=== PATIENT | female | born 1985 | race Hispanic/Latino ===

== ENCOUNTER 2018-07-20 18:16 | Emergency (ER) | payer SELFPAY ==
--- OUTSIDE RECORDS SUMMARY | 2018-07-20 18:17 | XMS REPORT | Clinical Summary ---
:1985 Author Organization [facility] Address [address] [place] [address] Care Team Providers Name Role Phone Asked, No Pcp Primary Care Provider Unavailable Allergies No Known Allergies Current Medications Prescription Sig. Disp. Refills Start Date End Date Status methylPREDNISolone follow package 21 tablet 0 03/29/2018 (MEDROL DOSEPAK) 4 mg directions 8 tablet Active Problems Not on file Encounters Date Type Specialty Care Team Description 03/29/2018 Emergency Emergency Medicine Ghazala Pinto DO Insect bite, initial encounter (Primary Dx) after 07/19/2017 Social History Tobacco Use Types Packs/Day Years Used Date Never Assessed Sex Assigned at Date Recorded Not on file Last Filed Vital Signs Vital Sign Reading Time Taken Blood Pressure 118/74 03/29/2018 1:54 PM CDT Pulse 86 03/29/2018 1:54 PM CDT Temperature 37.1 C (98.7 F) 03/29/2018 1:54 PM CDT Respiratory Rate 16 03/29/2018 1:54 PM CDT Oxygen Saturation 93% 03/29/2018 1:54 PM CDT Inhaled Oxygen Concentration - - Weight - - Height 160 cm (5' 3") 03/29/2018 1:53 PM CDT Body Mass Index - - Plan of Treatment Not on file Results Not on fileafter 07/19/2017
[2018-07-20 19:16] LABS: Absolute Monocytes 0.7 K/uL (0.1-1.3); Absolute Neutrophil 6.9 K/uL (1.8-8.0); Basophils % 0.4 % (0-1.3); Eosinophils % 1.8 % (0-4.4); Hematocrit 38.5 % (36.0-45.0); Lymphocytes % 20.7 % (15.3-44.8); MCH 28.6 pg (27.0-35.0); MPV 10.9 fL (7.6-11.3); Monocytes % 6.8 % (3.3-12.3); RBC Red Blood Cell Count 4.48 M/uL (3.86-4.86)
[2018-07-20] MEDS ORDERED: ONDANSETRON 4 MG/2 ML VIAL ONE (19:24)
[2018-07-20] MEDS ORDERED: MORPHINE 4 MG/ML SYR ONE (19:24)
[2018-07-20] MEDS ORDERED: NA CHLORIDE 0.9% 1,000 ML ONE (19:24)
[2018-07-20 19:27] LABS: Urine Blood TRACE (NEG); Urine Glucose NEGATIVE (NEG); Urine Protein NEGATIVE (NEG); Urine Specific Gravity 1.025 (1.005-1.030)
[2018-07-20 19:34] LABS: ALT/SGPT 21 U/L (12-78); AST/SGOT 15 U/L (15-37); Albumin 3.7 g/dL (3.4-5.0); Alkaline Phosphatase 91 U/L (45-117); BUN Blood Urea Nitrogen 9 mg/dL (7-18); Bicarbonate 26 mmol/L (21-32); Bilirubin Direct 0.1 mg/dL (0-0.2); Bilirubin Total 0.3 mg/dL (0.2-1.0); Glucose Level 96 mg/dL (74-106); Lipase 101 U/L (73-393); Potassium 3.8 mmol/L (3.5-5.1); Sodium Level 140 mmol/L (136-145)
--- NOTE | 2018-07-20 21:38 | RAD REPORT ---
EXAM DESCRIPTION: CT - Abdomen Pelvis W Contrast - 07/20/2018 9:15 pm CLINICAL HISTORY: Abdominal pain. COMPARISON: 2014 TECHNIQUE: Computed axial tomography of the abdomen and pelvis was obtained. 100 cc Isovue-300 is ad ministered intravenously. Oral contrast was given. All CT scans are performed using dose optimization technique as appropriate and may include automated exposure control or mA/KV adjustment according to patient size. FINDINGS: The liver, spleen, pancreas, adrenals and kidneys appear unremarkable. The appendix is normal caliber. There is no evidence of diverticulitis A tiny umbilical hernia is present 2 centimeter irregularly-shaped right ovarian cyst is present with a small amount of free-fluid IMPRESSION: 2 centimeter irregularly-shaped right ovarian cyst is present with a small amount of antonia e-fluid. The cyst has recently ruptured
--- NOTE | 2018-07-20 22:38 | ER ---
Nurse's Notes [facility] Name: Suzy Hammer Age: 32 yrs Sex: Female : 1985 Arrival Date: 07/20/2018 Time: 18:17 Bed 17 Private MD: Diagnosis: Other ovarian cysts-ruptured right ovarian cyst;Diarrhea, unspecified Presentation: 07/20 18:21 Presenting complaint: Patient states: "I've been having a sharp pain on the right side aj1 of my abdomen for the past 2 days. Today every time I take a deep breath I have a sharp pain, and also when I walk." Reports RLQ pain, diarrhea. Denies N/V, fever. Transition of care: patient was not received from another setting of care. Onset of symptoms was July 18, 2018. Risk Assessment: Do you want to hurt yourself or someone else? Patient reports no desire to harm self or others. Initial Sepsis Screen: Does the patient meet any 2 criteria? No. Patient's initial sepsis screen is negative. Does the patient have a suspected source of infection? Yes: Acute abdominal pain. Care prior to arrival: None. 18:21 Method Of Arrival: Ambulatory aj1 18:21 Acuity: YULIANA 3 aj1 Triage Assessment: 18:23 General: Appears in no apparent distress. uncomfortable, Behavior is calm, cooperative, aj1 appropriate for age. Pain: Complains of pain in right lower quadrant Pain currently is 8 out of 10 on a pain scale. Neuro: Level of Consciousness is awake, alert, obeys commands. Cardiovascular: Patient's skin is warm and dry. Respiratory: Airway is patent Respiratory effort is even, unlabored, Respiratory pattern is regular, symmetrical. GI: Reports lower abdominal pain, diarrhea, Patient currently denies nausea, vomiting. 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 - Social history:: Smoking status: Patient uses tobacco products, smokes one-half pack cigarettes per day. - Ebola Screening: : Patient denies travel to an Ebola-affected area in the 21 days before illness onset. Screenin:08 Abuse screen: Denies threats or abuse. Denies injuries from another. Nutritional ch screening: No deficits noted. Tuberculosis screening: No symptoms or risk factors identified. Fall Risk None identified. Assessment: 19:08 General: Appears in no apparent distress. uncomfortable, Behavior is calm, cooperative, ch appropriate for age. Pain: Complains of pain in right lower quadrant and abdomen diffusely Pain currently is 7 out of 10 on a pain scale. Pain began gradually. Respiratory: No deficits noted. GI: Bowel sounds present X 4 quads. Abd is soft X 4 quads Abdomen is tender to palpation in right lower quadrant and left lower quadrant. 20:54 Reassessment: Patient appears in no apparent distress at this time. No changes from ak1 previously documented assessment. Patient and/or family updated on plan of care and expected duration. Pain level reassessed. Patient is alert, oriented x 3, equal unlabored respirations, skin warm/dry/pink. pt waiting for CT scan. 21:25 Reassessment: Patient appears in no apparent distress at this time. pt in CT. ak1 Vital Signs: 18:23 BP 120 / 68; Pulse 88; Resp 18; Temp 97.1; Pulse Ox 100% on R/A; Weight 99.79 kg (R); aj1 Height 5 ft. 3 in. (160.02 cm) (R); Pain 8/10; 19:35 BP 94 / 78; Pulse 81; Resp 16; Pulse Ox 100% on R/A; ak1 20:54 BP 94 / 61; Pulse 67; Resp 16; Pulse Ox 98% on R/A; ak1 18:23 Body Mass Index 38.97 (99.79 kg, 160.02 cm) aj1 ED Course: 18:17 Patient arrived in ED. as 18:23 Triage completed. aj1 18:23 Arm band placed on Patient placed in an exam room. aj1 18:27 Dre Solares NP is PHCP. pm1 18:27 Moses Reyes MD is Attending Physician. pm1 18:51 Wendy Pierre, THERESA is Primary Nurse. ch 19:08 Patient has correct armband on for positive identification. Placed in gown. Bed in low ch position. Call light in reach. Side rails up X 1. Adult w/ patient. Warm blanket given. 19:08 Initial lab(s) drawn, by ri, sent to lab. Urine collected: clean catch specimen. Inserted saline lock: 22 gauge in left forearm, using aseptic technique. Blood collected. 19:08 No provider procedures requiring assistance completed. 19:23 ocular care technician notified pt finished oral contrast. ak1 21:06 Patient moved to ID via wheelchair. sj 21:14 CT Abd/Pelvis - W/Contrast In Process Unspecified. EDMS 21:16 CT completed. Patient tolerated procedure well. Patient moved back from ID. mw3 22:58 IV discontinued, intact, bleeding controlled, No redness/swelling at site. Pressure ak1 dressing applied. Administered Medications: 19:22 Drug: Zofran 4 mg Route: IVP; Site: left forearm; ak1 20:56 Follow up: Response: No adverse reaction ak1 19:22 Drug: NS 0.9% 1000 ml Route: IV; Rate: 1000 ml; Site: left forearm; ak1 20:58 Follow up: IV Status: Completed infusion ak1 19:23 Drug: morphine 4 mg Route: IVP; Site: left forearm; ak1 20:56 Follow up: Response: No adverse reaction ak1 22:56 Drug: TORadol 30 mg Route: IVP; Site: left forearm; ak1 22:56 Follow up: Response: No adverse reaction ak1 Outcome: 22:37 Discharge ordered by MD. pm1 22:58 Discharged to home ambulatory, with family. ak1 22:58 Condition: good 22:58 Discharge instructions given to patient, Instructed on discharge instructions, follow up and referral plans. no drinking with medication, no driving heavy equipment, medication usage, Demonstrated understanding of instructions, follow-up care, medications, Prescriptions given X 2. 22:59 Patient left the ED. ak1 Signatures: Dispatcher [employer] EDMS Wendy Pierre, Elisabeth Poe RN, ch, RN RN Patricia Espinoza Amelia as Krenek, Amber, RN RN ak1 Dre Solares NP FLAT BED OPERATOR pm1 Monica Paula mw3
--- NOTE | 2018-07-20 22:38 | EDPHYS ---
Physician Documentation [facility] Name: Suzy Hammer Age: 32 yrs Sex: Female : 1985 Arrival Date: 07/20/2018 Time: 18:17 Bed 17 Private MD: ED Physician Moses Reyes HPI: 07/20 21:34 This 32 yrs old Female presents to ER via Ambulatory with complaints of pm1 Abdominal Pain. 21:34 The patient presents with abdominal pain right lower quadrant. Onset: The pm1 symptoms/episode began/occurred 2 day(s) ago. The symptoms do not radiate. Associated signs and symptoms: Pertinent positives: diarrhea, Pertinent negatives: nausea and vomiting, blood in stools, chest pain, dysuria, fever, shortness of breath. The symptoms are described as sharp. Modifying factors: The symptoms are alleviated by nothing, the symptoms are aggravated by touching the area, walking. The patient has not experienced similar symptoms in the past. The patient has not recently seen a physician. 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 - Social history:: Smoking status: Patient uses tobacco products, smokes one-half pack cigarettes per day. - Ebola Screening: : Patient denies travel to an Ebola-affected area in the 21 days before illness onset. ROS: 21:34 Constitutional: Negative for fever, chills, and weight loss, Eyes: Negative for injury, pm1 pain, redness, and discharge, ENT: Negative for injury, pain, and discharge, Neck: Negative for injury, pain, and swelling, Cardiovascular: Negative for chest pain, palpitations, and edema, Respiratory: Negative for shortness of breath, cough, wheezing, and pleuritic chest pain. 21:34 Back: Negative for injury and pain, : Negative for injury, bleeding, discharge, and swelling, MS/Extremity: Negative for injury and deformity, Skin: Negative for injury, rash, and discoloration, Neuro: Negative for headache, weakness, numbness, tingling, and seizure. 21:34 Abdomen/GI: Positive for abdominal pain, diarrhea, Negative for nausea and vomiting. Exam: 21:34 Constitutional: This is a well developed, well nourished patient who is awake, alert, pm1 and in no acute distress. Head/Face: Normocephalic, atraumatic. Eyes: Pupils equal round and reactive to light, extra-ocular motions intact. Lids and lashes normal. Conjunctiva and sclera are non-icteric and not injected. Cornea within normal limits. Periorbital areas with no swelling, redness, or edema. ENT: Nares patent. No nasal discharge, no septal abnormalities noted. Tympanic membranes are normal and external auditory canals are clear. Oropharynx with no redness, swelling, or masses, exudates, or evidence of obstruction, uvula midline. Mucous membranes moist. Neck: Trachea midline, no thyromegaly or masses palpated, and no cervical lymphadenopathy. Supple, full range of motion without nuchal rigidity, or vertebral point tenderness. No Meningismus. Chest/axilla: Normal chest wall appearance and motion. Nontender with no deformity. No lesions are appreciated. Cardiovascular: Regular rate and rhythm with a normal S1 and S2. No gallops, murmurs, or rubs. Normal PMI, no JVD. No pulse deficits. Respiratory: Lungs have equal breath sounds bilaterally, clear to auscultation and percussion. No rales, rhonchi or wheezes noted. No increased work of breathing, no retractions or nasal flaring. 21:34 Back: No spinal tenderness. No costovertebral tenderness. Full range of motion. Skin: Warm, dry with normal turgor. Normal color with no rashes, no lesions, and no evidence of cellulitis. MS/ Extremity: Pulses equal, no cyanosis. Neurovascular intact. Full, normal range of motion. 21:34 Abdomen/GI: Inspection: abdomen appears normal, Bowel sounds: normal, Palpation: soft, mild abdominal tenderness, in the right lower quadrant, mass, is not appreciated, rebound tenderness, is not appreciated. 21:34 Neuro: Orientation: is normal, Motor: is normal, Sensation: is normal, no obvious gross deficits. Vital Signs: 18:23 BP 120 / 68; Pulse 88; Resp 18; Temp 97.1; Pulse Ox 100% on R/A; Weight 99.79 kg (R); aj1 Height 5 ft. 3 in. (160.02 cm) (R); Pain 8/10; 19:35 BP 94 / 78; Pulse 81; Resp 16; Pulse Ox 100% on R/A; ak1 20:54 BP 94 / 61; Pulse 67; Resp 16; Pulse Ox 98% on R/A; ak1 18:23 Body Mass Index 38.97 (99.79 kg, 160.02 cm) aj1 MDM: 18:38 Patient medically screened. pm1 21:34 Data reviewed: vital signs. Data interpreted: Pulse oximetry: on room air is 98 %. pm1 Interpretation: normal. 22:36 Counseling: I had a detailed discussion with the patient and/or guardian regarding: the pm1 historical points, exam findings, and any diagnostic results supporting the discharge/admit diagnosis, lab results, radiology results, the need for outpatient follow up, to return to the emergency department if symptoms worsen or persist or if there are any questions or concerns that arise at home. 07/20 18:50 Order name: Basic Metabolic Panel; Complete Time: 19:36 pm1 07/20 18:50 Order name: CBC with Diff; Complete Time: 19:26 pm1 07/20 18:50 Order name: Creatinine for Radiology; Complete Time: 19:36 pm1 07/20 18:50 Order name: Hepatic Function; Complete Time: 19:36 pm1 07/20 18:50 Order name: Lipase; Complete Time: 19:36 pm1 07/20 19:14 Order name: Urine --Ancillary (enter results); Complete Time: 19:36 ms 07/20 18:50 Order name: IV Saline Lock; Complete Time: 19:12 pm1 07/20 18:50 Order name: Labs collected and sent; Complete Time: 19:12 pm1 07/20 18:50 Order name: CT Abd/Pelvis - W/Contrast; Complete Time: 22:50 pm1 07/20 19:14 Order name: Urine Dipstick--Ancillary (enter results); Complete Time: 19:36 ms Administered Medications: 19:22 Drug: Zofran 4 mg Route: IVP; Site: left forearm; ak1 20:56 Follow up: Response: No adverse reaction ak1 19:22 Drug: NS 0.9% 1000 ml Route: IV; Rate: 1000 ml; Site: left forearm; ak1 20:58 Follow up: IV Status: Completed infusion ak1 19:23 Drug: morphine 4 mg Route: IVP; Site: left forearm; ak1 20:56 Follow up: Response: No adverse reaction ak1 22:56 Drug: TORadol 30 mg Route: IVP; Site: left forearm; ak1 22:56 Follow up: Response: No adverse reaction ak1 Disposition: 07/20/18 22:37 Discharged to Home. Impression: Other ovarian cysts - ruptured right ovarian cyst, Diarrhea, unspecified. - Condition is Stable. - Discharge Instructions: Food Choices to Help Relieve Diarrhea, Adult, Diarrhea, Adult, Ovarian Cyst. - Prescriptions for Tylenol- Codeine #3 300-30 mg Oral Tablet - take 2 tablets by ORAL route every 6 hours As needed; 20 tablet. Naprosyn 500 mg Oral Tablet - take 1 tablet by ORAL route 2 times per day take with food; 30 tablet. - Medication Reconciliation Form, Thank You Letter, Prescription Opioid Use form. - Follow up: Emergency Department; When: As needed; Reason: Worsening of condition. Follow up: Private Physician; When: 2 - 3 days; Reason: Recheck today's complaints, Continuance of care, Re-evaluation by your physician. - Problem is new. - Symptoms have improved. Addendum: 07/23/2018 07:44 Co-signature as Attending Physician, Moses Reyes MD. r n Signatures: Dispatcher [employer] EDMS Elisabeth Rosales RN RN aj1 Moses Reyes MD MD rn Krenek, Amber, RN RN ak1 Dre Solares, OCCUPATIONAL THERAPIST AIDE OCCUPATIONAL THERAPIST AIDE pm1 Corrections: (The following items were deleted from the chart) 07/20 22:38 22:37 07/20/2018 22:37 Discharged to Home. Impression: Other ovarian cysts - ruptured pm1 ovarian cyst; Diarrhea, unspecified. Condition is Stable. Forms are Medication Reconciliation Form, Thank You Letter, Antibiotic Education, Prescription Opioid Use. Follow up: Emergency Department; When: As needed; Reason: Worsening of condition. Follow up: Private Physician; When: 2 - 3 days; Reason: Recheck today's complaints, Continuance of care, Re-evaluation by your physician. Problem is new. Symptoms have improved. pm1 22:59 22:38 07/20/2018 22:37 Discharged to Home. Impression: Other ovarian cysts - ruptured ak1 right ovarian cyst; Diarrhea, unspecified. Condition is Stable. Discharge Instructions: Food Choices to Help Relieve Diarrhea, Adult, Diarrhea, Adult, Ovarian Cyst. Prescriptions for Tylenol-Codeine #3 300-30 mg Oral Tablet - take 2 tablets by ORAL route every 6 hours As needed; 20 tablet, Naprosyn 500 mg Oral Tablet - take 1 tablet by ORAL route 2 times per day take with food; 30 tablet. and Forms are Medication Reconciliation Form, Thank You Letter, Prescription Opioid Use. Follow up: Emergency Department; When: As needed; Reason: Worsening of condition. Follow up: Private Physician; When: 2 - 3 days; Reason: Recheck today's complaints, Continuance of care, Re-evaluation by your physician. Problem is new. Symptoms have improved. pm1
[2018-07-20] MEDS ORDERED: KETOROLAC 30 MG/ML INJ ONE (22:53)
[2018-07-20 23:18] VITALS: TEMP 97.1
[2018-07-20 23:20] VITALS: BP 94/61; O2SAT 98
== END 2018-07-20 22:59 | disposition home or self-care (01) ==
LOC: ER 18:16
DX: N83.291 Other ovarian cyst, right side (principal); R19.7 Diarrhea, unspecified; F17.210 Nicotine dependence, cigarettes, uncomplicated
CPT/HCPCS: 36415; 74177; 80048; 80076; 81003; 81025; 83690; 85025; 96361; 96374; 96375; 99284; J2405; J7030; Q9967

== ENCOUNTER 2018-11-01 21:33 | Emergency (ER) | payer SELFPAY ==
--- OUTSIDE RECORDS SUMMARY | 2018-11-01 21:36 | XMS REPORT | Clinical Summary ---
:1985 Author Organization [facility] Address [address] [place] [address] Care Team Providers Name Role Phone Asked, No Pcp Primary Care Provider Unavailable Allergies No Known Allergies Medications Medication Sig Dispensed Refills Start Date End Date Status methylPREDNISolone follow package 21 tablet 0 03/29/2018 (MEDROL DOSEPAK) 4 mg directions 8 tablet Active Problems Not on file Encounters Date Type Specialty Care Team Description 03/29/2018 Emergency Emergency Medicine Ghazala Pinto DO Insect bite, initial encounter (Primary Dx) after 10/31/2017 Social History Tobacco Use Types Packs/Day Years Used Date Never Assessed Sex Assigned at Date Recorded Not on file Job Start Date Occupation Industry Not on file Not on file Not on file Travel History Travel Start Travel End No recent travel history available. Last Filed Vital Signs Vital Sign Reading [...] Not on file Results Not on fileafter 10/31/2017 Advance Directives Patient has advance care planning documents on file. For more information, please contact:[facility] [place] [address]
[2018-11-01 22:22] LABS: Absolute Lymphocytes (CBC) 2.6 K/uL (0.7-4.9); Absolute Monocytes 0.7 K/uL (0.1-1.3); Absolute Neutrophil 7.5 K/uL (1.8-8.0); Basophils % 0.5 % (0-1.3); Eosinophils % 2.1 % (0-4.4); Lymphocytes % 23.2 % (15.3-44.8); MPV 10.5 fL (7.6-11.3); Monocytes % 6.4 % (3.3-12.3); RBC Red Blood Cell Count 4.41 M/uL (3.86-4.86)
[2018-11-01 22:53] LABS: ALT/SGPT 38 U/L (12-78); AST/SGOT 28 U/L (15-37); Albumin 3.5 g/dL (3.4-5.0); Alkaline Phosphatase 110 U/L (45-117); BUN Blood Urea Nitrogen 12 mg/dL (7-18); Bicarbonate 24 mmol/L (21-32); Bilirubin Direct < 0.1 mg/dL (0-0.2); Bilirubin Total 0.2 mg/dL (0.2-1.0); Glucose Level 87 mg/dL (74-106); Potassium 3.4 mmol/L (3.5-5.1); Protein, Total 7.3 g/dL (6.4-8.2); Sodium Level 140 mmol/L (136-145); Troponin (Emerg Dept Use Only) < 0.02 ng/mL (0.0-0.045)
--- NOTE | 2018-11-01 22:58 | ER ---
Nurse's Notes [facility] Name: Suzy Hammer Age: 33 yrs Sex: Female : 1985 Arrival Date: 11/01/2018 Time: 21:34 Bed 28 Private MD: Diagnosis: Chest pain, unspecified Presentation: 11/01 21:44 Presenting complaint: Patient states: "Early today I had a sharp pain on her neck and aj1 then through the day my chest started hurting, and when I try to take a deep breath it hurts, I get a sharp pain" Denies cough, fever, congestion. Denies injury. Denies shortness of breath, palpitations. Transition of care: patient was not received from another setting of care. Onset of symptoms was November 01, 2018. Risk Assessment: Do you want to hurt yourself or someone else? Patient reports no desire to harm self or others. Initial Sepsis Screen: Does the patient meet any 2 criteria? No. Patient's initial sepsis screen is negative. Does the patient have a suspected source of infection? No. Patient's initial sepsis screen is negative. Care prior to arrival: None. 21:44 Method Of Arrival: Ambulatory aj 21:44 Acuity: YULIANA 3 aj1 Triage Assessment: 21:46 General: Appears in no apparent distress. comfortable, Behavior is calm, cooperative, aj1 appropriate for age. Pain: Complains of pain in anterior aspect of left upper chest Pain radiates to neck Pain currently is 8 out of 10 on a pain scale. Neuro: Level of Consciousness is awake, alert, obeys commands. Cardiovascular: Reports chest pain, Patient's skin is warm and dry. 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 - Social history:: Smoking status: Patient uses tobacco products, denies chronic smoking, but will smoke occasionally. - Ebola Screening: : Patient denies travel to an Ebola-affected area in the 21 days before illness onset. Screenin:17 Abuse screen: Denies threats or abuse. Denies injuries from another. Nutritional rv screening: No deficits noted. Tuberculosis screening: No symptoms or risk factors identified. Fall Risk None identified. Assessment: 22:16 General: Appears in no apparent distress. uncomfortable, Behavior is calm, cooperative. rv Pain: Complains of pain in chest Pain radiates to left arm Pain began gradually, today. Neuro: Level of Consciousness is awake, alert, obeys commands, Oriented to person, place, time, situation. Cardiovascular: Capillary refill < 3 seconds. Respiratory: Airway is patent. GI: No signs and/or symptoms were reported involving the gastrointestinal system. : No signs and/or symptoms were reported regarding the genitourinary system. EENT: No signs and/or symptoms were reported regarding the EENT system. Derm: Skin is intact. Vital Signs: 21:46 BP 110 / 70; Pulse 91; Resp 20; Temp 97.7; Pulse Ox 97% on R/A; Weight 101.6 kg (R); aj1 Height 5 ft. 3 in. (160.02 cm) (R); Pain 8/10; 23:15 BP 116 / 58; Pulse 85; Resp 16; Temp 98.8; Pulse Ox 98% ; lt1 21:46 Body Mass Index 39.68 (101.60 kg, 160.02 cm) aj1 ED Course: 21:34 Patient arrived in ED. es 21:45 Triage completed. aj1 21:46 Arm band placed on Patient placed in an exam room. aj1 21:57 Dre Solares NP is PHCP. pm1 21:57 Rick Mathew MD is Attending Physician. pm1 22:00 Inserted saline lock: 20 gauge in left antecubital area, using aseptic technique. Blood rv collected. Patient maintains SpO2 saturation greater than 95% on room air. 22:17 Patient has correct armband on for positive identification. Placed in gown. Bed in low rv position. Call light in reach. Side rails up X 1. Adult w/ patient. equipment monitor phototypesetting on. Pulse ox on. NIBP on. 23:02 Chest Single View In Process Unspecified. EDMS 23:45 No provider procedures requiring assistance completed. IV discontinued, bleeding rv controlled, No redness/swelling at site. Pressure dressing applied. Administered Medications: 23:15 Drug: TORadol 30 mg Route: IVP; Site: left antecubital; rv 23:45 Follow up: Response: Pain is decreased rv Outcome: 22:57 Discharge ordered by MD. pm1 23:46 Discharged to home ambulatory. rv 23:46 Condition: good 23:46 Discharge instructions given to patient, Instructed on discharge instructions, follow up and referral plans. Demonstrated understanding of instructions, follow-up care. 23:46 Patient left the ED. rv Signatures: Dispatcher [employer] Elisabeth Olmedo RN RN aj1 Margarita Cantu Patrick, ROOM MANAGER ROOM MANAGER pm1 Facundo Quezada RN RN rv Digna Cota lt1
--- NOTE | 2018-11-01 22:59 | EDPHYS ---
Physician Documentation [facility] Name: Suzy Hammer Age: 33 yrs Sex: Female : 1985 Arrival Date: 11/01/2018 Time: 21:34 Bed 28 Private MD: ED Physician Rick Mathew HPI: 11/01 22:07 This 33 yrs old Female presents to ER via Ambulatory with complaints of Chest pm1 Pain, Neck Pain, <24hrs Old. 22:07 The patient or guardian reports chest pain that is located primarily in the anterior pm1 aspect of left upper chest. The pain does not radiate. Associated signs and symptoms: Pertinent positives: Left sided neck pain, Pertinent negatives: abdominal pain, cough, diaphoresis, dizziness, nausea, shortness of breath, vomiting. The chest pain is described as sharp. Duration: The patient or guardian reports a single episode, that is still ongoing. Modifying factors: The symptoms are alleviated by Better with palpation to area of pain. the symptoms are aggravated by deep breath. Severity of pain: in the emergency department the pain is unchanged. The patient has not experienced similar symptoms in the past. The patient has not recently seen a physician. 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 - Social history:: Smoking status: Patient uses tobacco products, denies chronic smoking, but will smoke occasionally. - Ebola Screening: : Patient denies travel to an Ebola-affected area in the 21 days before illness onset. ROS: 22:07 Constitutional: Negative for fever, chills, and weight loss, Eyes: Negative for injury, pm1 pain, redness, and discharge, ENT: Negative for injury, pain, and discharge. 22:07 Abdomen/GI: Negative for abdominal pain, nausea, vomiting, diarrhea, and constipation, Back: Negative for injury and pain, : Negative for injury, bleeding, discharge, and swelling, MS/Extremity: Negative for injury and deformity, Skin: Negative for injury, rash, and discoloration, Neuro: Negative for headache, weakness, numbness, tingling, and seizure. 22:07 Neck: Positive for stiffness, of the left trapezius. 22:07 Cardiovascular: Positive for chest pain, Negative for edema, orthopnea, palpitations. Exam: 22:07 Constitutional: This is a well developed, well nourished patient who is awake, alert, pm1 and in no acute distress. Head/Face: Normocephalic, atraumatic. Eyes: Pupils equal round and reactive to light, extra-ocular motions intact. Lids and lashes normal. Conjunctiva and sclera are non-icteric and not injected. Cornea within normal limits. Periorbital areas with no swelling, redness, or edema. ENT: Nares patent. No nasal discharge, no septal abnormalities noted. Tympanic membranes are normal and external auditory canals are clear. Oropharynx with no redness, swelling, or masses, exudates, or evidence of obstruction, uvula midline. Mucous membranes moist. Neck: Trachea midline, no thyromegaly or masses palpated, and no cervical lymphadenopathy. Supple, full range of motion without nuchal rigidity, or vertebral point tenderness. No Meningismus. 22:07 Cardiovascular: Regular rate and rhythm with a normal S1 and S2. No gallops, murmurs, or rubs. Normal PMI, no JVD. No pulse deficits. Respiratory: Lungs have equal breath sounds bilaterally, clear to auscultation and percussion. No rales, rhonchi or wheezes noted. No increased work of breathing, no retractions or nasal flaring. Abdomen/GI: Soft, non-tender, with normal bowel sounds. No distension or tympany. No guarding or rebound. No evidence of tenderness throughout. Back: No spinal tenderness. No costovertebral tenderness. Full range of motion. Skin: Warm, dry with normal turgor. Normal color with no rashes, no lesions, and no evidence of cellulitis. MS/ Extremity: Pulses equal, no cyanosis. Neurovascular intact. Full, normal range of motion. 22:07 Chest/axilla: Inspection: normal, Palpation: tenderness, of the anterior aspect of left upper chest, that totally reproduces the patient's complaints, Deep breathing reproduces her pain. 22:07 Neuro: Orientation: is normal, Motor: is normal, moves all fours. Vital Signs: 21:46 BP 110 / 70; Pulse 91; Resp 20; Temp 97.7; Pulse Ox 97% on R/A; Weight 101.6 kg (R); aj1 Height 5 ft. 3 in. (160.02 cm) (R); Pain 8/10; 23:15 BP 116 / 58; Pulse 85; Resp 16; Temp 98.8; Pulse Ox 98% ; lt1 21:46 Body Mass Index 39.68 (101.60 kg, 160.02 cm) aj1 MDM: 21:57 Patient medically screened. pm1 22:10 Data reviewed: vital signs. Data interpreted: Pulse oximetry: on room air is 97 %. pm1 Interpretation: normal. 22:57 Counseling: I had a detailed discussion with the patient and/or guardian regarding: the pm1 historical points, exam findings, and any diagnostic results supporting the discharge/admit diagnosis, lab results, radiology results, the need for outpatient follow up, to return to the emergency department if symptoms worsen or persist or if there are any questions or concerns that arise at home. 11/01 22:19 Order name: Basic Metabolic Panel; Complete Time: 22:56 EDMS 11/01 22:19 Order name: Liver (Hepatic) Function; Complete Time: 22:56 EDMS 11/01 21:58 Order name: EKG; Complete Time: 22:27 pm1 11/01 21:58 Order name: Cardiac monitoring; Complete Time: 22:18 pm1 11/01 21:58 Order name: EKG - Nurse/Tech; Complete Time: 22:18 pm1 11/01 22:19 Order name: Troponin (Emerg Dept Use Only); Complete Time: 22:56 EDMS 11/01 22:19 Order name: CBC with Automated Diff; Complete Time: 22:39 EDMS 11/01 22:22 Order name: Chest Single View EDMS 11/01 21:58 Order name: IV Saline Lock; Complete Time: 22:19 pm1 11/01 21:58 Order name: Labs collected and sent; Complete Time: 22:19 pm1 11/01 21:58 Order name: O2 Per Protocol; Complete Time: 22:19 pm1 11/01 21:58 Order name: O2 Sat Monitoring; Complete Time: 22:19 pm1 Administered Medications: 23:15 Drug: TORadol 30 mg Route: IVP; Site: left antecubital; rv 23:45 Follow up: Response: Pain is decreased rv Disposition: 11/02 06:20 Co-signature as Attending Physician, Rick Mathew MD I agree with the assessment and tw4 plan of care. Disposition: 11/01/18 22:57 Discharged to Home. Impression: Chest pain, unspecified. - Condition is Stable. - Discharge Instructions: Nonspecific Chest Pain. - Medication Reconciliation Form, Thank You Letter, Antibiotic Education, Prescription Opioid Use form. - Follow up: Emergency Department; When: As needed; Reason: Worsening of condition. Follow up: Private Physician; When: 2 - 3 days; Reason: Recheck today's complaints, Continuance of care, Re-evaluation by your physician. - Problem is new. - Symptoms have improved. Signatures: Dispatcher [employer] EDMS Elisabeth Rosales, RN RN aj1 Dre Solares, FRENCH EDGE OPERATOR FRENCH EDGE OPERATOR pm1 Rick Mathew MD MD tw4 Facundo Quezada RN RN rv Corrections: (The following items were deleted from the chart) 11/01 22:32 22:27 BASIC METABOLIC PANEL+C.LAB.BRZ ordered. [facility] EDID 22:32 22:27 CBC+H.LAB.BRZ ordered. [facility] EDID 22:32 22:27 HEPATIC FUNCTION+C.LAB.BRZ ordered. [facility] EDID 22:32 22:27 TROPONIN (EMERG DEPT USE ONLY)+C.LAB.BRZ ordered. [facility] EDID 22:57 22:27 Chest Single View+RAD.RAD.BRZ ordered. [facility] EDID 23:46 22:57 11/01/2018 22:57 Discharged to Home. Impression: Chest pain, unspecified. rv Condition is Stable. Forms are Medication Reconciliation Form, Thank You Letter, Antibiotic Education, Prescription Opioid Use. Follow up: Emergency Department; When: As needed; Reason: Worsening of condition. Follow up: Private Physician; When: 2 - 3 days; Reason: Recheck today's complaints, Continuance of care, Re-evaluation by your physician. Problem is new. Symptoms have improved. pm1
[2018-11-01] MEDS ORDERED: KETOROLAC 30 MG/ML INJ ONE (23:18)
[2018-11-02 01:18] VITALS: BP 116/58; TEMP 98.8; O2SAT 98
--- NOTE | 2018-11-02 07:45 | EKG ---
Test Date: 2018-11-01 Test Time: 21:55:27 Phd Internship: MEASUREMENT RESULTS: Intervals: Rate: 76 MN: 140 QRSD: 94 QT: 384 QTc: 432 [place]: P: 59 MN: 140 QRS: 40 T: 31 INTERPRETIVE STATEMENTS: Normal sinus rhythm with sinus arrhythmia Normal ECG No previous ECG available for comparison Electronically Signed On 11-02-18 06:51:44 VOICE PROFESSOR by Roscoe Cummings
--- NOTE | 2018-11-02 08:49 | RAD REPORT ---
EXAM DESCRIPTION: RAD - Chest Single View - 11/01/2018 11:01 pm CLINICAL HISTORY: Chest pain COMPARISON: July 2015 TECHNIQUE: AP portable chest image was obtained 2240 hours . FINDINGS: Lungs are clear. Heart and vasculature are normal. No measurable pleural effusion and no p neumothorax. No acute bony abnormality seen. No acute aortic findings suspected. IMPRESSION: No acute cardiopulmonary process. No significant interval change.
== END 2018-11-01 23:46 | disposition home or self-care (01) ==
LOC: ER 21:33
DX: R07.9 Chest pain, unspecified (principal); Z72.0 Tobacco use
CPT/HCPCS: 36415; 71045; 80048; 80076; 84484; 85025; 93005; 96374; 99285

== ENCOUNTER 2019-03-07 20:14 | Emergency (ER) | payer SELFPAY ==
[2019-03-07] MEDS ORDERED: NA CHLORIDE 0.9% 1,000 ML ONE (20:47)
[2019-03-07 21:02] LABS: Basophils % 0.3 % (0-1.3); Eosinophils % 0.8 % (0-4.4); Hematocrit 39.5 % (36.0-45.0); Lymphocytes % 23.1 % (15.3-44.8); MPV 10.7 fL (7.6-11.3); Monocytes % 6.3 % (3.3-12.3); RBC Red Blood Cell Count 4.51 M/uL (3.86-4.86)
[2019-03-07 21:20] LABS: ALT/SGPT 19 U/L (12-78); AST/SGOT 13 U/L (15-37); Albumin 3.7 g/dL (3.4-5.0); Alkaline Phosphatase 71 U/L (45-117); BUN Blood Urea Nitrogen 7 mg/dL (7-18); Bicarbonate 25 mmol/L (21-32); Bilirubin Direct 0.1 mg/dL (0-0.2); Bilirubin Total 0.5 mg/dL (0.2-1.0); Glucose Level 99 mg/dL (74-106); Lipase 68 U/L (73-393); Magnesium 2.3 mg/dL (1.8-2.4); NT PRO-BNP 23 pg/mL (<125); Potassium 3.4 mmol/L (3.5-5.1); Protein, Total 7.2 g/dL (6.4-8.2); Sodium Level 143 mmol/L (136-145); Troponin (Emerg Dept Use Only) < 0.02 ng/mL (0.0-0.045)
--- NOTE | 2019-03-07 21:27 | RAD REPORT ---
EXAM DESCRIPTION: RAD - Chest Single View - 03/07/2019 9:14 pm CLINICAL HISTORY: CHEST PAIN Chest pain. COMPARISON: <Comparisons> FINDINGS: Portable technique limits examination quality. The lungs are grossly clear. The heart is normal in size. No displaced fractures. IMPRESSION: No acute intrathoracic process suspected.
[2019-03-07] MEDS ORDERED: MORPHINE 4 MG/ML SYR ONE (21:30)
[2019-03-07] MEDS ORDERED: ONDANSETRON 4 MG/2 ML VIAL ONE (21:30)
[2019-03-07] MEDS ORDERED: POTASSIUM 25 MEQ EFFERV TAB ONE (21:56)
[2019-03-07 22:18] LABS: Protime INR 1.01
[2019-03-07 22:23] LABS: Urine Blood TRACE (NEG); Urine Glucose NEGATIVE (NEG); Urine Protein TRACE (NEG); Urine Specific Gravity 1.025 (1.005-1.030); Urine pH 6.5 (5.0-7.0)
--- NOTE | 2019-03-07 23:38 | ER ---
Nurse's Notes [facility] Name: Suzy Hammer Age: 33 yrs Sex: Female : 1985 Arrival Date: 03/07/2019 Time: 20:15 Bed 8 Private MD: Diagnosis: Chest pain, unspecified Presentation: 03/07 20:23 Presenting complaint: Patient states: Chest pain for the past 3 days that radiates to aj1 the left arm, that is worse with deep breathing. Denies cough, denies SOB. Transition of care: patient was not received from another setting of care. Onset of symptoms was March 04, 2019. Risk Assessment: Do you want to hurt yourself or someone else? Patient reports no desire to harm self or others. Initial Sepsis Screen: Does the patient meet any 2 criteria? No. Patient's initial sepsis screen is negative. Does the patient have a suspected source of infection? No. Patient's initial sepsis screen is negative. Care prior to arrival: None. 20:23 Method Of Arrival: Ambulatory aj1 20:23 Acuity: YULIANA 3 aj1 Triage Assessment: 20:24 General: Appears in no apparent distress. comfortable, Behavior is calm, cooperative, aj1 appropriate for age. Pain: Complains of pain in chest Pain radiates to left arm Pain currently is 8 out of 10 on a pain scale. Quality of pain is described as stabbing, Pain began 2-3 days ago. Neuro: Level of Consciousness is awake, alert, obeys commands, Oriented to person, place, time, situation. Cardiovascular: Reports chest pain, Patient's skin is warm and dry. Respiratory: Airway is patent Respiratory effort is even, unlabored, Respiratory pattern is regular, symmetrical. 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 - Social history:: Smoking status: Patient/guardian denies using tobacco. - Ebola Screening: : Patient denies travel to an Ebola-affected area in the 21 days before illness onset. - Family history:: not pertinent. Screenin:48 Abuse screen: Denies threats or abuse. Nutritional screening: No deficits noted. jd3 Tuberculosis screening: No symptoms or risk factors identified. Fall Risk IV access (20 points). Ambulatory Aid- None/Bed Rest/Nurse Assist (0 pts). Gait- Normal/Bed Rest/Wheelchair (0 pts) Mental Status- Oriented to own ability (0 pts). Total Panchal Fall Scale indicates No Risk (0-24 pts). Assessment: 20:46 General: Appears in no apparent distress. uncomfortable, Behavior is calm, cooperative, jd3 appropriate for age. Pain: Complains of pain in chest Pain radiates to left arm Pain currently is 8 out of 10 on a pain scale. Quality of pain is described as sharp, Is continuous. Neuro: Level of Consciousness is awake, alert, obeys commands, Oriented to person, place, time, situation. Cardiovascular: Reports chest pain, Heart tones S1 S2 present Capillary refill < 3 seconds Patient's skin is warm and dry. Rhythm is regular. Respiratory: Airway is patent Respiratory effort is even, unlabored, Respiratory pattern is regular, symmetrical, Breath sounds are clear bilaterally. Denies shortness of breath. GI: Abdomen is round non-distended, Abd is soft and non tender X 4 quads. Reports diarrhea, Patient currently denies abdominal pain, nausea, vomiting. : No signs and/or symptoms were reported regarding the genitourinary system. EENT: No signs and/or symptoms were reported regarding the EENT system. Derm: Skin is intact, Skin is dry, Skin is normal, Skin temperature is warm. Musculoskeletal: Circulation, motion, and sensation intact. Range of motion: intact in all extremities. 21:30 Reassessment: Patient appears in no apparent distress at this time. Patient and/or jd3 family updated on plan of care and expected duration. Pain level reassessed. Patient is alert, oriented x 3, equal unlabored respirations, skin warm/dry/pink. 22:15 Reassessment: Patient appears in no apparent distress at this time. Patient and/or jd3 family updated on plan of care and expected duration. Pain level reassessed. Patient is alert, oriented x 3, equal unlabored respirations, skin warm/dry/pink. 23:00 Reassessment: Patient appears in no apparent distress at this time. Patient and/or jd3 family updated on plan of care and expected duration. Pain level reassessed. Patient is alert, oriented x 3, equal unlabored respirations, skin warm/dry/pink. reporting pain, provider notified. no new orders at this time. 23:49 Reassessment: Patient appears in no apparent distress at this time. Patient and/or jd3 family updated on plan of care and expected duration. Pain level reassessed. Patient is alert, oriented x 3, equal unlabored respirations, skin warm/dry/pink. Neuro: Level of Consciousness is awake, alert, obeys commands, Oriented to person, place, time, situation. Cardiovascular: Capillary refill < 3 seconds Patient's skin is warm and dry. Respiratory: Airway is patent Respiratory effort is even, unlabored, Respiratory pattern is regular, symmetrical. GI: No signs and/or symptoms were reported involving the gastrointestinal system. Vital Signs: 20:24 BP 117 / 70; Pulse 77; Resp 18; Temp 97.4; Pulse Ox 99% on R/A; Weight 106.59 kg (R); aj1 Height 5 ft. 3 in. (160.02 cm) (R); Pain 8/10; 21:44 BP 110 / 72; Pulse 67; Resp 17 S; Pulse Ox 100% on R/A; Pain 7/10; jd3 22:24 BP 111 / 70; Pulse 71; Resp 18 S; Pulse Ox 99% on R/A; cc3 23:52 BP 106 / 73; Pulse 71; Resp 16 S; Pulse Ox 98% on R/A; jd3 20:24 Body Mass Index 41.63 (106.59 kg, 160.02 cm) aj1 ED Course: 20:15 Patient arrived in ED. es 20:20 Saman Orourke, THERESA is Primary Nurse. jd3 20:24 Triage completed. aj1 20:24 Arm band placed on Patient placed in an exam room. aj1 20:28 Omega Valadez MD is Attending Physician. [facility] 20:35 Inserted saline lock: 20 gauge in right antecubital area, using aseptic technique. jd3 Blood collected. Patient maintains SpO2 saturation greater than 95% on room air. 20:49 Patient has correct armband on for positive identification. Bed in low position. Call jd3 light in reach. Side rails up X 1. grinder operator on. Pulse ox on. NIBP on. 21:12 XRAY Chest (1 view) In Process Unspecified. EDMS 22:22 Notified ED physician of a critical lab result(s). D-dimer of [id number] Dr Valadez notified. bb 22:45 CT Chest For PE Angio In Process Unspecified. EDMS 23:13 US Extremity Venous W Compression Jose In Process Unspecified. EDMS 23:51 No provider procedures requiring assistance completed. IV discontinued, intact, jd3 bleeding controlled, No redness/swelling at site. Pressure dressing applied. Administered Medications: 20:35 Drug: NS 0.9% 1000 ml Route: IV; Rate: 125 ml/hr; Site: right antecubital; cc3 23:55 Follow up: Response: No adverse reaction; IV Status: Order to discontinue infusion jd3 21:19 Drug: morphine 4 mg Route: IVP; Site: right antecubital; jd3 22:15 Follow up: Response: No adverse reaction jd3 21:19 Drug: Zofran 4 mg Route: IVP; Site: right antecubital; jd3 22:15 Follow up: Response: No adverse reaction jd3 21:44 Drug: Potassium Effervescent Tablet 25 mEq Route: PO; jd3 22:40 Follow up: Response: No adverse reaction jd3 23:36 CANCELLED (Physician Discretion): [place] 10 mg-325 mg 1 tabs PO once jd3 23:36 Drug: [place] (7.5 mg-325 mg) 1 tabs Route: PO; jd3 23:54 Follow up: Response: No adverse reaction jd3 23:48 Drug: Aspirin 81 mg Route: PO; jd3 23:54 Follow up: Response: No adverse reaction jd3 Outcome: 23:35 Discharge ordered by MD. palmer 23:51 Discharged to home ambulatory, with family. jd3 23:51 Condition: stable 23:51 Discharge instructions given to patient, family, Instructed on discharge instructions, follow up and referral plans. medication usage, Demonstrated understanding of instructions, follow-up care, medications, Prescriptions given X 2. 23:56 Patient left the ED. jd3 Signatures: Dispatcher [employer] Elisabeth Olmedo RN RN ajOmega Meeks MD MD cha Salyer, Edna es Ballard, Brenda, RN RN Saman Owens RN RN jd3 Alysia Davalos cc3 Corrections: (The following items were deleted from the chart) 21:52 21:44 Pulse 67bpm; Resp 17bpm; Spontaneous; Pulse Ox 100% RA; Pain 03/27; pinky vance
--- NOTE | 2019-03-07 23:39 | EDPHYS ---
Physician Documentation [facility] Name: Suzy Hammer Age: 33 yrs Sex: Female : 1985 Arrival Date: 03/07/2019 Time: 20:15 Bed 8 Private MD: ED Physician Omega Valadez HPI: 03/07 20:35 This 33 yrs old Female presents to ER via Ambulatory with complaints of Chest estela Pain. 20:35 The patient or guardian reports chest pain that is located primarily in the anterior estela chest wall, left. The pain does not radiate. Associated signs and symptoms: The patient has no apparent associated signs or symptoms. The chest pain is described as sharp, stabbing. Duration: The patient or guardian reports multiple episodes, that wax and wane. Modifying factors: The symptoms are alleviated by remaining still, rest, the symptoms are aggravated by deep breath, movement, palpation of area. 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 - Social history:: Smoking status: Patient/guardian denies using tobacco. - Ebola Screening: : Patient denies travel to an Ebola-affected area in the 21 days before illness onset. - Family history:: not pertinent. ROS: 20:35 Constitutional: Negative for fever, chills, and weight loss, Eyes: Negative for injury, estela pain, redness, and discharge, ENT: Negative for injury, pain, and discharge, Neck: Negative for injury, pain, and swelling, Cardiovascular: Negative for chest pain, palpitations, and edema, Respiratory: Negative for shortness of breath, cough, wheezing, and pleuritic chest pain, Abdomen/GI: Negative for abdominal pain, nausea, vomiting, diarrhea, and constipation, Back: Negative for injury and pain, : Negative for injury, bleeding, discharge, and swelling, MS/Extremity: Negative for injury and deformity, Skin: Negative for injury, rash, and discoloration, Neuro: Negative for headache, weakness, numbness, tingling, and seizure, Psych: Negative for depression, anxiety, suicide ideation, homicidal ideation, and hallucinations, Allergy/Immunology: Negative for hives, rash, and allergies, Endocrine: Negative for neck swelling, polydipsia, polyuria, polyphagia, and marked weight changes, Hematologic/Lymphatic: Negative for swollen nodes, abnormal bleeding, and unusual bruising. Exam: 20:35 Constitutional: This is a well developed, well nourished patient who is awake, alert, estela and in no acute distress. Head/Face: Normocephalic, atraumatic. Eyes: Pupils equal round and reactive to light, extra-ocular motions intact. Lids and lashes normal. Conjunctiva and sclera are non-icteric and not injected. Cornea within normal limits. Periorbital areas with no swelling, redness, or edema. ENT: Nares patent. No nasal discharge, no septal abnormalities noted. Tympanic membranes are normal and external auditory canals are clear. Oropharynx with no redness, swelling, or masses, exudates, or evidence of obstruction, uvula midline. Mucous membranes moist. Neck: Trachea midline, no thyromegaly or masses palpated, and no cervical lymphadenopathy. Supple, full range of motion without nuchal rigidity, or vertebral point tenderness. No Meningismus. Cardiovascular: Regular rate and rhythm with a normal S1 and S2. No gallops, murmurs, or rubs. Normal PMI, no JVD. No pulse deficits. Respiratory: Lungs have equal breath sounds bilaterally, clear to auscultation and percussion. No rales, rhonchi or wheezes noted. No increased work of breathing, no retractions or nasal flaring. Abdomen/GI: Soft, non-tender, with normal bowel sounds. No distension or tympany. No guarding or rebound. No evidence of tenderness throughout. Back: No spinal tenderness. No costovertebral tenderness. Full range of motion. Skin: Warm, dry with normal turgor. Normal color with no rashes, no lesions, and no evidence of cellulitis. MS/ Extremity: Pulses equal, no cyanosis. Neurovascular intact. Full, normal range of motion. Neuro: Awake and alert, GCS 15, oriented to person, place, time, and situation. Cranial nerves II-XII grossly intact. Motor strength 5/5 in all extremities. Sensory grossly intact. Cerebellar exam normal. Normal gait. Psych: Awake, alert, with orientation to person, place and time. Behavior, mood, and affect are within normal limits. 20:35 Chest/axilla: Inspection: normal, Palpation: tenderness, that is mild, of the anterior aspect of left upper chest, Axilla: are normal, Breasts: are normal, Lymph nodes: lymphadenopathy is not appreciated. 20:37 Musculoskeletal/extremity: DVT Exam: no pain, no swelling, no tenderness, negative estela Homans' sign noted on exam, no appreciated bluish discoloration, no erythema, no increased warmth. Vital Signs: 20:24 BP 117 / 70; Pulse 77; Resp 18; Temp 97.4; Pulse Ox 99% on R/A; Weight 106.59 kg (R); aj1 Height 5 ft. 3 in. (160.02 cm) (R); Pain 8/10; 21:44 BP 110 / 72; Pulse 67; Resp 17 S; Pulse Ox 100% on R/A; Pain 7/10; jd3 22:24 BP 111 / 70; Pulse 71; Resp 18 S; Pulse Ox 99% on R/A; cc3 23:52 BP 106 / 73; Pulse 71; Resp 16 S; Pulse Ox 98% on R/A; jd3 20:24 Body Mass Index 41.63 (106.59 kg, 160.02 cm) aj1 MDM: 20:28 Patient medically screened. [facility] 20:37 Data reviewed: vital signs, nurses notes, lab test result(s), EKG, radiologic studies. [facility] 03/07 20:23 Order name: Basic Metabolic Panel; Complete Time: 21:30 [facility] 03/07 20:23 Order name: CBC with Diff; Complete Time: 21:30 [facility] 03/07 20:23 Order name: LFT's; Complete Time: 21:30 [facility] 03/07 20:23 Order name: Magnesium; Complete Time: 21:30 [facility] 03/07 20:23 Order name: NT PRO-BNP; Complete Time: 21:30 [facility] 03/07 20:23 Order name: PT-INR; Complete Time: 22:23 [facility] 03/07 20:23 Order name: Troponin (emerg Dept Use Only); Complete Time: 21:30 [facility] 03/07 20:23 Order name: XRAY Chest (1 view); Complete Time: 22:02 jd3 03/07 20:53 Order name: D-Dimer; Complete Time: 22:23 EDMS 03/07 20:55 Order name: Lipase; Complete Time: 21:30 EDGA 03/07 22:16 Order name: Urine Dipstick--Ancillary (enter results) [facility] 03/07 22:16 Order name: Urine --Ancillary (enter results) [facility] 03/07 20:23 Order name: EKG; Complete Time: 20:39 [facility] 03/07 20:23 Order name: Cardiac monitoring; Complete Time: 20:28 [facility] 03/07 20:23 Order name: EKG - Nurse/Tech; Complete Time: 20:44 [facility] 03/07 20:23 Order name: IV Saline Lock; Complete Time: 20:44 [facility] 03/07 20:23 Order name: Labs collected and sent; Complete Time: 20:44 [facility] 03/07 20:23 Order name: O2 Per Protocol; Complete Time: 20:27 [facility] 03/07 20:23 Order name: O2 Sat Monitoring; Complete Time: 20:28 [facility] 03/07 22:23 Order name: US Extremity Venous W Compression Jose [facility] 03/07 22:23 Order name: CT Chest For PE Angio [facility] 03/07 20:29 Order name: Urine Dipstick-Ancillary (obtain specimen); Complete Time: 22:16 [facility] 03/07 20:29 Order name: Urine Test (obtain specimen); Complete Time: 22:16 [facility] Administered Medications: 20:35 Drug: NS 0.9% 1000 ml Route: IV; Rate: 125 ml/hr; Site: right antecubital; cc3 23:55 Follow up: Response: No adverse reaction; IV Status: Order to discontinue infusion jd3 21:19 Drug: morphine 4 mg Route: IVP; Site: right antecubital; jd3 22:15 Follow up: Response: No adverse reaction jd3 21:19 Drug: Zofran 4 mg Route: IVP; Site: right antecubital; jd3 22:15 Follow up: Response: No adverse reaction jd3 21:44 Drug: Potassium Effervescent Tablet 25 mEq Route: PO; jd3 22:40 Follow up: Response: No adverse reaction jd3 23:36 CANCELLED (Physician Discretion): Mohall 10 mg-325 mg 1 tabs PO once jd3 23:36 Drug: [place]all (7.5 mg-325 mg) 1 tabs Route: PO; jd3 23:54 Follow up: Response: No adverse reaction jd3 23:48 Drug: Aspirin 81 mg Route: PO; jd3 23:54 Follow up: Response: No adverse reaction jd3 Disposition: 03/07/19 23:35 Discharged to Home. Impression: Chest pain, unspecified. - Condition is Stable. - Discharge Instructions: Nonspecific Chest Pain, Chest Wall Pain, Chest Wall Pain, Cxle-in-[id number], Nonspecific Chest Pain, Kqmf-kf-[id number], Aspirin and Your Heart. - Prescriptions for Ibuprofen 600 mg Oral Tablet - take 1 tablet by ORAL route every 8 hours As needed take with food; 21 tablet. Tylenol- Codeine #3 300-30 mg Oral Tablet - take 2 tablets by ORAL route every 6 hours As needed; 20 tablet. - Medication Reconciliation Form, Thank You Letter, Antibiotic Education, Prescription Opioid Use form. - Follow up: Private Physician; When: 2 - 3 days; Reason: Recheck today's complaints, Continuance of care, Re-evaluation by your physician. - Problem is new. - Symptoms have improved. Signatures: Dispatcher [employer] EDMS Elisabeth Rosales RN RN aj1 Omega Valadez MD MD cha Davies, Jonathon, RN RN jd3 Alysia Davalos cc3 Corrections: (The following items were deleted from the chart) 20:52 20:41 LIPASE+C.LAB.BRZ ordered. EDMS EDMS 20:52 20:41 D-DIMER+COAG.LAB.BRZ ordered. EDGA EDMS 23:36 23:36 Mohall 10 mg-325 mg 1 tabs PO once ordered. estela [facility] 23:56 23:35 03/07/2019 23:35 Discharged to Home. Impression: Chest pain, unspecified. jd3 Condition is Stable. Discharge Instructions: Nonspecific Chest Pain, Chest Wall Pain, Chest Wall Pain, Xejv-[id number], Nonspecific Chest Pain, Pjct-ea-Vwiw, Aspirin and Your Heart. Prescriptions for Ibuprofen 600 mg Oral Tablet - take 1 tablet by ORAL route every 8 hours As needed take with food; 21 tablet. and Forms are Medication Reconciliation Form, Thank You Letter, Antibiotic Education, Prescription Opioid Use. Follow up: Private Physician; When: 2 - 3 days; Reason: Recheck today's complaints, Continuance of care, Re-evaluation by your physician. Problem is new. Symptoms have improved. estela
[2019-03-07] MEDS ORDERED: HYDROCODONE/APAP 7.5/325 MG TAB ONE (23:48)
[2019-03-07] MEDS ORDERED: ASPIRIN 81 MG CHEWABLE TABLET ONE (23:53)
[2019-03-08 03:19] VITALS: TEMP 97.4
[2019-03-08 03:24] VITALS: BP 106/73; O2SAT 98
--- NOTE | 2019-03-08 07:55 | RAD REPORT ---
EXAM DESCRIPTION: US - Extrem Venous W Compress Jose - 03/07/2019 11:13 pm CLINICAL HISTORY: PAIN Bilateral leg edema and swelling. COMPARISON: <Comparisons> TECHNIQUE: Real-time sonographic interrogation of the left and right lower extremity deep venous sys tems was performed. FINDINGS: Normal compressibility, flow augmentation, phasic flow and spontaneous flow is identified in both the left and right lower extremity deep venous systems. IMPRESSION: No sonographic evidence of left or right lower extremity deep venous thrombosis.
--- NOTE | 2019-03-08 10:50 | EKG ---
Test Date: 2019-03-07 Test Time: 20:25:07 Public Area Supervisor: SHUBHAM MEASUREMENT RESULTS: Intervals: Rate: 74 IN: 138 QRSD: 90 QT: 368 QTc: 408 [place]: P: 19 IN: 138 QRS: 38 T: 18 INTERPRETIVE STATEMENTS: Normal sinus rhythm Normal ECG Compared to ECG 11/01/2018 21:55:27 Sinus arrhythmia no longer present Electronically Signed On 03-08-19 10:49:32 CDT by Joselito Hilton
--- NOTE | 2019-03-08 11:23 | RAD REPORT ---
EXAM DESCRIPTION: CT CHEST ANGIOGRAPHY WITH IV CONTRAST CLINICAL HISTORY: CHEST PAIN COMPARISON: None Available TECHNIQUE: Multiple helical axial tomographic images were obtained of the chest following administra tion of intravenous contrast per angiographic protocol. MIP reformatted images were obtained. This exam was performed according to our departmental dose-optimization program, which includes autom ated exposure control, adjustment of the mA and/or kV according to patient size and/or use of iterati ve reconstruction technique. FINDINGS: Thyroid gland: unremarkable. Axilla: unremarkable. Pulmonary arteries: Pulmonary arteries appear patent. No evidence of pulmonary embolism. Aorta: No evidence of aortic dissection or aneurysm. Mediastinum: Unremarkable. No adenopathy. Heart: Heart is normal in size. Lungs/airways: No consolidation. Airways are patent. Pleural spaces: No significant pleural effusion. No pneumothorax. Osseous: Unremarkable. Soft tissues: Unremarkable. Visualized abdomen: Cholecystectomy changes are present. IMPRESSION: No acute intrathoracic abnormality. Electronically signed by: Jose Bolanos MD 03/07/2019 11:00 PM CDT Due to temporary technical issues with the PACS/Fluency reporting system, reports are being signed by the in house radiologist as a courtesy to ensure prompt reporting. The interpreting radiologist is f ully responsible for the content of the report.
== END 2019-03-07 23:56 | disposition home or self-care (01) ==
LOC: ER 20:14
DX: R07.9 Chest pain, unspecified (principal)
CPT/HCPCS: 36415; 71045; 71275; 80048; 80076; 81003; 81025; 83690; 83735; 83880; 84484; 85025; 85379; 85610; 93005; 93970; 96361; 96374; 96375; 99285; J2405; J7030; Q9967

== ENCOUNTER 2019-06-28 21:36 | Emergency (ER) | payer OTHER ==
[2019-06-28] MEDS ORDERED: ACETAMINOPHEN 500 MG TAB ONE (22:22)
[2019-06-28 23:13] LABS: Absolute Lymphocytes (CBC) 1.6 K/uL (0.7-4.9); Basophils % 0.3 % (0-1.3); Hematocrit 36.4 % (36.0-45.0); Lymphocytes % 20.9 % (15.3-44.8); MPV 10.8 fL (7.6-11.3); Protime INR 1.01; RBC Red Blood Cell Count 4.26 M/uL (3.86-4.86)
[2019-06-28 23:34] LABS: ALT/SGPT 20 U/L (12-78); AST/SGOT 15 U/L (15-37); Albumin 3.8 g/dL (3.4-5.0); Alkaline Phosphatase 75 U/L (45-117); BUN Blood Urea Nitrogen 7 mg/dL (7-18); Bicarbonate 25 mmol/L (21-32); Bilirubin Direct 0.1 mg/dL (0-0.2); Bilirubin Total 0.4 mg/dL (0.2-1.0); Glucose Level 96 mg/dL (74-106); Magnesium 2.1 mg/dL (1.8-2.4); Potassium 3.8 mmol/L (3.5-5.1); Protein, Total 7.1 g/dL (6.4-8.2); Sodium Level 141 mmol/L (136-145); Troponin (Emerg Dept Use Only) < 0.02 ng/mL (0.0-0.045)
--- NOTE | 2019-06-29 00:02 | RAD REPORT ---
EXAM DESCRIPTION: RAD - Chest Single View - 06/28/2019 10:37 pm CLINICAL HISTORY: CHEST PAIN Chest pain. COMPARISON: Chest Single View dated 03/07/2019; Chest Single View dated 11/01/2018; CHEST PA AND LAT 2 VIEW dated 07/31/2015; CHEST PA AND LAT 2 VIEW dated 08/13/2014 FINDINGS: Portable technique limits examination quality. The lungs are grossly clear. The heart is normal in size. No displaced fractures. IMPRESSION: No acute intrathoracic process suspected.
[2019-06-29 00:18] LABS: Urine Blood NEGATIVE (NEG); Urine Glucose NEGATIVE (NEG); Urine Protein NEGATIVE (NEG); Urine pH 7.5 (5.0-7.0)
[2019-06-29] MEDS ORDERED: dexAMETHasone 10 MG/ML VIAL ONE (00:41)
[2019-06-29] MEDS ORDERED: METOCLOPRAMIDE 10 MG/2mL INJ ONE (00:42)
[2019-06-29] MEDS ORDERED: DIPHENHYDRAMINE 50 MG/ML VIAL ONE (00:42)
[2019-06-29] MEDS ORDERED: NA CHLORIDE 0.9% 1,000 ML ONE (00:42)
[2019-06-29] MEDS ORDERED: KETOROLAC 30 MG/ML INJ ONE (00:42)
--- NOTE | 2019-06-29 01:33 | ER ---
Nurse's Notes [facility] Name: Suzy Hammer Age: 33 yrs Sex: Female : 1985 Arrival Date: 06/28/2019 Time: 21:39 Bed 20 Private MD: Diagnosis: Headache;Other chest pain Presentation: 06/28 21:41 Presenting complaint: Patient states: randa been having severe headache for 2 days, mg2 [id number] today, now my chest feels heavy. Transition of care: patient was not received from another setting of care. Onset of symptoms was June 27, 2019. Risk Assessment: Do you want to hurt yourself or someone else? Patient reports no desire to harm self or others. Initial Sepsis Screen: Does the patient meet any 2 criteria? No. Patient's initial sepsis screen is negative. Does the patient have a suspected source of infection? No. Patient's initial sepsis screen is negative. Care prior to arrival: None. 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 - Social history:: Smoking status: Patient uses tobacco products, denies chronic smoking, but will smoke occasionally, Patient/guardian denies using alcohol, street drugs, IV drugs. - Ebola Screening: : No symptoms or risks identified at this time. Screenin:45 Abuse screen: Denies threats or abuse. Denies injuries from another. Nutritional mg2 screening: No deficits noted. Tuberculosis screening: No symptoms or risk factors identified. 21:47 Fall Risk Ambulatory Aid- None/Bed Rest/Nurse Assist (0 pts). Gait- Normal/Bed cc3 Rest/Wheelchair (0 pts) Mental Status- Oriented to own ability (0 pts). Assessment: 21:47 General: Appears in no apparent distress. uncomfortable, Behavior is calm, cooperative, cc3 appropriate for age. Pain: Complains of pain in head, chest Pain does not radiate. Quality of pain is described as aching, Pain began 1 day ago. Neuro: Level of Consciousness is awake, alert, obeys commands, Oriented to person, place, time, situation, Appropriate for age. Cardiovascular: Reports chest pain, Denies diaphoresis, fatigue, lightheadedness, nausea, palpitations, shortness of breath, syncope, vomiting, Heart tones S1 S2 present Capillary refill < 3 seconds in bilateral fingers Patient's skin is warm and dry. Respiratory: Airway is patent Respiratory effort is even, unlabored, Respiratory pattern is regular, symmetrical. GI: Abdomen is round non-distended, Bowel sounds present X 4 quads. : No signs and/or symptoms were reported regarding the genitourinary system. EENT: No signs and/or symptoms were reported regarding the EENT system. Derm: Skin is intact, is healthy with good turgor, Skin is pink, warm \T\ dry. normal. Musculoskeletal: Circulation, motion, and sensation intact. Range of motion: intact in all extremities. 22:25 Reassessment: Patient appears in no apparent distress at this time. Patient and/or cc3 family updated on plan of care and expected duration. Pain level reassessed. Patient is alert, oriented x 3, equal unlabored respirations, skin warm/dry/pink. 23:38 Reassessment: Patient appears in no apparent distress at this time. Patient and/or cc3 family updated on plan of care and expected duration. Pain level reassessed. Patient is alert, oriented x 3, equal unlabored respirations, skin warm/dry/pink. 06/29 00:00 Reassessment: Patient appears in no apparent distress at this time. Patient and/or cc3 family updated on plan of care and expected duration. Pain level reassessed. Patient is alert, oriented x 3, equal unlabored respirations, skin warm/dry/pink. Patient still having headache, PA Page informed. 01:45 Reassessment: Patient appears in no apparent distress at this time. Patient and/or cc3 family updated on plan of care and expected duration. Pain level reassessed. Patient is alert, oriented x 3, equal unlabored respirations, skin warm/dry/pink. PA Page discharged the patient home with prescriptions given. IV cannula removed and patient left ER vitally stable and ambulatory. No valuables left in the patient's room. Patient states feeling better. Patient states symptoms have improved. Vital Signs: 06/28 21:43 BP 108 / 65; Pulse 68; Resp 18; Temp 97.8; Pulse Ox 100% on R/A; Weight 107.05 kg; mg2 Height 5 ft. 3 in. (160.02 cm); Pain 8/10; 23:39 BP 102 / 64; Pulse 65; Resp 20 S; Pulse Ox 99% on R/A; cc3 06/29 00:30 BP 105 / 56; Pulse 64; Resp 18 S; Pulse Ox 98% on R/A; cc3 01:30 BP 103 / 82; Pulse 71; Resp 16 S; Pulse Ox 100% on R/A; Pain 2/10; cc3 06/28 21:43 Body Mass Index 41.81 (107.05 kg, 160.02 cm) mg2 ED Course: 06/28 21:39 Patient arrived in ED. cf2 21:43 Triage completed. mg2 21:44 Arm band placed on. mg2 21:46 Omega James PA is PHCP. cp 21:46 Moses Reyes MD is Attending Physician. cp 21:47 Alysia Davalos is Primary Nurse. cc3 21:47 Patient has correct armband on for positive identification. Placed in gown. Bed in low cc3 position. Call light in reach. Side rails up X 1. quality assurance monitor chassis on. Pulse ox on. NIBP on. 21:47 Patient maintains SpO2 saturation greater than 95% on room air. cc3 21:54 EKG done, by ED staff, reviewed by Omega BARRAZA. em1 22:20 Missed attempt(s): 20 gauge in right antecubital area. Bleeding controlled, band aid cc3 applied, catheter tip intact. 22:37 XRAY Chest (1 view) In Process Unspecified. EDMS 22:39 CT completed. Patient tolerated procedure well. Patient moved to CT via wheelchair. nj Patient moved back from CT. 22:44 CT Head Brain wo Cont In Process Unspecified. EDMS 22:58 Initial lab(s) drawn, by me, sent to lab. Inserted saline lock: 22 gauge in left em1 forearm, using aseptic technique. Blood collected. 06/29 01:45 No provider procedures requiring assistance completed. IV discontinued, intact, cc3 bleeding controlled, No redness/swelling at site. Pressure dressing applied. Administered Medications: 06/28 22:20 Drug: Tylenol 1000 mg Route: PO; cc3 06/29 00:00 Follow up: Response: No adverse reaction; Pain is unchanged, physician notified cc3 00:40 Drug: NS 0.9% 1000 ml Route: IV; Rate: 1 bolus; Site: left forearm; cc3 01:45 Follow up: Response: No adverse reaction; IV Status: Completed infusion; IV Intake: cc3 1000ml 00:40 Drug: TORadol - Ketorolac 15 mg Route: IVP; Site: left forearm; cc3 01:30 Follow up: Response: No adverse reaction; Pain is decreased cc3 00:45 Drug: Reglan 10 mg Route: IVP; Site: left forearm; cc3 01:30 Follow up: Response: No adverse reaction; Marked relief of symptoms; Pain is decreased; cc3 Nausea is decreased 00:50 Drug: Benadryl 25 mg Route: IVP; Site: left forearm; cc3 01:30 Follow up: Response: No adverse reaction; Marked relief of symptoms cc3 00:55 Drug: Decadron - Dexamethasone 10 mg Route: IVP; Site: left forearm; cc3 01:30 Follow up: Response: No adverse reaction; Marked relief of symptoms; Pain is decreased cc3 Intake: 01:45 IV: 1000ml; Total: 1000ml. cc3 Outcome: 01:33 Discharge ordered by . cp 01:45 Discharged to home ambulatory. cc3 01:45 Condition: stable 01:45 Discharge instructions given to patient, Instructed on discharge instructions, follow up and referral plans. medication usage, Demonstrated understanding of instructions, follow-up care, medications, Prescriptions given X 2. 01:48 Patient left the ED. cc3 Signatures: Dispatcher [employer] Isak Magallon em1 Omega James PA PA cp Jordan, Nathan nj Gardose, Michele, RN RN mg2 Cordel, Charlene cc3 Johnny Kirby2
--- NOTE | 2019-06-29 01:34 | EDPHYS ---
Physician Documentation [facility] Name: Suzy Hammer Age: 33 yrs Sex: Female : 1985 Arrival Date: 06/28/2019 Time: 21:39 Bed 20 Private MD: ED Physician Moses Reyes HPI: 06/28 22:20 This 33 yrs old Female presents to ER via Ambulatory with complaints of Chest cp Pain, Shortness Of Breath, Chest Tightness. 22:20 The patient complains of pain to the top of head and forehead. cp 22:20 The patient describes the headache as aching. Onset: The symptoms/episode cp began/occurred 2 day(s) ago, and became worse today. Associated signs and symptoms: Pertinent positives: nausea, vomiting, chest pain. Severity of symptoms: in the emergency department the pain a " 8" out of "10". 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 - Social history:: Smoking status: Patient uses tobacco products, denies chronic smoking, but will smoke occasionally, Patient/guardian denies using alcohol, street drugs, IV drugs. - Ebola Screening: : No symptoms or risks identified at this time. ROS: 22:30 Constitutional: Negative for body aches, chills, fever, poor PO intake. cp 22:30 Eyes: Negative for injury, pain, redness, and discharge. cp 22:30 ENT: Negative for drainage from ear(s), ear pain, sore throat, difficulty swallowing, difficulty handling secretions. 22:30 Cardiovascular: Positive for chest pain, Negative for edema, palpitations. 22:30 Respiratory: Positive for shortness of breath, Negative for cough, wheezing. 22:30 Abdomen/GI: Negative for abdominal pain, vomiting, diarrhea, constipation, black/tarry stool, rectal bleeding. 22:30 : Negative for urinary symptoms. 22:30 Skin: Negative for cellulitis, rash. 22:30 Neuro: Positive for headache, Negative for altered mental status, dizziness, syncope, weakness. 22:30 All other systems are negative. Exam: 22:05 ECG was reviewed by the Attending Physician. cp 22:35 Constitutional: The patient appears in no acute distress, alert, awake, cp non-diaphoretic, non-toxic, well developed, well nourished. 22:35 Head/Face: Normocephalic, atraumatic. cp 22:35 Eyes: Pupils equal round and reactive to light, extra-ocular motions intact. Lids and lashes normal. Conjunctiva and sclera are non-icteric and not injected. Cornea within normal limits. Periorbital areas with no swelling, redness, or edema. ENT: Nares patent. No nasal discharge, no septal abnormalities noted. Tympanic membranes are normal and external auditory canals are clear. Oropharynx with no redness, swelling, or masses, exudates, or evidence of obstruction, uvula midline. Mucous membranes moist. Chest/axilla: Normal chest wall appearance and motion. Nontender with no deformity. No lesions are appreciated. 22:35 Cardiovascular: Rate: normal, Rhythm: regular, Heart sounds: murmur, not appreciated, Edema: is not appreciated, JVD: is not appreciated. 22:35 Respiratory: the patient does not display signs of respiratory distress, Respirations: normal, no use of accessory muscles, no retractions, no splinting, no tachypnea, labored breathing, is not present, Breath sounds: are clear throughout, no decreased breath sounds, no stridor, no wheezing. 22:35 Abdomen/GI: Inspection: abdomen appears normal, Bowel sounds: active, all quadrants, Palpation: abdomen is soft and non-tender, in all quadrants, rebound tenderness, is not appreciated, voluntary guarding, is not appreciated, involuntary guarding, is not appreciated. 22:35 Back: pain, is absent, ROM is normal. 22:35 Skin: no rash present. 22:35 Neuro: Orientation: to person, place \\T\\ time. Mentation: is normal, Cerebellar function: is grossly normal, Motor: moves all fours, strength is normal, Sensation: is normal. Vital Signs: 21:43 BP 108 / 65; Pulse 68; Resp 18; Temp 97.8; Pulse Ox 100% on R/A; Weight 107.05 kg; mg2 Height 5 ft. 3 in. (160.02 cm); Pain 8/10; 23:39 BP 102 / 64; Pulse 65; Resp 20 S; Pulse Ox 99% on R/A; cc3 06/29 00:30 BP 105 / 56; Pulse 64; Resp 18 S; Pulse Ox 98% on R/A; cc3 01:30 BP 103 / 82; Pulse 71; Resp 16 S; Pulse Ox 100% on R/A; Pain 2/10; cc3 06/28 21:43 Body Mass Index 41.81 (107.05 kg, 160.02 cm) mg2 MDM: 06/28 22:03 Patient medically screened. cp 06/29 01:32 Data reviewed: vital signs, nurses notes, lab test result(s), EKG, radiologic studies, cp CT scan, plain films. 01:32 Test interpretation: by ED physician or midlevel provider: ECG, plain radiologic cp studies. Counseling: I had a detailed discussion with the patient and/or guardian regarding: the historical points, exam findings, and any diagnostic results supporting the discharge/admit diagnosis, lab results, radiology results, to return to the emergency department if symptoms worsen or persist or if there are any questions or concerns that arise at home. Response to treatment: the patient's symptoms have markedly improved after treatment, and as a result, I will discharge patient. ED course: VSS. Pain markedly improved. Will discharge to home for continued monitoring. 06/28 22:16 Order name: Basic Metabolic Panel; Complete Time: 00:27 cp 06/29 00:27 Interpretation: Normal except: GFR 86. cp 06/28 22:16 Order name: CBC with Diff; Complete Time: 00:27 cp 06/28 22:16 Order name: LFT's; Complete Time: 00:27 cp 06/28 22:16 Order name: Magnesium; Complete Time: 00:27 cp 06/28 22:16 Order name: PT-INR; Complete Time: 00:27 cp 06/28 22:16 Order name: Troponin (emerg Dept Use Only); Complete Time: 00:27 cp 06/28 22:16 Order name: XRAY Chest (1 view); Complete Time: 00:27 cp 06/28 22:16 Order name: CT Head Brain wo Cont cp 06/28 23:11 Order name: Urine Dipstick--Ancillary (enter results); Complete Time: 00:27 mw2 06/29 00:28 Interpretation: Normal except: UPH 7.5; UESTR 1+. cp 06/28 23:11 Order name: Urine --Ancillary (enter results); Complete Time: 00:27 mw2 06/28 22:16 Order name: Urine Dipstick-Ancillary (obtain specimen); Complete Time: 23:10 cp 06/28 22:16 Order name: Urine Test (obtain specimen); Complete Time: 23:10 cp 06/28 22:16 Order name: EKG; Complete Time: 22:16 cp 06/28 22:16 Order name: Cardiac monitoring; Complete Time: 22:19 cp 06/28 22:16 Order name: EKG - Nurse/Tech; Complete Time: 22:19 cp 06/28 22:16 Order name: IV Saline Lock; Complete Time: 22:58 cp 06/28 22:16 Order name: Labs collected and sent; Complete Time: 22:58 cp 06/28 22:16 Order name: O2 Per Protocol; Complete Time: 22:20 cp 06/28 22:16 Order name: O2 Sat Monitoring; Complete Time: 22:20 cp EC/11 22:05 Rate is 66 beats/min. Rhythm is regular. VA interval is normal. QRS interval is normal. cp QT interval is normal. Interpreted by me. Reviewed by me. Administered Medications: 22:20 Drug: Tylenol 1000 mg Route: PO; cc3 06/29 00:00 Follow up: Response: No adverse reaction; Pain is unchanged, physician notified cc3 00:40 Drug: NS 0.9% 1000 ml Route: IV; Rate: 1 bolus; Site: left forearm; cc3 01:45 Follow up: Response: No adverse reaction; IV Status: Completed infusion; IV Intake: cc3 1000ml 00:40 Drug: TORadol - Ketorolac 15 mg Route: IVP; Site: left forearm; cc3 01:30 Follow up: Response: No adverse reaction; Pain is decreased cc3 00:45 Drug: Reglan 10 mg Route: IVP; Site: left forearm; cc3 01:30 Follow up: Response: No adverse reaction; Marked relief of symptoms; Pain is decreased; cc3 Nausea is decreased 00:50 Drug: Benadryl 25 mg Route: IVP; Site: left forearm; cc3 01:30 Follow up: Response: No adverse reaction; Marked relief of symptoms cc3 00:55 Drug: Decadron - Dexamethasone 10 mg Route: IVP; Site: left forearm; cc3 01:30 Follow up: Response: No adverse reaction; Marked relief of symptoms; Pain is decreased cc3 Disposition: 03:12 Co-signature as Attending Physician, Moses Reyes MD. rn Disposition: 06/29/19 01:33 Discharged to Home. Impression: Headache, Other chest pain. - Condition is Stable. - Discharge Instructions: Nonspecific Chest Pain, General Headache Without Cause. - Prescriptions for Ibuprofen 800 mg Oral Tablet - take 1 tablet by ORAL route every 8 hours As needed take with food; 30 tablet. Zofran 4 mg Oral Tablet - take 1 tablet by ORAL route every 12 hours As needed; 20 tablet. - Medication Reconciliation Form, Thank You Letter, Antibiotic Education, Prescription Opioid Use form. - Follow up: Private Physician; When: 2 - 3 days; Reason: Recheck today's complaints. - Problem is new. - Symptoms have improved. Signatures: Dispatcher [employer] EDAR Moses Reyes MD MD rn Omega James PA PA cp [place], Michele, RN RN Alysia Saba cc3 Corrections: (The following items were deleted from the chart) 01:48 01:33 06/29/2019 01:33 Discharged to Home. Impression: Headache; Other chest pain. cc3 Condition is Stable. Forms are Medication Reconciliation Form, Thank You Letter, Antibiotic Education, Prescription Opioid Use. Follow up: Private Physician; When: 2 - 3 days; Reason: Recheck today's complaints. Problem is new. Symptoms have improved. cp
[2019-06-29 01:53] VITALS: TEMP 97.8
[2019-06-29 01:55] VITALS: BP 105/56; O2SAT 98
--- NOTE | 2019-06-30 13:06 | EKG ---
Test Date: 2019-06-28 Test Time: 21:51:05 Helper/Driver: JULIO MEASUREMENT RESULTS: Intervals: Rate: 66 MO: 138 QRSD: 84 QT: 416 QTc: 436 [place]: P: 40 MO: 138 QRS: 55 T: 39 INTERPRETIVE STATEMENTS: Normal sinus rhythm Normal ECG Compared to ECG 03/07/2019 20:25:07 No significant changes Electronically Signed On 06-30-19 13:03:50 CDT by Roscoe Cummings
--- NOTE | 2019-07-01 12:10 | RAD REPORT ---
EXAM DESCRIPTION: Head Brain Wo Cont CLINICAL HISTORY: 33 years Female, HEADACHE TECHNIQUE: 5 mm axial images were obtained along with 3 mm reformatted coronal and sagittal images. This exam was performed according to our departmental dose-optimization program, which includes autom ated exposure control, adjustment of the mA and/or kV according to patient size and/or use of iterati ve reconstruction technique. COMPARISON: None. FINDINGS: No acute abnormal extracerebral fluid collections are demonstrated. The cortical sulci, ventricles, and cisterns are within normal limits. There are no areas of altered attenuation identified to suggest acute hemorrhage, infarction, or mass lesion. The visualized portions of the paranasal sinuses and mastoid air cells are clear. IMPRESSION: 1. Normal study. Electronically signed by: Jasiel Mckeon MD 06/28/2019 10:55 PM CDT Due to temporary technical issues with the PACS/Fluency reporting system, reports are being signed by the in house radiologist as a courtesy to ensure prompt reporting. The interpreting radiologist is f ully responsible for the content of the report.
== END 2019-06-29 01:48 | disposition home or self-care (01) ==
LOC: ER 21:36
DX: R07.89 Other chest pain (principal); Z72.0 Tobacco use
CPT/HCPCS: 96361; 93005; 85025; 80048; 36415; 83735; 81025; 85610; 80076; 81003; 84484; 70450; 71045; 96375; 96374; 99285; J2765; J1200; J1100; J7030

== ENCOUNTER 2019-08-13 17:58 | Emergency (ER) | payer OTHER ==
--- OUTSIDE RECORDS SUMMARY | 2019-08-13 18:00 | XMS REPORT ---
:1985 [facility] Address [address] [place] [address] Dr. Grigsby [address] [place] [id number] Care Team Providers Name Role Phone Unavailable Unavailable Unavailable Problems This patient has no known problems. Allergies, Adverse Reactions, Alerts This patient has no known allergies or adverse reactions. Medications This patient has no known medications.
[2019-08-13] MEDS ORDERED: IPRATROPIUM BROM 0.5MG/2.5ML ONE (18:24)
[2019-08-13] MEDS ORDERED: ALBUTEROL 2.5 MG/3 ML NEB SOL ONE (18:24)
--- NOTE | 2019-08-13 19:44 | EDPHYS ---
Physician Documentation [facility] Name: Suzy Hammer Age: 33 yrs Sex: Female : 1985 Arrival Date: 08/13/2019 Time: 18:02 Bed 7 Private MD: ED Physician Omega Valadez HPI: 08/13 18:46 This 33 yrs old Female presents to ER via Ambulatory with complaints of Cough, snw Sore Throat. 18:46 The patient or guardian reports cough, described as moderate, with no sputum. Onset: snw The symptoms/episode began/occurred gradually, 1.5 week(s) ago, and became persistent. Severity of symptoms: At their worst the symptoms were moderate, severe. Modifying factors: The symptoms are alleviated by nothing. It is unknown whether or not the patient has had similar symptoms in the past. It is unknown whether or not the patient has recently seen a physician. 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 - Social history:: Smoking status: Patient uses tobacco products, denies chronic smoking, but will smoke occasionally. - Ebola Screening: : No symptoms or risks identified at this time. ROS: 18:34 Eyes: Negative for injury, pain, redness, and discharge. snw 18:34 Neck: Negative for injury, pain, and swelling, Cardiovascular: Negative for chest pain, palpitations, and edema, Abdomen/GI: Negative for abdominal pain, vomiting, diarrhea, and constipation, +nausea Back: Negative for injury and pain, : Negative for injury, bleeding, discharge, and swelling, MS/Extremity: Negative for injury and deformity, Skin: Negative for injury, rash, and discoloration, Neuro: Negative for headache, weakness, numbness, tingling, and seizure. 18:34 Constitutional: Positive for body aches, fever, malaise. 18:34 ENT: Positive for ear pain, sore throat. 18:34 Respiratory: Positive for cough, wheezing. Exam: 18:25 Head/Face: Normocephalic, atraumatic. Eyes: Pupils equal round and reactive to light, snw extra-ocular motions intact. Lids and lashes normal. Conjunctiva and sclera are non-icteric and not injected. Cornea within normal limits. Periorbital areas with no swelling, redness, or edema. 18:25 Neck: Trachea midline, no thyromegaly or masses palpated, and no cervical lymphadenopathy. Supple, full range of motion without nuchal rigidity, or vertebral point tenderness. No Meningismus. Chest/axilla: Normal chest wall appearance and motion. Nontender with no deformity. No lesions are appreciated. Cardiovascular: Regular rate and rhythm with a normal S1 and S2. No gallops, murmurs, or rubs. Normal PMI, no JVD. No pulse deficits. Abdomen/GI: Soft, non-tender, with normal bowel sounds. No distension or tympany. No guarding or rebound. No evidence of tenderness throughout. Back: No spinal tenderness. No costovertebral tenderness. Full range of motion. Skin: Warm, dry with normal turgor. Normal color with no rashes, no lesions, and no evidence of cellulitis. MS/ Extremity: Pulses equal, no cyanosis. Neurovascular intact. Full, normal range of motion. Neuro: Awake and alert, GCS 15, oriented to person, place, time, and situation. Cranial nerves II-XII grossly intact. Motor strength 5/5 in all extremities. Sensory grossly intact. Cerebellar exam normal. Normal gait. Psych: Awake, alert, with orientation to person, place and time. Behavior, mood, and affect are within normal limits. 18:25 Constitutional: The patient appears alert, awake, uncomfortable. 18:25 ENT: TM's: fluid levels, on the left, Nose: no acute changes, Mouth: no acute changes, Posterior pharynx: erythema, that is mild, Voice: is normal. 18:25 Respiratory: the patient does not display signs of respiratory distress, Respirations: normal, Breath sounds: wheezing: expiratory that is moderate, is heard diffusely. Vital Signs: 18:06 BP 104 / 76; Pulse 96; Resp 16; Temp 98.4; Pulse Ox 100% on R/A; Weight 105.23 kg; la1 Height 5 ft. 3 in. (160.02 cm); 19:39 BP 150 / 76; Pulse 116; Resp 20; Pulse Ox 100% on R/A; ak1 18:06 Body Mass Index 41.10 (105.23 kg, 160.02 cm) la1 MDM: 18:18 Patient medically screened. snw 18:47 Data reviewed: vital signs, nurses notes. Data interpreted: Pulse oximetry: on room air snw is 100 %. Interpretation: normal. Counseling: I had a detailed discussion with the patient and/or guardian regarding: the historical points, exam findings, and any diagnostic results supporting the discharge/admit diagnosis, lab results, the need for outpatient follow up, to return to the emergency department if symptoms worsen or persist or if there are any questions or concerns that arise at home. 08/13 18:17 Order name: Strep; Complete Time: 19:01 snw 08/13 18:17 Order name: Flu; Complete Time: 19:01 snw 08/13 19:01 Order name: Throat Culture EDMS 08/13 19:02 Order name: Chest Pa And Lat (2 Views) XRAY snw Administered Medications: 18:33 Drug: Albuterol - atroVENT (3:1) (2.5 mg - 0.5 mg) 3 ml Route: Nebulizer; jl7 19:05 Follow up: Response: No adverse reaction ak1 Disposition: 08/14 06:38 Co-signature as Attending Physician, Omega Valadez MD I agree with the assessment and estela plan of care. Disposition: 08/13/19 19:43 Discharged to Home. Impression: Acute bronchitis. - Condition is Stable. - Discharge Instructions: Acute Bronchitis, Adult, Fever, Adult, Rehydration, Adult. - Prescriptions for Zyrtec 10 mg Oral Tablet - take 1 tablet by ORAL route once daily As needed; 20 tablet. Prednisone 20 mg Oral Tablet - take 2 tablet by ORAL route once daily for 5 days; 10 tablet. Albuterol Sulfate 90 mcg/actuation - inhale 1-2 puff by INHALATION route every 4-6 hours; 1 Inhaler. Pepcid 20 mg Oral Tablet - take 1 tablet by ORAL route once daily for 10 days; 10 tablet. Tessalon Perles 100 mg Oral Capsule - take 1 capsule by ORAL route every 8 hours As needed; 15 capsule. - Work release form, Medication Reconciliation Form, Thank You Letter, Antibiotic Education, Prescription Opioid Use form. - Follow up: Private Physician; When: 2 - 3 days; Reason: Recheck today's complaints, Continuance of care, Re-evaluation by your physician. Follow up: Emergency Department; When: As needed; Reason: Worsening of condition. Signatures: Dispatcher [employer] EDOmega Fisher MD MD cha Therrien, Shelly, BAKERY SUPERVISOR-C BAKERY SUPERVISOR-Grayw Justice Ely, RN RN la1 Vianney Figueroa RN RN ak1 Roby Ruiz RN RN jl7 Corrections: (The following items were deleted from the chart) 08/13 19:53 19:43 08/13/2019 19:43 Discharged to Home. Impression: Acute bronchitis. Condition is ak1 Stable. Forms are Medication Reconciliation Form, Thank You Letter, Antibiotic Education, Prescription Opioid Use. Follow up: Private Physician; When: 2 - 3 days; Reason: Recheck today's complaints, Continuance of care, Re-evaluation by your physician. Follow up: Emergency Department; When: As needed; Reason: Worsening of condition. snw
--- NOTE | 2019-08-13 19:44 | ER ---
Nurse's Notes [facility] Name: Suzy Hammer Age: 33 yrs Sex: Female : 1985 Arrival Date: 08/13/2019 Time: 18:02 Bed 7 Private MD: Diagnosis: Acute bronchitis Presentation: 08/13 18:06 Presenting complaint: Patient states: cough, congestion, sore throat for one week. la1 Transition of care: patient was not received from another setting of care. Onset of symptoms was August 13, 2019. Risk Assessment: Do you want to hurt yourself or someone else? Patient reports no desire to harm self or others. Initial Sepsis Screen: Does the patient meet any 2 criteria? No. Patient's initial sepsis screen is negative. Does the patient have a suspected source of infection? No. Patient's initial sepsis screen is negative. Care prior to arrival: None. 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 - Social history:: Smoking status: Patient uses tobacco products, denies chronic smoking, but will smoke occasionally. - Ebola Screening: : No symptoms or risks identified at this time. Screenin:17 Abuse screen: Denies threats or abuse. Denies injuries from another. Nutritional jl7 screening: No deficits noted. Tuberculosis screening: No symptoms or risk factors identified. Fall Risk None identified. Assessment: 18:17 General: Appears in no apparent distress. uncomfortable, Behavior is calm, cooperative, jl7 appropriate for age. Pain: Complains of pain in sore throat Pain currently is 8 out of 10 on a pain scale. Neuro: Level of Consciousness is awake, alert, obeys commands, Oriented to person, place, time, situation. Cardiovascular: Patient's skin is warm and dry. Respiratory: Airway is patent Respiratory effort is even, unlabored, Respiratory pattern is regular, symmetrical, Breath sounds are coarse Breath sounds with wheezes bilaterally. EENT: Throat is clear is reddened Reports pain in left ear. Derm: Skin is pink, warm \T\ dry. Vital Signs: 18:06 BP 104 / 76; Pulse 96; Resp 16; Temp 98.4; Pulse Ox 100% on R/A; Weight 105.23 kg; la1 Height 5 ft. 3 in. (160.02 cm); 19:39 BP 150 / 76; Pulse 116; Resp 20; Pulse Ox 100% on R/A; ak1 18:06 Body Mass Index 41.10 (105.23 kg, 160.02 cm) la1 ED Course: 18:02 Patient arrived in ED. mr 18:06 Arm band placed on left wrist. la1 18:07 Triage completed. la1 18:07 Roby Ruiz, RN is Primary Nurse. jl7 18:16 Sakina Rizo FNP-C is [facility]. snw 18:16 Omega Valadez MD is Attending Physician. snw 18:17 Patient has correct armband on for positive identification. Bed in low position. Call jl7 light in reach. Side rails up X 1. Pulse ox on. NIBP on. Warm blanket given. 18:33 Flu and/or RSV swab sent to lab. Strep swab sent to lab. jl7 19:20 Chest Pa And Lat (2 Views) XRAY In Process Unspecified. EDMS 19:44 No provider procedures requiring assistance completed. Patient did not have IV access ak1 during this emergency room visit. Administered Medications: 18:33 Drug: Albuterol - atroVENT (3:1) (2.5 mg - 0.5 mg) 3 ml Route: Nebulizer; jl7 19:05 Follow up: Response: No adverse reaction ak1 Outcome: 19:43 Discharge ordered by . snw 19:44 Condition: stable ak1 19:51 Discharged to home ambulatory, with family. ak1 19:51 Discharge instructions given to patient, Instructed on discharge instructions, follow up and referral plans. no drinking with medication, no driving heavy equipment, medication usage, safe sex practices, Demonstrated understanding of instructions, follow-up care, medications, Prescriptions given X 5 19:53 Patient left the ED. ak1 Signatures: Dispatcher [employer] EDMS Sakina Rizo FNP-C ENGINEERING DOCUMENTATION SPECIALIST-Csnw Argelia Whaley Justice Ely RN RN la1 Vianney Figueroa RN RN ak1 Ruiz, Jahala, RN RN jl7
--- NOTE | 2019-08-13 19:54 | RAD REPORT ---
EXAM DESCRIPTION: RAD - Chest Pa And Lat (2 Views) - 08/13/2019 7:21 pm CLINICAL HISTORY: Cough;Fever COMPARISON: June 28, 2019 TECHNIQUE: PA and lateral views of the chest were obtained. FINDINGS: The lungs are clear. Heart size is normal and central vasculature is within normal limit s. No pleural effusion or pneumothorax seen. No acute bony finding noted. No aortic abnormality. IMPRESSION: No acute cardiopulmonary process. No significant interval change.
[2019-08-13 20:19] VITALS: TEMP 98.4; O2SAT 100
[2019-08-13 20:21] VITALS: BP 150/76
== END 2019-08-13 19:53 | disposition home or self-care (01) ==
LOC: ER 17:58
DX: J20.9 Acute bronchitis, unspecified (principal); Z72.0 Tobacco use
CPT/HCPCS: 71046; 87070; 87081; 87804; 94640; 99284

== ENCOUNTER 2019-10-29 18:05 | Emergency (ER) | payer OTHER ==
--- OUTSIDE RECORDS SUMMARY | 2019-10-29 18:08 | XMS REPORT ---
:1985 [facility] Address [address] [place] [address] Dr. Grigsby [address] [place] [id number] Care Team Providers Name Role Phone Unavailable Unavailable Unavailable Problems This patient has no known problems. Allergies, Adverse Reactions, Alerts This patient has no known allergies or adverse reactions. Medications This patient has no known medications.
--- OUTSIDE RECORDS SUMMARY | 2019-10-29 18:09 | XMS REPORT | Summary of Care ---
:1985 Author Organization [facility] - Health Address [address] [place] [id number] Care Team Providers Name Role Phone Zahira King BETTIE Primary Care Provider Encounter Details Date Type Department Care Team Description 07/31/2019 Orders Only [facility] Doctor Unassigned, No [address] [facility] [place] [address] [place] [id number] Allergies No Known Allergiesdocumented as of this encounter (statuses as of 10/28/2019) Medications Medication Sig Dispensed Refills Start Date End Date Status proMETHazine 25 mg Take 1 tablet by 12 tablet 0 07/27/2017 Active tablet mouth every 6 (six) hours as needed for Nausea and Vomiting (N/V). traMADOL 50 mg Take 1 tablet by 8 tablet 0 03/12/2019 Active tabletIndications: mouth every 6 Chest pain, (six) hours as unspecified type needed for Pain (scale 4-6) or Pain (scale 7-10). documented as of this encounter (statuses as of 10/28/2019) Active Problems Problem Noted Date Gastroesophageal reflux disease without esophagitis 05/21/2019 Well woman exam 05/01/2019 Encounter for initial prescription of contraceptives, unspecified 05/01/2019 contraceptive Screening examination for STD (sexually transmitted disease) 05/01/2019 Abdominal pain, generalized 05/01/2019 Intercostal pain 05/01/2019 Class 3 severe obesity with body mass index (BMI) of 40.0 to 44.9 in 2018 adult, unspecified obesity type, unspecified whether serious comorbidity present Screening examination for venereal disease 05/01/2019 Obesity complicating , childbirth, or puerperium, antepartum 2014 Overview: ICD10 Diagnosis Term Carbonator Utility Needs flu shot 09/24/2014 Nausea and vomiting in prior to 22 weeks gestation 09/24/2014 Encounter for routine gynecological examination 10/28/2013 Overview: ICD10 Diagnosis Term Carbonator Utility Morbid obesity 10/28/2013 documented as of this encounter (statuses as of 10/28/2019) Resolved Problems Problem Noted Date Resolved Date Vaginal bleeding 11/18/2014 05/01/2019 Missed 10/31/2014 02/27/2015 Vaginal bleeding in , first trimester 10/31/2014 02/27/2015 Unsure of LMP (last menstrual period) as reason for 09/24/2014 05/01/2019 ultrasound scan Bacterial vaginosis 10/28/2013 05/01/2019 Trichomonal vulvovaginitis 10/28/2013 05/01/2019 Metrorrhagia 10/28/2013 05/01/2019 Metrorrhagia 06/28/2013 10/28/2013 Contraception, device intrauterine, checking 06/28/2013 10/28/2013 documented as of this encounter (statuses as of 10/28/2019) Immunizations Name Administration Dates Next Due Influenza Virus Vaccine Quad IM 3+ YRS 11/18/2014 Pneumococcal Polysaccharide, PPSV23 (PNEUMOVAX) 11/18/2014 Rubella 06/29/2010 Tdap 05/19/2012 documented as of this encounter Social History Tobacco Use Types Packs/Day Years Used Date Current Some Day Smoker Cigarettes 0.5 2.5 Smokeless Tobacco: Never Used Alcohol Use Drinks/Week oz/Week Comments Yes not during pregancy Alcohol Habits Answer Date Recorded How often do you have a drink containing alcohol? 2-4 times a month 2018 How many drinks containing alcohol do you have on a Not asked typical day when you are drinking? How often do you have six or more drinks on one Not asked occasion? Sex Assigned at Date Recorded Not on file Job Start Date Occupation Industry Not on file Not on file Not on file Travel History Travel Start Travel End No recent travel history available. documented as of this encounter Last Filed Vital Signs Not on filedocumented in this encounter Plan of Treatment Health Maintenance Due Date Last Done Comments VARICELLA VACCINES (1 of 2 - 13+ 2000 2-dose series) INFLUENZA VACCINE (#1) 2019 11/18/2014 PAP SMEAR 05/01/2022 05/01/2019, 09/23/2014, 10/07/2011, Additional history exists DTaP,Tdap,and Td Vaccines (2 - Td) 05/19/2022 05/19/2012 PNEUMOCOCCAL 0-64 YEARS COMBINED Completed 11/18/2014 SERIES documented as of this encounter Procedures Procedure Name Priority Date/Time Associated Diagnosis Comments IMMTRAC2 CONSENT Routine 07/31/2019 12:01 AM [employer]PERVISOR [employer]IV[employer] documented in this encounter Results Not on filedocumented in this encounter Insurance Payer Benefit Plan / Subscriber ID Effective Phone Address Type Group [facility] xxxxxxxxx 2019-Pres [address] Medicaid HEALTH CHOICE - HEALTH CHOICE ent [id number] MANAGED MEDICAID [place], [place] [phone] documented as of this encounter Advance Directives Name Relationship Healthcare Agent Relationship Communication Josey Zurita Sibling First alternate healthcare agent [phone] ( Mobile)
[2019-10-29] MEDS ORDERED: IBUPROFEN 200 MG TAB PO ONE (18:53)
[2019-10-29] MEDS ORDERED: predniSONE 20 MG TAB ONE (18:53)
[2019-10-29] MEDS ORDERED: IBUPROFEN 400 MG TAB ONE (18:54)
--- NOTE | 2019-10-29 19:19 | RAD REPORT ---
EXAM DESCRIPTION: RAD - Wrist Left 3 View - 10/29/2019 7:01 pm CLINICAL HISTORY: Left wrist pain FINDINGS: No fracture or dislocation is seen. No bone or joint abnormality
--- NOTE | 2019-10-29 20:20 | EDPHYS ---
Physician Documentation [facility] Name: Suzy Hammer Age: 34 yrs Sex: Female : 1985 Arrival Date: 10/29/2019 Time: 18:07 Bed 30 Private MD: ED Physician Omega Valadez HPI: 10/29 18:51 This 34 yrs old Female presents to ER via Ambulatory with complaints of Left pm1 Hand Pain. 18:51 The patient or guardian reports pain, swelling. The complaints affect the left wrist pm1 and left hand. Context: resulted from an unknown cause. Onset: The symptoms/episode began/occurred 2 week(s) ago. Modifying factors: The symptoms are alleviated by nothing, the symptoms are aggravated by movement. Associated signs and symptoms: Pertinent negatives: cyanosis distally, decreased sensation distally, fever, numbness distally, tingling distally. Severity of symptoms: in the emergency department the symptoms are actually worse, radiation to left forearm area. The patient has not experienced similar symptoms in the past. The patient has not recently seen a physician, and does not have an established primary care provider. 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 Started having left hand and wrist pain two weeks ago that has gotten worse by radiating to left forearm. 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 - Coronavirus screen:: The patient has NOT traveled to [place] in the past 14 days. Proceed with normal triage process as indicated. - Social history:: Smoking status: Patient denies any tobacco usage or history of. - Ebola Screening: : No symptoms or risks identified at this time. ROS: 18:51 Constitutional: Negative for fever, chills, and weight loss, Cardiovascular: Negative pm1 for chest pain, palpitations, and edema, Respiratory: Negative for shortness of breath, cough, wheezing, and pleuritic chest pain, Abdomen/GI: Negative for abdominal pain, nausea, vomiting, diarrhea, and constipation, Back: Negative for injury and pain. 18:51 Skin: Negative for injury, rash, and discoloration, Neuro: Negative for headache, weakness, numbness, tingling, and seizure. 18:51 MS/extremity: Positive for pain, of the left wrist and left arm and left hand, Negative for injury or acute deformity, decreased range of motion, deformity, paresthesias, tingling. 18:51 All other systems are negative. Exam: 18:51 Constitutional: This is a well developed, well nourished patient who is awake, alert, pm1 and in no acute distress. Head/Face: Normocephalic, atraumatic. Neck: Trachea midline, no thyromegaly or masses palpated, and no cervical lymphadenopathy. Supple, full range of motion without nuchal rigidity, or vertebral point tenderness. No Meningismus. Chest/axilla: Normal chest wall appearance and motion. Nontender with no deformity. No lesions are appreciated. Cardiovascular: Regular rate and rhythm with a normal S1 and S2. No gallops, murmurs, or rubs. Normal PMI, no JVD. No pulse deficits. Respiratory: Lungs have equal breath sounds bilaterally, clear to auscultation and percussion. No rales, rhonchi or wheezes noted. No increased work of breathing, no retractions or nasal flaring. Back: No spinal tenderness. No costovertebral tenderness. Full range of motion. Skin: Warm, dry with normal turgor. Normal color with no rashes, no lesions, and no evidence of cellulitis. 18:51 Musculoskeletal/extremity: Extremities: grossly normal except: noted in the left wrist: positive Tinel and Phalen sign to left wrist.. 18:51 Neuro: Orientation: is normal, Motor: is normal, moves all fours. Vital Signs: 18:16 BP 119 / 84; Pulse 71; Resp 16 S; Temp 98.8(O); Pulse Ox 99% on R/A; Weight 108.41 kg jl7 (R); Height 5 ft. 3 in. (160.02 cm) (R); Pain 10/10; 18:16 Body Mass Index 42.34 (108.41 kg, 160.02 cm) jl7 MDM: 18:29 Patient medically screened. [facility] 18:56 Data reviewed: vital signs. Data interpreted: Pulse oximetry: on room air is 99 %. pm1 Interpretation: normal. 19:58 Counseling: I had a detailed discussion with the patient and/or guardian regarding: the pm1 historical points, exam findings, and any diagnostic results supporting the discharge/admit diagnosis, radiology results, the need for outpatient follow up, for definitive care, a hand specialist, to return to the emergency department if symptoms worsen or persist or if there are any questions or concerns that arise at home. 10/29 18:40 Order name: Wrist Left (3 View) XRAY pm1 10/29 19:24 Order name: RAD; Complete Time: 19:42 EDDC 10/29 18:40 Order name: Wrist Splint; Complete Time: 18:55 pm1 Administered Medications: 18:52 Drug: Ibuprofen 600 mg Route: PO; ls4 19:35 Follow up: Response: No adverse reaction; Marked relief of symptoms ls4 18:52 Drug: predniSONE 60 mg Route: PO; ls4 19:35 Follow up: Response: No adverse reaction; Marked relief of symptoms ls4 Disposition: 10/29/19 20:20 Discharged to Home. Impression: Carpal tunnel syndrome, left upper limb. - Condition is Stable. - Discharge Instructions: Carpal Tunnel Syndrome, Wrist Splint. - Prescriptions for Diclofenac Sodium 75 mg Oral Tablet, Delayed Release (E.C.) - take 1 tablet by ORAL route 2 times per day As needed; 30 tablet. Medrol (Rudy) 4 mg Oral Tablets, Dose Pack - take 1 tablet by ORAL route as directed - follow package instructions; 1 packet. - Medication Reconciliation Form, Thank You Letter, Antibiotic Education, Prescription Opioid Use form. - Follow up: Emergency Department; When: As needed; Reason: Worsening of condition. Follow up: Private Physician; When: 2 - 3 days; Reason: Recheck today's complaints, Continuance of care, Re-evaluation by your physician. - Problem is new. - Symptoms have improved. Addendum: 10/31/2019 08:01 Co-signature as Attending Physician, Omega Valadez MD I agree with the assessment and c monroe plan of care. Signatures: Dispatcher [employer] [facility] Omega Valadez MD MD cha Marinas, Patrick, RESEARCH PROGRAM COORDINATOR RESEARCH PROGRAM COORDINATOR pm1 Roby Ruiz RN RN jl7 Celi Middleton RN RN ls4 Corrections: (The following items were deleted from the chart) 10/29 20:29 20:20 10/29/2019 20:20 Discharged to Home. Impression: Carpal tunnel syndrome, left ls4 upper limb. Condition is Stable. Forms are Medication Reconciliation Form, Thank You Letter, Antibiotic Education, Prescription Opioid Use. Follow up: Emergency Department; When: As needed; Reason: Worsening of condition. Follow up: Private Physician; When: 2 - 3 days; Reason: Recheck today's complaints, Continuance of care, Re-evaluation by your physician. Problem is new. Symptoms have improved. pm1
--- NOTE | 2019-10-29 20:20 | ER ---
Nurse's Notes [facility] Name: Suzy Hammer Age: 34 yrs Sex: Female : 1985 Arrival Date: 10/29/2019 Time: 18:07 Bed 30 Private MD: Diagnosis: Carpal tunnel syndrome, left upper limb Presentation: 10/29 18:14 Presenting complaint: Patient states: left hand/forearm pain and swelling x 2 weeks, jl7 denies trauma. Transition of care: patient was not received from another setting of care. Onset of symptoms was October 15, 2019. Risk Assessment: Do you want to hurt yourself or someone else? Patient reports no desire to harm self or others. Initial Sepsis Screen: Does the patient meet any 2 criteria? No. Patient's initial sepsis screen is negative. Does the patient have a suspected source of infection? No. Patient's initial sepsis screen is negative. Care prior to arrival: None. 18:14 Method Of Arrival: Ambulatory [facility] 18:14 Acuity: YULIANA 4 jl7 Triage Assessment: 18:16 General: Appears in no apparent distress. uncomfortable, Behavior is calm, cooperative, jl7 appropriate for age. Pain: Complains of pain in left hand and left arm Pain currently is 10 out of 10 on a pain scale. 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 - Coronavirus screen:: The patient has NOT traveled to [place] in the past 14 days. Proceed with normal triage process as indicated. - Social history:: Smoking status: Patient denies any tobacco usage or history of. - Ebola Screening: : No symptoms or risks identified at this time. Screenin:26 Abuse screen: Denies threats or abuse. Denies injuries from another. Nutritional ls4 screening: No deficits noted. Tuberculosis screening: No symptoms or risk factors identified. Fall Risk None identified. Assessment: 18:25 General: Appears in no apparent distress. Pain: Complains of pain in left arm and left ls4 hand Pain currently is 10 out of 10 on a pain scale. Neuro: No deficits noted. Cardiovascular: No deficits noted. Respiratory: No deficits noted. GI: No deficits noted. : No deficits noted. Derm: No deficits noted. Musculoskeletal: Circulation, motion, and sensation intact. Capillary refill < 3 seconds, Range of motion: limited in left wrist Tenderness present in left arm and left hand. Vital Signs: 18:16 BP 119 / 84; Pulse 71; Resp 16 S; Temp 98.8(O); Pulse Ox 99% on R/A; Weight 108.41 kg jl7 (R); Height 5 ft. 3 in. (160.02 cm) (R); Pain 10/10; 18:16 Body Mass Index 42.34 (108.41 kg, 160.02 cm) 7 ED Course: 18:07 Patient arrived in ED. as 18:13 Dre Solares NP is PHCP. pm1 18:13 Omega Valadez MD is Attending Physician. pm1 18:15 Triage completed. jl7 18:16 Arm band placed on right wrist. jl7 18:25 Celi Middleton, RN is Primary Nurse. ls4 18:26 Patient has correct armband on for positive identification. Bed in low position. Call ls4 light in reach. Side rails up X 1. 18:27 No provider procedures requiring assistance completed. ls4 18:58 Wrist Left (3 View) XRAY Sent. ls4 Administered Medications: 18:52 Drug: Ibuprofen 600 mg Route: PO; ls4 19:35 Follow up: Response: No adverse reaction; Marked relief of symptoms ls4 18:52 Drug: predniSONE 60 mg Route: PO; ls4 19:35 Follow up: Response: No adverse reaction; Marked relief of symptoms ls4 Outcome: 20:20 Discharge ordered by . pm1 20:22 Discharged to home ambulatory. ls4 20:22 Condition: good 20:22 Discharge instructions given to patient, family, Instructed on discharge instructions, follow up and referral plans. medication usage, Demonstrated understanding of instructions, follow-up care, medications, Prescriptions given X 2. 20:29 Patient left the ED. ls4 Signatures: Maria Hammer as Dre Solares NP SENIOR BUSINESS OBJECTS DEVELOPER pm1 Roby Ruiz RN RN jl7 Celi Middleton RN RN ls4
[2019-10-31 11:02] VITALS: BP 119/84; TEMP 98.8; O2SAT 99
== END 2019-10-29 20:29 | disposition home or self-care (01) ==
LOC: ER 18:05
DX: G56.02 Carpal tunnel syndrome, left upper limb (principal)
CPT/HCPCS: 73110; 99283; J7512

== ENCOUNTER 2022-01-15 16:38 | Emergency (ER) | payer OTHER ==
--- OUTSIDE RECORDS SUMMARY | 2022-01-15 16:43 | XMS REPORT | Continuity of Care Document ---
:1985 Author Organization [facility] t Address [address] [place] [address] Care Team Providers Name Role Phone FERNANDO Primary Care Physician Unavailable PATEL Attending Clinician Unavailable Singer ALFREDO Attending Clinician Jose SMYTH Attending Clinician Clau ARIAS Attending Clinician Unavailable Doctor Unassigned, Name Attending Clinician Unavailable Fernando ALEXANDRE Attending Clinician 1, Lab Attending Clinician Unavailable Woodrow ALEXANDRE R Attending Clinician PATEL Admitting Clinician Unavailable Payers Payer Name Policy Type Policy Number Effective Date Expiration Date [facility] [id number] 2019 CHOICE MEDICAID 00:00:00 Advance Directives Directive Decision Effective Termination Comments Source Date Date Healthcare Agents on N/A [facility] FileNameRelationshipHealthcare of [place] Agent Medical RelationshipCommunicationShelby [facility] [phone] (Mobile) Problems Condition Condition Condition Status Onset Resolution Last Treating Co mments Source Name Details Category Date Date Treatment Clinician Date Gastroesop Gastroesop Disease Active 2018- U nivers hageal hageal 9-03 ity of reflux reflux 00:00: [place] disease disease 00 Medical without without Branch esophagiti esophagiti s s Well woman Well woman Disease Active 2019- U nivers exam exam 8-14 ity of 00:00: [place] 00 Medical Branch Encounter Encounter Disease Active 2019- Uni vers for for 8-14 ity of initial initial 00:00: [place] prescripti prescripti 00 Me dical on of on of Branch contracept contracept markel, markel, unspecifie unspecifie d d contracept contracept randa randa Screening Screening Disease Active Uni vers examinatio examinatio 8-14 it y of n for n for 00:00: [place] venereal venereal 00 Medica l disease disease Branch Abdominal Abdominal Disease Active Uni vers pain, pain, 8-14 ity of generalize generalize 00:[place] d [place] 00 Medical [place] Intercosta Intercosta Disease Active U nivers l pain l pain 8-14 ity of 00:00: [place] 00 Medical Branch Class 3 Class 3 Disease Active Univers severe severe 8-14 ity of obesity obesity 00:00: [place] with body with body 00 Medi herve mass index mass index Br anch (BMI) of (BMI) of 40.0 to 40.0 to 44.9 in 44.9 in adult, adult, unspecifie unspecifie d obesity d obesity type, type, unspecifie unspecifie d whether d whether serious serious comorbidit comorbidit y present y present Encounter Encounter Disease Active Uni vers for for 8-14 [place] of contracept [place]pt [place] randa randa 00 Medical management management Br anch , , unspecifie unspecifie d type d type Vaginal Vaginal Disease Active Univers bleeding bleeding 3-03 ity of 00:00: [place] 00 Medical Branch Obesity Obesity Disease Active Overview: Univ ers complicati complicati 107 Formattin ity of ng ng 00:00: g of this [place] , , 00 note Me dical childbirth childbirth might be Branch , or , or different puerperium puerperium from the , , original. antepartum antepartum ICD10 Diagnosis Term Eyelet Operator Utility Needs flu Needs flu Disease Active Uni vers shot shot - ity of 00:00: [place] 00 Medical Branch Unsure of Unsure of Disease Active Uni vers LMP (last LMP (last 09-24 [place] of menstrual menstrual 00:00[place] period) as period) as 00 Me dical reason for reason for Br anch ultrasound ultrasound scan scan Nausea and Nausea and Disease Active U nivers vomiting vomiting 1-07 ity of in in 00:00: [place] 00 Medi herve prior to prior to Branch 22 weeks 22 weeks gestation gestation Encounter Encounter Disease Active Overview: Univers for for 2-10 Formattin ity of routine routine 00:00: g of this [place] gynecologi gynecologi 00 note Me dical herve herve might be Branch examinatio examinatio different n n from the original. ICD10 Diagnosis Term Eyelet Operator Utility Morbid Morbid Disease Active Univers obesity obesity 2-10 ity of 00:00: [place] Medical [facility] Bacterial Bacterial Disease Active Uni vers vaginosis vaginosis 2-10 ity of 00:00: [place] Medical [facility] Trichomona Trichomona Disease Active U nivers l l 2-10 ity of vulvovagin vulvovagin [place] it[place] it[place] [facility] Branch Metrorrhag Metrorrhag Disease Active U nivers ia ia 2-10 ity of 00:00: [place] [facility] Allergies, Adverse Reactions, Alerts Allergy Allergy Status Severity Reaction(s) Onset Inactive Treating Comm ents Source Name Type Date Date Clinician NO KNOWN Drug Active Univers ALLERGIE Class ity of S [facility] Social History Social Habit Start Date Stop Date Quantity Comments Source Exposure to Not sure [facility] SARS-CoV-2 (event) [facility] History [facility] University o f Alcohol Std Drinks [facility] History [facility] o f Alcohol Binge [facility] al Branch Alcohol intake 2019-07-31 2019-07-31 Current drinker Unive rsity of 00:00:00 00:00:00 of alcohol [facility] (finding) Branch Cigarettes smoked 2019-05-01 2019-05-01 Univers ity of current (pack per 00:00:00 00:00:00 [facility] [place] [facility] ) - Reported Branch Cigarette 2019-05-01 2019-05-01 University of pack-years 00:00:00 00:00:00 [facility] Tobacco use and 2019-05-01 2019-05-01 Never used Universit y of exposure 00:00:00 00:00:00 [facility] History SDOH 2019-05-01 2019-05-01 3 University o f Alcohol Frequency 00:00:00 00:00:00 [facility] Alcohol Comment 2014-09-23 2014-09-23 not during Universit y of 00:00:00 00:00:00 [facility] History of tobacco 2014-08-23 Cigarette Smoker University use 00:00:00 [facility] Sex [birth year] Universit y of 00:00:00 00:00:00 [facility] Smoking Status Start Date Stop Date Source Current some 2019-05-01 00:00:00 [facility] smoker [facility] Former smoker 2015-02-27 00:00:00 2015-02-27 00:00:00 [facility] Medications Ordered Filled Start Stop Current Ordering Indication Dosage Frequency Signature Comments Components Source Medication Medication Date Date Medication? Clinician (SIG) Name Name HYDROcodone 2020-09 No 1{tbl} 1 tablet, Univers -acetaminop 11-15 Oral, ity of hen (NORCO) 21:15: 20:08 [place]CE[place] 1 [place] 10-325 mg [place] :00 dose, On Medica l tablet 1 [facility] tablet 09/14/21 at 1515, Routine cefTRIAXone 2020-09 No 1000mg 1,000 mg, Univers (ROCEPHIN) 11-15 IV ity of 1,000 mg in 21:00: 08:59 [place], [place] NaCl 0.9% 00 :00 ONCE, 1 Medical (NS) 50 mL dose, On Bran h MINI-BAG 09/14/21 at 1500, Administer over 30 Minutes, 50 mL
Reas on for Anti-Infec tive: Empiric Therapy for Suspected Infection< br>Empiric Therapy Site: Urine
D uration of therapy: 72 hours ondansetron 2020-09 No 4mg 4 mg, Slow Univers (ZOFRAN 11-15 IV Push, ity of (PF)) 19:15: 18:17 ONCE, 1 [place] injection 4 00 :00 dose, On Medi herve mg [facility] 09/14/21 at 1315, Routine iopamidol 2020-09- No [id number] 120mL 120 mL, Univers (ISOVUE 11-15 Intravenou ity o f 370-500 mL) 18:56: 19:00 s, ONCE, 1 [place] injection 00 :00 dose, On Medica l 120 mL [facility] 09/14/21 at 1315, Routine NaCl 0.9% 2020-09 No 1000mL at 999 Uni vers (NS) bolus 2-28 12-28 mL/hr, ity of infusion 18:15: 20:22 1,000 mL, Chance as 1,000 mL 00 :00 IV Medical Infusion, [place] ONCE, 1 dose, On [facility] 09/14/21 at 1215, STAT phenazopyri 2020-09 Yes [id number] 200mg Take 1 Univers dine 200 mg - tablet by ity of tablet 00:00: mouth 3 [place] 00 (three) Medical [facility] daily. cephALEXin 2020-09 No [id number] 500mg Take 1 Univers (KEFLEX) 2-15 10-05 capsule by ity of 500 mg 00:00: 05:59 mouth 3 [place] capsule 00 :00 (three) [facility] daily for 7 days. maalox:diph 2020- No 15mL 15 mL, Uni vers enhydrAMINE 6-17 06-17 Oral, ity of :lidocaine 21:15: 20:22 ONCE, 1 [place] 2 % viscous 00 :00 dose, Marie Med ical 1:1:1 03/04/21 at [place] (FIRST-MOUT 1615, HWASH BLM) Routine oral suspension 15 mL pantoprazol Yes [id number] 40mg Take 1 Univers e 40 mg EC 6-17 tablet by ity of tablet 00:00: mouth [place] 00 daily. [facility] Branch ondansetron Yes [id number] 4mg Take 1 Univers 4 mg 6-17 tablet by ity of disintegrat 00:00: mouth [place] ing tablet 00 every 4 Medica l (four) [place] hours as needed for Nausea and Vomiting (N/V). Nitrofurant Yes [id number] 100mg Take 1 Univers oin&Nit. 6-17 capsule by ity o f Macrocryst 00:00: mouth 2 [place] (MACROBID) 00 (two) Medical [address] [facility] capsule daily. sucralfate Yes [id number] 1g Take 1 U nivers 1 gram 6-17 tablet by ity of tablet 00:00: mouth [place] 00 before Medical meals and Branch at bedtime. pantoprazol Yes [id number] 40mg Take 1 Univers e 40 mg EC 6-17 tablet by ity of tablet 00:00: mouth [place] 00 daily. Medical Branch ondansetron Yes [id number] 4mg Take 1 Univers 4 mg 6-17 tablet by ity of disintegrat 00:00: mouth [place] ing tablet 00 every 4 Medica l (four) Branch hours as needed for Nausea and Vomiting (N/V). Nitrofurant Yes [id number] 100mg Take 1 Univers oin&Nit. 6-17 capsule by ity o f Macrocryst 00:00: mouth 2 [place] (MACROBID) 00 (two) Medical 100 mg times Branch capsule daily. sucralfate Yes [id number] 1g Take 1 U nivers 1 gram 6-17 tablet by ity of tablet 00:00: mouth [place] 00 before Medical meals and Branch at bedtime. omeprazole 2018- No [id number] 20mg Take 1 Univers 20 mg -08-20 capsule by ity of capsule 00:00: 05:59 mouth [place] 00 :00 daily for Medical 90 days. Branch omeprazole 2018- No [id number] 20mg Take 1 Univers 20 mg -11 27- capsule by ity of capsule 00:00: 05:59 mouth [place] 00 :00 daily for Medical 90 days. Branch omeprazole 2019- No [id number] 20mg Take 1 Univers 20 mg - 12- capsule by ity of capsule 00:00: 05:59 mouth [place] 00 :00 daily for Medical 90 days. Branch omeprazole 2019- No [id number] 20mg Take 1 Univers 20 mg 9- 12- capsule by ity of capsule 00:00: 05:59 mouth [place] 00 :00 daily for Medical 90 days. Branch omeprazole 2019- No [id number] 20mg Take 1 Univers 20 mg -11 27- capsule by ity of capsule 00:00: 05:59 mouth [place] 00 :00 daily for Medical 90 days. Branch omeprazole 2019- No [id number] 20mg Take 1 Univers 20 mg 05-21 capsule by ity of capsule 00:00: 05:59 mouth [place] 00 :00 daily for Medical 90 days. Branch omeprazole 2019- No [id number] 20mg Take 1 Univers 20 mg 05-21 capsule by ity of capsule 00:00: 05:59 mouth [place] 00 :00 daily for Medical 90 days. Branch azithromyci 2019- No [id number] 1000mg Take 2 Univers n 500 mg 8-19 08-21 tablets by ity of tablet 00:00: 04:59 mouth [place] 00 :00 daily for Medical 1 day. Branch azithromyci 2019- No [id number] 1000mg Take 2 Univers n 500 mg 8-19 08-21 tablets by ity of tablet 00:00: 04:59 mouth [place] 00 :00 daily for Medical 1 day. Branch ASPIRIN/BELEM 2019- No 2{tbl} Take 2 U nivers TAMINOPHEN/ 8-14 08-14 Tabs by ity of CAFFEINE 18:26: 00:00 [place] (EXCEDRIN 28 :00 needed. Medical MIGRAINE Branch ORAL) ASPIRIN/BELEM 2019- No 2{tbl} Take 2 U nivers TAMINOPHEN/ 8-14 08-14 Tabs by ity of CAFFEINE 18:26: 00:00 [place] (EXCEDRIN 28 :00 needed. Medical MIGRAINE Branch ORAL) traMADOL 50 2018- Yes [id number] 50mg Take 1 Univers mg tablet 6-25 tablet by ity o f 00:00: mouth [place] 00 every 6 Medical (six) Branch hours as needed for Pain (scale 4-6) or Pain (scale 7-10). traMADOL 50 2019- Yes [id number] 50mg Take 1 Univers mg tablet 6-25 tablet by ity o f 00:00: mouth [place] 00 every 6 Medical (six) Branch hours as needed for Pain (scale 4-6) or Pain (scale 7-10). traMADOL 50 2019-0 Yes [id number] 50mg Take 1 Univers mg tablet 6-25 tablet by ity o f 00:00: mouth [place] 00 every 6 Medical (six) Branch hours as needed for Pain (scale 4-6) or Pain (scale 7-10). traMADOL 50 2019-0 Yes [id number] 50mg Take 1 Univers mg tablet 6-25 tablet by ity o f 00:00: mouth [place] 00 every 6 Medical (six) Branch hours as needed for Pain (scale 4-6) or Pain (scale 7-10). traMADOL 50 2019-0 Yes [id number] 50mg Take 1 Univers mg tablet 6-25 tablet by ity o f 00:00: mouth [place] 00 every 6 Medical (six) Branch hours as needed for Pain (scale 4-6) or Pain (scale 7-10). traMADOL 50 2019-0 Yes [id number] 50mg Take 1 Univers mg tablet 6-25 tablet by ity o f 00:00: mouth [place] 00 every 6 Medical (six) Branch hours as needed for Pain (scale 4-6) or Pain (scale 7-10). traMADOL 50 2018-0 Yes [id number] 50mg Take 1 Univers mg tablet 6-25 tablet by ity o f 00:00: mouth [place] 00 every 6 Medical (six) Branch hours as needed for Pain (scale 4-6) or Pain (scale 7-10). traMADOL 50 2018-0 Yes [id number] 50mg Take 1 Univers mg tablet 6-25 tablet by ity o f 00:00: mouth [place] 00 every 6 Medical (six) Branch hours as needed for Pain (scale 4-6) or Pain (scale 7-10). traMADOL 50 2018-0 Yes [id number] 50mg Take 1 Univers mg tablet 6-25 tablet by ity o f 00:00: mouth [place] 00 every 6 Medical (six) Branch hours as needed for Pain (scale 4-6) or Pain (scale 7-10). traMADOL 50 2018-0 Yes [id number] 50mg Take 1 Univers mg tablet 6-25 tablet by ity o f 00:00: mouth [place] 00 every 6 Medical (six) Branch hours as needed for Pain (scale 4-6) or Pain (scale 7-10). traMADOL 50 2019-0 Yes [id number] 50mg Take 1 Univers mg tablet 6-25 tablet by ity o f 00:00: mouth [place] 00 every 6 Medical (six) Branch hours as needed for Pain (scale 4-6) or Pain (scale 7-10). traMADOL 50 2019-0 Yes [id number] 50mg Take 1 Univers mg tablet 6-25 tablet by ity o f 00:00: mouth [place] 00 every 6 Medical (six) Branch hours as needed for Pain (scale 4-6) or Pain (scale 7-10). traMADOL 50 2019-0 Yes [id number] 50mg Take 1 Univers mg tablet 6-25 tablet by ity o f 00:00: mouth [place] 00 every 6 Medical (six) Branch hours as needed for Pain (scale 4-6) or Pain (scale 7-10). traMADOL 50 2018-0 Yes [id number] 50mg Take 1 Univers mg tablet 6-25 tablet by ity o f 00:00: mouth [place] 00 every 6 Medical (six) Branch hours as needed for Pain (scale 4-6) or Pain (scale 7-10). traMADOL 50 2018-0 Yes [id number] 50mg Take 1 Univers mg tablet 6-25 tablet by ity o f 00:00: mouth [place] 00 every 6 Medical (six) Branch hours as needed for Pain (scale 4-6) or Pain (scale 7-10). traMADOL 50 0 Yes [id number] 50mg Take 1 Univers mg tablet 6-25 tablet by ity o f 00:00: mouth [place] 00 every 6 Medical (six) Branch hours as needed for Pain (scale 4-6) or Pain (scale 7-10). proMETHazin 2016- Yes 25mg Take 1 Univ ers e 25 mg 1-09 tablet by ity of tablet 00:00: mouth [place] 00 every 6 Medical (six) Branch hours as needed for Nausea and Vomiting (N/V). proMETHazin 2016- Yes 25mg Take 1 Univ ers e 25 mg 1-09 tablet by ity of tablet 00:00: mouth [place] 00 every 6 Medical (six) Branch hours as needed for Nausea and Vomiting (N/V). proMETHazin 2016- Yes 25mg Take 1 Univ ers e 25 mg 1-09 tablet by ity of tablet 00:00: mouth [place] 00 every 6 Medical (six) Branch hours as needed for Nausea and Vomiting (N/V). proMETHazin 2016- Yes 25mg Take 1 Univ ers e 25 mg 1-09 tablet by ity of tablet 00:00: mouth [place] 00 every 6 Medical (six) Branch hours as needed for Nausea and Vomiting (N/V). proMETHazin 2016- Yes 25mg Take 1 Univ ers e 25 mg 1-09 tablet by ity of tablet 00:00: mouth [place] 00 every 6 Medical (six) Branch hours as needed for Nausea and Vomiting (N/V). proMETHazin 2016- Yes 25mg Take 1 Univ ers e 25 mg 1-09 tablet by ity of tablet 00:00: mouth [place] 00 every 6 Medical (six) Branch hours as needed for Nausea and Vomiting (N/V). proMETHazin 2016-09 Yes 25mg Take 1 Univ ers e 25 mg 1-09 tablet by ity of tablet 00:00: mouth [place] 00 every 6 Medical (six) Branch hours as needed for Nausea and Vomiting (N/V). proMETHazin 2016-09 Yes 25mg Take 1 Univ ers e 25 mg 1-09 tablet by ity of tablet 00:00: mouth [place] 00 every 6 Medical (six) Branch hours as needed for Nausea and Vomiting (N/V). proMETHazin 2016-09 Yes 25mg Take 1 Univ ers e 25 mg 1-09 tablet by ity of tablet 00:00: mouth [place] 00 every 6 Medical (six) Branch hours as needed for Nausea and Vomiting (N/V). proMETHazin 2016-09 Yes 25mg Take 1 Univ ers e 25 mg 1-09 tablet by ity of tablet 00:00: mouth [place] 00 every 6 Medical (six) Branch hours as needed for Nausea and Vomiting (N/V). proMETHazin 2016-09 Yes 25mg Take 1 Univ ers e 25 mg 1-09 tablet by ity of tablet 00:00: mouth [place] 00 every 6 Medical (six) Branch hours as needed for Nausea and Vomiting (N/V). proMETHazin 2016-09 Yes 25mg Take 1 Univ ers e 25 mg 1-09 tablet by ity of tablet 00:00: mouth [place] 00 every 6 Medical (six) Branch hours as needed for Nausea and Vomiting (N/V). proMETHazin 2016-09 Yes 25mg Take 1 Univ ers e 25 mg 1-09 tablet by ity of tablet 00:00: mouth [place] 00 every 6 Medical (six) Branch hours as needed for Nausea and Vomiting (N/V). proMETHazin 2016- Yes 25mg Take 1 Univ ers e 25 mg 1-09 tablet by ity of tablet 00:00: mouth [place] 00 every 6 Medical (six) Branch hours as needed for Nausea and Vomiting (N/V). phenazopyri 2016-09 Yes 200mg Take 1 Uni vers dine 200 mg -09 tablet by ity of tablet 00:00: mouth 3 [place] 00 (three) Medical times Branch daily. proMETHazin 2016-09 Yes 25mg Take 1 Univ ers e 25 mg -09 tablet by ity of tablet 00:00: mouth [place] 00 every 6 Medical (six) Branch hours as needed for Nausea and Vomiting (N/V). proMETHazin 2016-09 Yes 25mg Take 1 Univ ers e 25 mg -09 tablet by ity of tablet 00:00: mouth [place] 00 every 6 Medical (six) Branch hours as needed for Nausea and Vomiting (N/V). phenazopyri 2016-09- No 200mg Take 1 Un hoang dine 200 mg 09-26 tablet by it y of tablet 00:00: 00:00 mouth 3 [place] 00 :00 (three) Medical times Branch daily. phenazopyri 2016-09- No 200mg Take 1 Un hoang dine 200 mg 09-26 tablet by it y of tablet 00:00: 00:00 mouth 3 [place] 00 :00 (three) Medical times Branch daily. ASPIRIN/BELEM 2014- Yes 2{tbl} Take 2 [facility] TAMINOPHEN/ 3-03 Tabs by ity o f CAFFEINE 19:20: mouth as [place] (EXCEDRIN 27 needed. Medical MIGRAINE Branch ORAL) ascorbic 2014- Yes 500mg Take 1 Tab [facility] acid 3-03 by mouth 2 ity of (VITAMIN C) 00:00: (two) [place] 500 mg 00 times Medical tablet daily. Branch docusate Yes 100mg Take 1 Cap [facility] (COLACE) 3-03 by mouth 2 ity o f 100 mg 00:00: (two) [place] capsule 00 times Medical daily as Branch needed for Constipati on. ferrous 2014- Yes 325mg Take 1 Tab Uni vers sulfate 325 3-03 by mouth 3 it y of mg (65 mg 00:00: (three) [place] iron) 00 times Medical tablet daily with Branch meals. foLIC acid 2014- Yes 1mg Take 1 Tab U nivers (FOLATE) 1 3-03 by mouth ity o f mg tablet 00:00: daily. [place] 00 Medical Branch ascorbic 2014- 2019- No 500mg Take 1 Tab U nivers acid 3-03 08-14 by mouth 2 ity of (VITAMIN C) 00:00: 00:00 (two) [place] 500 mg 00 :00 times Medical tablet daily. Branch docusate 2019- No 100mg Take 1 Cap U nivers (COLACE) 11-1814 by mouth 2 ity of 100 mg 00:00: 00:00 (two) [place] capsule 00 :00 times Medical daily as Branch needed for Constipati on. ferrous 2019- No 325mg Take 1 Tab Un [place] sulfate 325 11-1814 by mouth 3 i ty of mg (65 mg 00:00: 00:00 (three) [place] iron) 00 :00 times Medical tablet daily with Branch meals. foLIC acid 2019- No 1mg Take 1 Tab Univers (FOLATE) 1 11-1814 by mouth ity of mg tablet 00:00: 00:00 daily. [place] 00 :00 Medical Branch ascorbic 2019- No 500mg Take 1 Tab U nivers acid 11-1814 by mouth 2 ity of (VITAMIN C) 00:00: 00:00 (two) [place] 500 mg 00 :00 times Medical tablet daily. Branch docusate 2019- No 100mg Take 1 Cap U nivers (COLACE) 11-1814 by mouth 2 ity of 100 mg 00:00: 00:00 (two) [place] capsule 00 :00 times Medical daily as Branch needed for Constipati on. ferrous 2019- No 325mg Take 1 Tab [place] sulfate 325 11-1814 by mouth 3 i ty of mg (65 mg 00:00: 00:00 (three) [place] iron) 00 :00 times Medical tablet daily with Branch meals. foLIC acid 2019- No 1mg Take 1 Tab Univers (FOLATE) 1 11-18-14 by mouth ity of mg tablet 00:00: 00:00 daily. [place] 00 :00 Medical Branch acetaminoph Yes 1{tbl} Take 1-2 Univers en-codeine 2-10 Tabs by ity of (TYLENOL 00:00: mouth [place] #3) 300-30 00 every 6 Medica l mg tablet (six) Branch hours as needed for Pain unrelieved by non-narcot ic analgesics . ibuprofen Yes 600mg Take 1 Tab U nivers (MOTRIN) 2-10 by mouth ity of 600 mg 00:00: every 6 [place] tablet 00 (six) Medical hours as Branch needed for Pain (scale 1-3) or Pain (scale 4-6). acetaminoph 2019- No 1{tbl} Take 1-2 Univers en-codeine 2-10 08-14 Tabs by ity o f (TYLENOL 00:00: 00:00 mouth [place] #3) 300-30 00 :00 every 6 Medica l mg tablet (six) Branch hours as needed for Pain unrelieved by non-narcot ic analgesics . ibuprofen 2018- No 600mg Take 1 Tab Univers (MOTRIN) 2- 08-14 by mouth ity of 600 mg 00:00: 00:00 every 6 [place] tablet 00 :00 (six) Medical hours as Branch needed for Pain (scale 1-3) or Pain (scale 4-6). acetaminoph 2019- No 1{tbl} Take 1-2 Univers en-codeine 2-10 08-14 Tabs by ity o f (TYLENOL 00:00: 00:00 mouth [place] #3) 300-30 00 :00 every 6 Medica l mg tablet (six) Branch hours as needed for Pain unrelieved by non-narcot ic analgesics . ibuprofen 2018- No 600mg Take 1 Tab Univers (MOTRIN) 2- 08-14 by mouth ity of 600 mg 00:00: 00:00 every 6 [place] tablet 00 :00 (six) Medical hours as Branch needed for Pain (scale 1-3) or Pain (scale 4-6). Immunizations Ordered Filled Immunization Date Status Comments [facility] Immunization Name Name Pneumococcal 2014-11-18 Completed University o f Polysaccharide, 00:00:00 [place] Med ical PPSV23 (PNEUMOVAX) Branch Influenza Virus 2014-11-18 Completed Universit y of Vaccine Quad IM 3+ 00:00:00 [place] [facility] Branch Pneumococcal 2014-11-18 Completed University o f Polysaccharide, 00:00:00 [place] Med ical PPSV23 (PNEUMOVAX) Branch Influenza Virus 2014-11-18 Completed Universit y of Vaccine Quad IM 3+ 00:00:00 [facility] Pneumococcal 2014-11-18 Completed University o f Polysaccharide, 00:00:00 [place] Med ical PPSV23 (PNEUMOVAX) Branch Influenza Virus 2014-11-18 Completed Universit y of Vaccine Quad IM 3+ 00:00:00 [facility] Pneumococcal 2014-11-18 Completed University o f Polysaccharide, 00:00:00 [place] Med ical PPSV23 (PNEUMOVAX) Branch Influenza Virus 2014-11-18 Completed Universit y of Vaccine Quad IM 3+ 00:00:00 [facility] Pneumococcal 2014-11-18 Completed University o f Polysaccharide, 00:00:00 [place] Med ical PPSV23 (PNEUMOVAX) Branch Influenza Virus 2014-11-18 Completed Universit y of Vaccine Quad IM 3+ 00:00:00 [facility] Pneumococcal 2014-11-18 Completed University o f Polysaccharide, 00:00:00 [place] Med ical PPSV23 (PNEUMOVAX) Branch Influenza Virus 2014-11-18 Completed Universit y of Vaccine Quad IM 3+ 00:00:00 [facility] Pneumococcal 2014-11-18 Completed University o f Polysaccharide, 00:00:00 [place] Med ical PPSV23 (PNEUMOVAX) Branch Influenza Virus 2014-11-18 Completed Universit y of Vaccine Quad IM 3+ 00:00:00 [facility] Pneumococcal 2014-11-18 Completed University o f Polysaccharide, 00:00:00 [place] Med ical PPSV23 (PNEUMOVAX) Branch Influenza Virus 2014-11-18 Completed Universit y of Vaccine Quad IM 3+ 00:00:00 [facility] Pneumococcal 2014-11-18 Completed University o f Polysaccharide, 00:00:00 [place] Med ical PPSV23 (PNEUMOVAX) Branch Influenza Virus 2014-11-18 Completed Universit y of Vaccine Quad IM 3+ 00:00:00 [facility] Pneumococcal 2014-11-18 Completed University o f Polysaccharide, 00:00:00 [place] Med ical PPSV23 (PNEUMOVAX) Branch Influenza Virus 2014-11-18 Completed Universit y of Vaccine Quad IM 3+ 00:00:00 [facility] Pneumococcal 2014-11-18 Completed University o f Polysaccharide, 00:00:00 [place] Med ical PPSV23 (PNEUMOVAX) Branch Influenza Virus 2014-11-18 Completed Universit y of Vaccine Quad IM 3+ 00:00:00 [facility] Pneumococcal 2014-11-18 Completed University o f Polysaccharide, 00:00:00 [place] [facility] PPSV23 (PNEUMOVAX) Branch Influenza Virus 2014-11-18 Completed Universit y of Vaccine Quad IM 3+ 00:00:00 [facility] Pneumococcal 2014-11-18 Completed University o f Polysaccharide, 00:00:00 [place] [facility] PPSV23 (PNEUMOVAX) Branch Influenza Virus 2014-11-18 Completed Universit y of Vaccine Quad IM 3+ 00:00:00 [facility] Pneumococcal 2014-11-18 Completed University o f Polysaccharide, 00:00:00 [place] [facility] PPSV23 (PNEUMOVAX) Branch Influenza Virus 2014-11-18 Completed Universit y of Vaccine Quad IM 3+ 00:00:00 [facility] Pneumococcal 2014-11-18 Completed University o f Polysaccharide, 00:00:00 [place] [facility] PPSV23 (PNEUMOVAX) Branch Influenza Virus 2014-11-18 Completed Universit y of Vaccine Quad IM 3+ 00:00:00 [facility] Pneumococcal 2014-11-18 Completed University o f Polysaccharide, 00:00:00 [place] [facility] PPSV23 (PNEUMOVAX) Branch Influenza Virus 2014-11-18 Completed Universit y of Vaccine Quad IM 3+ 00:00:00 [facility] Tdap 2012-05-19 Completed University of 00:00:00 [facility] Tdap 2012-05-19 Completed University of 00:00:00 [facility] Tdap 2012-05-19 Completed University of 00:00:00 [facility] Tdap 2012-05-19 Completed University of 00:00:00 [facility] Tdap 2012-05-19 Completed University of 00:00:00 [facility] Tdap 2012-05-19 Completed University of 00:00:00 [facility] Tdap 2012-05-19 Completed University of 00:00:00 [facility] Tdap 2012-05-19 Completed University of 00:00:00 [facility] Tdap 2012-05-19 Completed University of 00:00:00 [facility] Tdap 2012-05-19 Completed University of 00:00:00 [facility] Tdap 2012-05-19 Completed University of 00:00:00 [facility] TDAP 2012-05-19 Completed University of 00:00:00 [facility] TDAP 2012-05-19 Completed University of 00:00:00 [facility] TDAP 2012-05-19 Completed University of 00:00:00 [facility] Tdap 2012-05-19 Completed University of 00:00:00 [facility] Tdap 2012-05-19 Completed University of 00:00:00 [facility] Rubella 2010-06-29 Completed University of 00:00:00 [facility] Rubella 2010-06-29 Completed University of 00:00:00 [facility] Rubella 2010-06-29 Completed University of 00:00:00 [facility] Rubella 2010-06-29 Completed University of 00:00:00 [facility] Rubella 2010-06-29 Completed University of 00:00:00 [facility] Rubella 2010-06-29 Completed University of 00:00:00 [facility] Rubella 2010-06-29 Completed University of 00:00:00 [facility] Rubella 2010-06-29 Completed University of 00:00:00 [facility] Rubella 2010-06-29 Completed University of 00:00:00 [facility] Rubella 2010-06-29 Completed University of 00:00:00 [facility] Rubella 2010-06-29 Completed University of 00:00:00 [facility] Rubella 2010-06-29 Completed University of 00:00:00 [facility] Rubella 2010-06-29 Completed University of 00:00:00 [facility] Rubella 2010-06-29 Completed University of 00:00:00 [facility] Rubella 2010-06-29 Completed University of 00:00:00 [facility] Rubella 2010-06-29 Completed University of 00:00:00 [facility] Vital Signs Vital Name Observation Time Observation Value Comments Source Systolic blood 2021-09-14 20:00:00 102 mm[Hg] Univer sity of pressure [facility] Diastolic blood 2021-09-14 20:00:00 48 mm[Hg] Unive rsity of pressure [facility] Heart rate 2021-09-14 20:00:00 68 /min Universi ty of [facility] Respiratory rate 2021-09-14 20:00:00 24 /min Univ ersity of [facility] Oxygen saturation in 2021-09-14 20:00:00 100 /min [facility] Arterial blood by [facility] Pulse oximetry Branch Body temperature 2021-09-14 17:57:00 36.61 Shelbie Univ ersity of [facility] Body height 2021-09-14 17:57:00 160 cm [facility] Body weight 2021-09-14 17:57:00 105.688 kg [facility] BMI 2021-09-14 17:57:00 41.27 kg/m2 [facility] Systolic blood 2021-03-04 21:00:00 128 mm[Hg] Univer sity of pressure [facility] Diastolic blood 2021-03-04 21:00:00 77 mm[Hg] Unive rsity of pressure [facility] Heart rate 2021-03-04 21:00:00 76 /min [facility]i [facility] Respiratory rate 2021-03-04 21:00:00 25 /min Univ ersity of [facility] Oxygen saturation in 2021-03-04 21:00:00 97 /min University of Arterial blood by [employer] Pulse oximetry Branch Body temperature 2021-03-04 18:19:00 36.94 Shelbie Univ ers[facility] Body height 2021-03-04 18:19:00 160 cm [facility] Body weight 2021-03-04 18:19:00 111.131 kg [facility] BMI 2021-03-04 18:19:00 43.40 kg/m2 [facility] Systolic blood 2019-05-21 18:47:00 103 mm[Hg] Univer sity of pressure [facility] Diastolic blood 2019-05-21 18:47:00 68 mm[Hg] Unive rsity of pressure [facility] Heart rate 2019-05-21 18:47:00 72 /min [facility] Body temperature 2019-05-21 18:47:00 37.06 Shelbie Univ ers[facility] Body height 2019-05-21 18:47:00 160 cm [facility] Body weight 2019-05-21 18:47:00 106.142 kg [facility] BMI 2019-05-21 18:47:00 41.45 kg/m2 [facility] Oxygen saturation in 2019-05-21 18:47:00 98 /min University of Arterial blood by [facility] Pulse oximetry Branch Systolic blood 2019-05-01 15:37:00 110 mm[Hg] [facility] of pressure [facility] Diastolic blood 2019-05-01 15:37:00 62 mm[Hg] [facility] Heart rate 2019-05-01 15:37:00 66 /min [facility] Body temperature 2019-05-01 15:37:00 36.44 Shelbie [facility] Respiratory rate 2019-05-01 15:37:00 20 /min [facility] Body height 2019-05-01 15:37:00 160 cm [facility] Body weight 2019-05-01 15:37:00 107.276 kg [facility] BMI 2019-05-01 15:37:00 41.89 kg/m2 [facility] Procedures Procedure Date / Time Performing Clinician Source Performed CT ABDOMEN PELVIS W 2021-09-14 19:06:17 [facility] CONTRAST [facility] POCT TEST 2021-09-14 18:47:00 Singer [facility] URINALYSIS 2021-09-14 18:32:[facility] 2021-09-14 18:16:00 [facility] COMP. METABOLIC PANEL 2021-09-14 18:16:00 Singer [facility] ([id number]) [facility] LIPID PANEL 2021-09-14 18:16:00 [facility] ([id number])(TOTAL Medical [place] CHOLESTEROL, TRIGLYCERIDES, HDL) CBC WITH DIFF 2021-09-14 18:16:00 [facility] COVID-19 (ID NOW RAPID 2021-09-14 18:16:00 Singer [facility] TESTING) Medical Branch LIPASE 2021-03-04 20:18:00 Jose [facility] HEPATIC FUNCTION PANEL 2021-03-04 20:18:00 Uche Garcia [facility] ([id number]) (ALB,T.PRO,BILI Medical Branch T,BU/BC,ALT,AST,ALK PHOS) BASIC METABOLIC PANEL 2021-03-04 20:18:00 Uche Garcia [facility] (NA, K, CL, CO2, Medical Branch GLUCOSE, BUN, CREATININE, CA) CBC WITH DIFF 2021-03-04 20:18:00 Jose [facility] URINALYSIS 2021-03-04 20:18:00 Uche Garcia [facility] POCT TEST 2021-03-04 20:18:00 Uche Garcia [facility] NOTICE OF PRIVACY 2021-03-04 18:03:31 Doctor Unassigned, No [facility] PRACTICES Name [facility] CONSENT/REFUSAL FOR 2021-03-04 18:00:43 Doctor Unassigned, No [facility] DIAGNOSIS AND TREATMENT [facility] REFERRAL- 2020-09-03 06:01:00 Doctor Unassigned, No [facility] REQUEST/RESPONSE [facility] [id number] CONSENT 2019-07-31 06:01:00 Doctor [facility]assigned, No [facility] COMP. METABOLIC PANEL 2019-05-22 15:52:00 [facility] [place] ([id number]) [facility] LIPID PANEL 2019-05-22 15:52:00 [facility] ([id number])(TOTAL Medical Branch CHOLESTEROL, TRIGLYCERIDES, HDL) CBC WITH DIFFERENTIAL 2019-05-22 15:52:00 [facility] PATIENT FINANCIAL 2019-05-22 15:35:36 Doctor Unassigned, No [facility] POLICY [facility] POCT TEST 2019-05-01 15:55:00 Balaji Troy [facility] ASSIGNMENT OF BENEFITS 2019-05-01 15:13:27 Doctor Unassigned, No [facility] Encounters Start End Encounter Admission Attending Care Care Encounter Source Date/Time Date/Time Type Type Clinicians Facility Department ID 2021-07-19 Emergency [facility] [id number] Univers 01:54:26 ity [facility] 2021-09-14 2021-09-14 Emergency X SINGER [facility] ERT [id number] Univers 11:56:00 14:24:00 DIGNA roper [facility] 2021-09-14 2021-09-14 [facility] [id number] Univers 11:56:00 14:24:00 Digna JORGE 350.1.13.10 i ty [facility] 4.2.7.2.686 [facility] [phone] [place] [id number] [place] 2021-03-04 2021-03-04 [facility] [id number] Univers 13:20:00 16:50:00 Uche Jorge 350.1.13.10 i ty of [place] 4.2.7.2.686 [facility] [id number] [address] 2020-09-28 2020-09-28 Outpatient R HUGO [facility] [id number] Univers 14:15:00 14:15:00 TONNY [id number] [facility] 2020-09-28 2020-09-28 Outpatient Chucyk ARIAS [facility] [id number] Univers 14:15:00 14:15:00 TONNY [facility] 2020-09-14 2020-09-14 Outpatient Chucky ARIAS [facility] [id number] Univers 14:15:00 14:15:00 [facility] [id number] [facility] 2020-09-14 2020-09-14 [facility] [id number] Univers 14:15:00 [facility]:15[facility] 2020-09-03 2020-09-03 Orders Doctor JOE [id number] Univers 00:00:00 00:00:00 Only Unassigned, TASHI 350.1.13.10 ity of [place] [facility] 4.2.7.2.686 Chance as [phone] [address] 2019-07-31 2019-07-31 Orders Doctor JOE [id number] Univers 00:00:00 00:00:00 Only Unassigned, TASHI 350.1.13.10 ity of [place] [facility] 4.2.7.2.686 Hcance as [id number] [facility] [address] [place] 2019-05-21 2019-05-23 Office Nataliiavicky [facility] [id number] Univers 13:35:02 12:08:47 Visit Zahira [facility] 350.1.13.10 it y of [place] 4.2.7.2.686 Chance as Professio [phone] Dc dical [facility] [address] [place] Office [address] One 2019-05-22 2019-05-22 Cotton Dispatcher 1, Adc Lab [facility] [id number] Univers 10:35:34 10:50:34 Visit Zahira King 350.1.13.10 ity of [place] 4.2.7.2.686 [place] [facility] [phone] [facility] [address] [place] 2019-05-22 2019-05-22 Orders Doctor TATYANA [id number] Univers 00:00:00 00:00:00 Only Unassigned, TASHI 350.1.13.10 ity of [place] [facility] 4.2.7.2.686 Chance as [phone] [address] 2019-05-21 2019-05-21 Telephone [facility] [id number] Univers 00:00:00 00:00:00 Rosangelinanda R [employer] 350.1.13.10 ity of [facility] 4.2.7.2.686 Chance as MATERNAL [phone] Med ical & CHILD [address] [place] [address] 2019-05-06 2019-05-06 Telephone Woodrow [facility] [id number] Univers 00:00:00 00:00:00 Roshunda R [employer] 350.1.13.10 ity of [facility] 4.2.7.2.686 Chance as MATERNAL [phone] [facility] ical & CHILD [address] [place] [address] 2019-05-01 2019-05-01 Office Woodrow [facility] [id number] Univers 10:30:08 11:09:37 Visit Ilyanda R [employer] 350.1.13.10 ity of [facility] 4.2.7.2.686 Chance as MATERNAL [phone] Med ical & CHILD [address] [place] [address] 2019-05-01 2019-05-01 Orders Doctor TATYANA 1.2.840.114 [id number] Univers 00:00:00 00:00:00 Only Unassigned, TASHI 350.1.13.10 ity of [place] [facility] 4.2.7.2.686 Chance as [phone] [address] Results Test Description Test Time Test Comments Results Result Comments Source LIPID PANEL ([id number])(TOTAL CHOLESTEROL, TRIGLYCERIDES, HDL) 19:07:48 Test Item Value Reference Range Interpretation Comme nts CHOL (test code = 7789117546) 136 mg/dL 120-200 HDL (test code = 6848311006) 40 mg/dL >50 L HDLC RATIO (test code = See_Comment [Au tomated message] The 9652809304) system which [employer] nerated this result transmit obdulio reference range: <=4.5. T he reference range was not u sed to interpret this result as normal/abnormal . TRIG (test code = 0924693189) 104 mg/dL 30-170 LDL CHOL (test code = 39001-6) 75 mg/dL See_Comment [Automated message] The system which [employer] nerated this result transmit obdulio reference range: <=160. T he reference range was not u sed to interpret this result as normal/abnormal . VLDL (test code = 0986511143) 21 mg/dL 5-60 Lab Interpretation (test code = Abnormal 37382-9) [facility]. METABOLIC PANEL (15909)2021-09-14 19:07:28 Test Item Value Reference Range Interpretation Comments NA (test code = 136 mmol/L 135-145 2374797163) K (test code = 4.0 mmol/L 3.5-5.0 6793323149) CL (test code = 107 mmol/L 98-108 2081392807) CO2 TOTAL (test code = 25 mmol/L 23-31 5307305501) AGAP (test code = 2-16 6418890275) BUN (test code = 6 mg/dL 7-23 L 3478066805) GLUCOSE (test code = 104 mg/dL 70-110 2361867209) CREATININE (test code = 0.59 mg/dL 0.50-1.04 4544245446) TOTAL BILI (test code = 0.5 mg/dL 0.1-1.9 9822591109) CALCIUM (test code = 8.4 mg/dL 8.6-10.6 L 8491931449) T PROTEIN (test code = 6.7 g/dL 6.3-8.2 4865525260) ALBUMIN (test code = 3.9 g/dL 3.5-5.0 9418091623) ALK PHOS (test code = 80 U/L 34-122 3064682364) ALTv (test code = 17 U/L 5-35 1742-6) AST(SGOT) (test code = 21 U/L 13-40 0244929661) eGFR (test code = mL/min/1.73m2 3476190046) DEBRA (test code = DEBRA) Association of Glomerular Filtration Rate (GFR) and Staging of Kidney Disease* + --+ --+ ------+| GFR (mL/min/1.73 m2) ?| With Kidney Damage ?| ?Without Kidney Damage+ --------+ --------+ +| ?>90 ?| ?Stage one ?| ? Normal ?+ ---+ ---+ -------+| ?60-89 ?| ?Stage two ?| ? Decreased GFR ? + --+ --+ ------+| ?30-59 ?| ?Stage three ?| ? Stage three ? + --+ --+ ------+| ?15-29 ?| ?Stage four ? | ? Stage four ?+ ---+ ---+ -------+| ?<15 (or dialysis) ? ?| ?Stage five ? | ? Stage five ?+ ---+ ---+ -------+ *Each stage assumes the associated GFR level has been in effect for at least three months. ?Stages 1 to 5, with or without kidney disease, indicate chronic kidney disease. Notes: Determination of stages one and two (with eGFR >59mL/min/1.73 m2) requires estimation of kidney damage for at least three months as defined by structural or functional abnormalities of the kidney, manifested by either:Pathological abnormalities or Markers of kidney damage (including abnormalities in the composition of the blood or urine or abnormalities in imaging tests). Lab Interpretation Abnormal (test code = 53697-9) [facility]:06[facility]57 Test Item Value Reference Range Interpretation Comments LIPASE (test code = 5900329222) 50 U/L 0-220 Lab Interpretation (test code = Normal 80670-3) [facility] [id number] 18:47:00 Test Item Value Reference Range Interpretation Comments POCT PREG (test code = 1605) negative On board controls acceptable with present C Line (test code = 3574) POCT PREG LOT # (test code = 3575) [id number] POCT PREG TEST DATE (test 11/15/2022 code = 3576) Lab Interpretation (test code = Normal 35346-6) [facility] [id number] 18:36:05 Test Item Value Reference Range Interpretation Comments WBC (test code = See_Comment [Automated 9990-2) message] The sy stem which generated this result transmitted reference range : 4.30 - 11.10 10*3/?L. The reference range was not used to interpret this result as normal/abnormal . RBC (test code = See_Comment [Automated 242-8) message] The sy stem which generated this result transmitted reference range : 3.93 - 5.25 10*6/?L. The reference range was not used to interpret this result as normal/abnormal . HGB (test code = 11.3 g/dL 11.6-15.0 L 718-7) HCT (test code = 35.4 % 35.7-45.2 L 4544-3) MCV (test code = 81.9 fL 80.6-95.5 787-2) MCH (test code = 26.2 pg 25.9-32.8 785-6) MCHC (test code = 31.9 g/dL 31.6-35.1 786-4) RDW-SD (test code = 42.6 fL 39.0-49.9 48540-8) RDW-CV (test code = 14.5 % 12.0-15.5 788-0) PLT (test code = See_Comment [Automated 717-3) message] The sy stem which generated this result transmitted reference range : 166 - 358 10*3/ ?L. The reference r melchor was not used to interpret this result as normal/abnormal . MPV (test code = 12.3 fL 9.5-12.9 06594-7) NRBC/100 WBC (test See_Comment [Automat ed code = 2575478942) message] The system which generated this result transmitted reference range : 0.0 - 10.0 /100 WBCs. The refer ence range was not u sed to interpret th is result as normal/abnormal . NRBC x10^3 (test code <0.01 See_Comment [Auto mated = 8158860123) message] The s ystem which generated this result transmitted reference range : 10*3/?L. The reference range was not used to interpret this result as normal/abnormal . GRAN MAT (NEUT) % 71.8 % (test code = 770-8) IMM GRAN % (test code 0.40 % = 0139847941) LYMPH % (test code = 21.2 % 736-9) MONO % (test code = 5.8 % 5905-5) EOS % (test code = 0.5 % 713-8) BASO % (test code = 0.3 % 706-2) GRAN MAT x10^3(ANC) 5.42 10*3/uL 1.88-7.09 (test code = 7905034048) IMM GRAN x10^3 (test 0.03 10*3/uL 0.00-0.06 code = 3172924115) LYMPH x10^3 (test code 1.60 10*3/uL 1.32-3.29 = 731-0) MONO x10^3 (test code 0.44 10*3/uL 0.33-0.92 = 742-7) EOS x10^3 (test code = 0.04 10*3/uL 0.03-0.39 711-2) BASO x10^3 (test code <0.03 0.01-0.07 = 704-7) Lab Interpretation Abnormal (test code = 70703-0) [facility] with [id number] 21:34:51 Test Item Value Reference Range Interpretation Comments WBC (test code = See_Comment [Automated 6690-2) message] The sy stem which generated this result transmitted reference range : 4.30 - 11.10 10*3/?L. The reference range was not used to interpret this result as normal/abnormal . RBC (test code = See_Comment [Automated 789-8) message] The sy stem which generated this result transmitted reference range : 3.93 - 5.25 10*6/?L. The reference range was not used to interpret this result as normal/abnormal . HGB (test code = 11.5 g/dL 11.6-15.0 L 718-7) HCT (test code = 35.7 % 35.7-45.2 4544-3) MCV (test code = 81.7 fL 80.6-95.5 787-2) MCH (test code = 26.3 pg 25.9-32.8 785-6) MCHC (test code = 32.2 g/dL 31.6-35.1 786-4) RDW-SD (test code = 41.2 fL 39.0-49.9 43220-4) RDW-CV (test code = 14.0 % 12.0-15.5 788-0) PLT (test code = See_Comment L [Automated 777-3) message] The sy stem which generated this result transmitted reference range : 166 - 358 10*3/ ?L. The reference r melchor was not used to interpret this result as normal/abnormal . MPV (test code = 12.4 fL 9.5-12.9 67415-7) IPF % (test code = 22.6 % 1.3-7.7 H Platelet count 2486200961) measured by fluorescence method. NRBC/100 WBC (test See_Comment [Automat ed code = 3140968421) message] The system which generated this result transmitted reference range : 0.0 - 10.0 /100 WBCs. The refer ence range was not u sed to interpret th is result as normal/abnormal . NRBC x10^3 (test code <0.01 See_Comment [Auto mated = 2718848017) message] The s ystem which generated this result transmitted reference range : 10*3/?L. The reference range was not used to interpret this result as normal/abnormal . GRAN MAT (NEUT) % 74.6 % (test code = 770-8) IMM GRAN % (test code 0.30 % = 5765804394) LYMPH % (test code = 19.0 % 736-9) MONO % (test code = 5.1 % 5905-5) EOS % (test code = 0.7 % 713-8) BASO % (test code = 0.3 % 706-2) GRAN MAT x10^3(ANC) 7.26 10*3/uL 1.88-7.09 H (test code = 2346400778) IMM GRAN x10^3 (test 0.03 10*3/uL 0.00-0.06 code = 0370578669) LYMPH x10^3 (test code 1.85 10*3/uL 1.32-3.29 = 731-0) MONO x10^3 (test code 0.50 10*3/uL 0.33-0.92 = 742-7) EOS x10^3 (test code = 0.07 10*3/uL 0.03-0.39 711-2) BASO x10^3 (test code 0.03 10*3/uL 0.01-0.07 = 704-7) PLT ESTIMATE (test Decreased Normal A code = 9317-9) Lab Interpretation Abnormal (test code = 93971-2) [facility] (ALB, T.PRO, BILI T, BU/BC, ALT, AST, ALK PHOS)2021-03-04 20:49:39 Test Item Value Reference Range Interpretation Comments TOTAL BILI (test code = 2531239177) 0.5 mg/dL 0.1-1.1 BILI UNCON (test code = 0522207731) 0.5 mg/dL 0.1-1.1 BILI CONJ (test code = 8329701970) 0.0 mg/dL 0.0-0.3 T PROTEIN (test code = 0001690625) 7.5 g/dL 6.3-8.2 ALBUMIN (test code = 6256266837) 4.3 g/dL 3.5-5.0 ALK PHOS (test code = 0295834758) 92 U/L 34-122 ALTv (test code = 1742-6) 18 U/L 5-35 AST(SGOT) (test code = 5577609379) 21 U/L 13-40 Lab Interpretation (test code = Normal 66928-2) [facility] Metabolic Panel (NA, K, CL, CO2, GLUCOSE, BUN, CREATININE, CA)2021-03-04 20:49:38 Test Item Value Reference Range Interpretation Comments NA (test code = 138 mmol/L 135-145 6679452768) K (test code = 3.5 mmol/L 3.5-5.0 6426093242) CL (test code = 104 mmol/L 98-108 4684583989) CO2 TOTAL (test code 24 mmol/L 23-31 = 4764245068) AGAP (test code = 2-16 8642236778) BUN (test code = 9 mg/dL 7-23 6374469447) GLUCOSE (test code = 96 mg/dL 70-110 7641963654) CREATININE (test code 0.69 mg/dL 0.50-1.04 = 6536608109) CALCIUM (test code = 9.1 mg/dL 8.6-10.6 9784073800) eGFR (test code = mL/min/1.73m2 4182075023) DEBRA (test code = DEBRA) Association of Glomerular Filtration Rate (GFR) and Staging of Kidney Disease* + + +- +| GFR (mL/min/1.73 m2) ?| With Kidney Damage ?| ?Without Kidney Damage+ ------+ ----+ ------+| ?>90 ?| ?Stage one ?| ? Normal ?+ -+ + -+| ?60-89 ?| ?Stage two ?| ? Decreased GFR ? + + +- +| ?30-59 ?| ?Stage three ?| ? Stage three ? + + +- +| ?15-29 ?| ?Stage four ? | ? Stage four ?+ -+ + -+| ?<15 (or dialysis) ? ?| ?Stage five ? | ? Stage five ?+ -+ + -+ *Each stage assumes the associated GFR level has been in effect for at least three months. ?Stages 1 to 5, with or without kidney disease, indicate chronic kidney disease. Notes: Determination of stages one and two (with eGFR >59mL/min/1.73 m2) requires estimation of kidney damage for at least three months as defined by structural or functional abnormalities of the kidney, manifested by either:Pathological abnormalities or Markers of kidney damage (including abnormalities in the composition of the blood or urine or abnormalities in imaging tests). [facility] [id number] 20:49:38 Test Item Value Reference Range Interpretation Comments LIPASE (test code = 8970618119) 31 U/L 0-220 Lab Interpretation (test code = Normal 62953-4) [facility]ysis2021[facility]17 20:49:07 Test Item Value Reference Range Interpretation Comments APPEARANCE (test code = Cloudy Clear A 2986079931) COLOR (test code = Yellow Yellow 0116208644) PH (test code = 4.8-8.0 3240823275) SP GRAVITY (test code = 1.003-1.030 9573574017) GLU U QUAL (test code = Normal Normal 5260481057) BLOOD (test code = 3+ Negative A 0674863860) KETONES (test code = Negative Negative 0413907074) PROTEIN (test code = 30 mg/dL Negative A 2887-8) UROBILIN (test code = Normal Normal 0312863586) BILIRUBIN (test code = Negative Negative 5589034065) NITRITE (test code = Negative Negative 1833714023) LEUK LETA (test code = 75/uL Negative A 5636745628) RBC/HPF (test code = See_Comment H [Autom ated message] 3832175806) The system [employer] generated this result transmitted ref erence range: 0 - 3 HP F. The reference range was not used to int erpret this result as normal/abnormal . WBC/HPF (test code = See_Comment H [Autom ated message] 3591672057) The system [employer] generated this result transmitted ref erence range: 0 - 5 HP F. The reference range was not used to int erpret this result as normal/abnormal . BACTERIA (test code = Few Negative A 6152038849) MUCOUS (test code = Slight Negative LPF A 5847211229) SQ EPITH (test code = HPF 9479083607) Lab Interpretation (test Abnormal code = 23217-6) [facility]PO[facility] [id number] 20:18:00 Test Item Value Reference Range Interpretation Comments POCT PREG (test code = 1605) negative On board controls acceptable with present C Line (test code = 3574) POCT PREG LOT # (test code = [id number]) POCT PREG TEST DATE (test code = 3576) Lab Interpretation (test code = Normal 95914-2) [facility] HospitalLIPID PANEL (54390)(TOTAL CHOLESTEROL, TRIGLYCERIDES, HDL)2019-05-22 17:00:00 Test Item Value Reference Range Interpretation Comments CHOL (test code = 143 mg/dL 120-200 8760960219) HDL (test code = 48 mg/dL >50 L 1383638670) HDLC RATIO (test code = See_Comment [Au tomated message] 6414610789) The system [employer] generated this result transmit obdulio reference range : <=4.5. The refe rence range was not u sed to interpret th is result as normal/abnormal . TRIG (test code = 112 mg/dL 30-170 6376986889) LDL CHOL (test code = 73 mg/dL See_Comment [Auto mated message] 73791-1) The system [employer] generated this result transmit obdulio reference range : <=160. The refe rence range was not u sed to interpret th is result as normal/abnormal . VLDL (test code = 22 mg/dL 5-60 7073443166) Lab Interpretation (test Abnormal code = 07096-3) [facility] Hospital[facility]. METABOLIC PANEL (39220)2019-05-22 16:59:00 Test Item Value Reference Range Interpretation Comments NA (test code = 147 mmol/L 135-145 H 8696841022) K (test code = 4.7 mmol/L 3.5-5 9154613328) CL (test code = 109 mmol/L 98-108 H 2770323789) CO2 TOTAL (test code = 29 mmol/L 23-31 4391319473) AGAP (test code = 2-16 2399961554) BUN (test code = 9 mg/dL 7-23 0226267535) GLUCOSE (test code = 94 mg/dL 70-110 7806540389) CREATININE (test code = 0.71 mg/dL 0.5-1.04 8422896248) TOTAL BILI (test code = 0.2 mg/dL 0.1-1.3 4822466243) CALCIUM (test code = 9.4 mg/dL 8.6-10.6 8766971203) T PROTEIN (test code = 6.9 g/dL 6.3-8.2 6453450100) ALBUMIN (test code = 4.2 g/dL 3.5-5 1487870308) ALK PHOS (test code = 67 U/L 34-122 9227993021) ALT(SGPT) (test code = 21 U/L 9-51 2576280108) AST(SGOT) (test code = 18 U/L 13-40 2538268740) eGFR Calculation mL/min/1.73m2 (Non-) (test code = 4046102865) eGFR Calculation mL/min/1.73m2 () (test code = 2058538437) DEBRA (test code = DEBRA) Association of Glomerular Filtration Rate (GFR) and Staging of Kidney Disease*+ + + +| GFR (mL/min/1.73 m2)?| With Kidney Damage?|?Without Kidney Damage+ --------+ --------+ +|?>90?|?S tage one?|? Normal?+ ---------+ ---------+ +|?60-89? |?Stage two?|? Decreased GFR? + --+ --+ ------+|?30-59?|?Stage three?|? Stage three? + --+ --+ ------+|?15-29?|?Stage four? |? Stage four?+ -------+ -------+ +|?<15 (or dialysis)?|?Stage five? |? Stage five?+ -------+ -------+ +*Each stage assumes the associated GFR level has been in effect for at least three months.?Stages 1 to 5, with or without kidney disease, indicate chronic kidney disease.Notes: Determination of stages one and two (with eGFR >59mL/min/1.73 m2) requires estimation of kidney damage for at least three months as defined by structural or functional abnormalities of the kidney, manifested by either:Pathological abnormalities or Markers of kidney damage (including abnormalities in the composition of the blood or urine or abnormalities in imaging tests). Lab Interpretation Abnormal (test code = 57118-1) [facility] WITH [id number] 16:20:00 Test Item Value Reference Range Interpretation Comments WBC (test code = See_Comment [Automated 0790-2) message] The sy stem which generated this result transmitted reference range : 4.30 - 11.10 10*3/?L. The reference range was not used to interpret this result as normal/abnormal . RBC (test code = See_Comment [Automated 789-8) message] The sy stem which generated this result transmitted reference range : 3.93 - 5.25 10*6/?L. The reference range was not used to interpret this result as normal/abnormal . HGB (test code = 12.1 g/dL 11.6-15 718-7) HCT (test code = 36.6 % 35.7-45.2 4544-3) MCV (test code = 88.2 fL 80.6-95.5 787-2) MCH (test code = 29.2 pg 25.9-32.8 785-6) MCHC (test code = 33.1 g/dL 31.6-35.1 786-4) RDW-SD (test code = 42.5 fL 39-49.9 70092-8) RDW-CV (test code = 13.2 % 12-15.5 788-0) PLT (test code = See_Comment [Automated 777-3) message] The sy stem which generated this result transmitted reference range : 166 - 358 10*3/ ?L. The reference r melchor was not used to interpret this result as normal/abnormal . MPV (test code = 12.5 fL 9.5-12.9 45659-2) NRBC/100 WBC (test See_Comment [Automat ed code = 4644002628) message] The system which generated this result transmitted reference range : 0.0 - 10.0 /100 WBCs. The refer ence range was not u sed to interpret th is result as normal/abnormal . NRBC x10^3 (test code <0.01 See_Comment [Auto mated = 6263567656) message] The s ystem which generated this result transmitted reference range : 10*3/?L. The reference range was not used to interpret this result as normal/abnormal . GRAN MAT (NEUT) % 60.6 % (test code = 770-8) IMM GRAN % (test code 0.20 % = 1877489281) LYMPH % (test code = 31.6 % 736-9) MONO % (test code = 5.9 % 5905-5) EOS % (test code = 1.5 % 713-8) BASO % (test code = 0.2 % 706-2) GRAN MAT x10^3(ANC) 3.32 10*3/uL 1.88-7.09 (test code = 0041260495) IMM GRAN x10^3 (test <0.03 0-0.06 code = 4669661067) LYMPH x10^3 (test code 1.73 10*3/uL 1.32-3.29 = 731-0) MONO x10^3 (test code 0.32 10*3/uL 0.33-0.92 L = 742-7) EOS x10^3 (test code = 0.08 10*3/uL 0.03-0.39 711-2) BASO x10^3 (test code <0.03 0.01-0.07 = 704-7) Lab Interpretation Abnormal (test code = 24421-6) [facility] [id number] 15:55:00 Test Item Value Reference Range Interpretation Comments POCT PREG (test code = 1605) Negative On board controls acceptable with C Yes Line (test code = 3574) POCT PREG LOT # (test code = 3575) POCT PREG TEST DATE (test code = 3576) [facility] [id number] 15:55:00 Test Item Value Reference Range Interpretation Comments POCT PREG (test code = 1605) Negative On board controls acceptable with C Yes Line (test code = 3574) POCT PREG LOT # (test code = 3575) POCT PREG TEST DATE (test code = 3576) [facility]"
[2022-01-15 17:34] LABS: Urine Blood 3+ (Negative); Urine Glucose Negative (Negative); Urine Protein Negative (Negative); Urine Specific Gravity <=1.005 (1.005-1.030)
[2022-01-15 17:36] LABS: Absolute Lymphocytes (CBC) 1.9 K/uL (0.7-4.9); Hematocrit 36.6 % (36.0-45.0); Lymphocytes % 28.9 % (15.3-44.8); MPV 9.9 fL (7.6-11.3); RBC Red Blood Cell Count 4.49 M/uL (3.86-4.86)
[2022-01-15] MEDS ORDERED: MORPHINE 4 MG/ML SYR ONE (17:37)
[2022-01-15] MEDS ORDERED: ONDANSETRON 4 MG/2 ML VIAL ONE (17:37)
[2022-01-15 17:55] LABS: BUN Blood Urea Nitrogen 7 mg/dL (7-18); Bicarbonate 25 mmol/L (21-32); Glucose Level 95 mg/dL (74-106); Potassium 3.3 mmol/L (3.5-5.1); Sodium Level 139 mmol/L (136-145)
[2022-01-15 17:56] LABS: HCG, Quantitative < 1 mIU/mL (1-3)
[2022-01-15 18:03] LABS: Urine Bacteria <20 /HPF (<20)
--- NOTE | 2022-01-15 18:35 | RAD REPORT ---
EXAM DESCRIPTION: CT - Abdomen Pelvis W Contrast - 01/15/2022 6:24 pm CLINICAL HISTORY: Abdominal pain, acute, nonlocalized COMPARISON: Abdomen Pelvis W Contrast dated 07/20/2018 TECHNIQUE: Biphasic, helical CT imaging of the abdomen and pelvis was performed following 100 ml non -ionic IV contrast. No oral contrast administered. All CT scans are performed using dose optimization technique as appropriate and may include automated exposure control or mA/KV adjustment according to patient size. FINDINGS: No suspicious findings in the lung bases. The liver, spleen, and pancreas show no suspicious findings. Gallbladder is absent. No abnormal bilia ry tree dilatation. Symmetric renal function is seen with no hydronephrosis or suspicious renal mass. No pyelonephritis o r acute parenchymal process. No bladder abnormalities. No adrenal abnormalities. Uterus and ovaries s how no acute findings. A 2 centimeter nonhemorrhagic, unruptured right ovarian cyst is present. No dilated bowel loops or bowel wall thickening. No appendicitis. No acute GI process. No free air, f ree fluid or inflammatory stranding. No hernia, mass or bulky lymphadenopathy. A few small inguinal lymph nodes are present. No suspicious bony findings. IMPRESSION: Contrast enhanced CT abdomen and pelvis showing no significant or suspicious finding.
--- NOTE | 2022-01-15 20:29 | ER ---
Nurse's Notes [facility] Name: Suzy Hammer Age: 36 yrs Sex: Female : 1985 Arrival Date: 01/15/2022 Time: 16:41 Bed 6 Private MD: Diagnosis: Abnormal uterine and vaginal bleeding, unspecified;Other ovarian cysts;UTI/ Urinary tract infection, site not specified Presentation: 01/15 16:51 Chief complaint: Patient states: "My period ended in th middle of December and then I ab2 started again a week later. 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 Coronavirus screen: Vaccine status: Patient reports receiving the 2nd dose of the covid vaccine. Client denies travel out of the [place] in the last 14 days. At this time, the client does not indicate any symptoms associated with coronavirus-19. Ebola Screen: Patient negative for fever greater than or equal to 101.5 degrees Fahrenheit, and additional compatible Ebola Virus Disease symptoms Patient denies exposure to infectious person. Patient denies travel to an Ebola-affected area in the 21 days before illness onset. No symptoms or risks identified at this time. Initial Sepsis Screen: Does the patient meet any 2 criteria? No. Patient's initial sepsis screen is negative. Does the patient have a suspected source of infection? No. Patient's initial sepsis screen is negative. Risk Assessment: Do you want to hurt yourself or someone else? Patient reports no desire to harm self or others. Onset of symptoms is unknown. 16:51 Method Of Arrival: Ambulatory ab2 16:51 Acuity: YULIANA 3 ab2 Triage Assessment: 16:53 General: Appears in no apparent distress. uncomfortable, Behavior is calm, cooperative, ab2 appropriate for age. Pain: Complains of pain in left upper quadrant and left lower quadrant. Neuro: Level of Consciousness is awake, alert, obeys commands, Oriented to person, place, time, situation, Appropriate for age. Cardiovascular: No deficits noted. Denies chest pain, shortness of breath, Patient's skin is warm and dry. Respiratory: Airway is patent Respiratory effort is even, unlabored, Respiratory pattern is regular, symmetrical. : Reports vaginal bleeding that is with clots, light flow. Derm: Skin is intact, is healthy with good turgor, Skin is pink, warm \\T\\ dry. 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 - Social history:: Smoking status: Patient reports the use of cigarette tobacco products, denies chronic smoking, but will smoke occasionally. Screenin:44 Abuse screen: Denies threats or abuse. Denies injuries from another. Nutritional jl7 screening: No deficits noted. Tuberculosis screening: No symptoms or risk factors identified. Fall Risk IV access (20 points). Assessment: 17:25 General: Appears in no apparent distress. uncomfortable, Behavior is calm, cooperative, jl7 appropriate for age. Pain: Complains of pain in right lower quadrant and left lower quadrant Pain currently is 8 out of 10 on a pain scale. Quality of pain is described as crampy, Pain began 1.5 weeks Is continuous. Neuro: Level of Consciousness is awake, alert, obeys commands, Oriented to person, place, time, situation. Cardiovascular: Patient's skin is warm and dry. Respiratory: Airway is patent Respiratory effort is even, unlabored, Respiratory pattern is regular, symmetrical. GI: Patient currently denies diarrhea, nausea, vomiting. : Reports vaginal bleeding that is. Derm: Skin is pink, warm \\T\\ dry. 20:00 Reassessment: Patient and/or family updated on plan of care and expected duration. Pain ag7 level reassessed. Patient is alert, oriented x 3, equal unlabored respirations, skin warm/dry/pink. Patient states symptoms have improved. Pain: Complains of pain in left lower quadrant Pain does not radiate. Pain currently is 8 out of 10 on a pain scale. Quality of pain is described as sharp, Pain began suddenly, Is continuous, Alleviated by nothing. Vital Signs: 16:51 BP 132 / 95; Pulse 69; Resp 17; Temp 98.7; Pulse Ox 99% on R/A; Weight 105.69 kg; ab2 Height 5 ft. 3 in. (160.02 cm); Pain 8/10; 17:44 BP 118 / 87; Pulse 62; Resp 15; Pulse Ox 99% ; jl7 18:00 BP 126 / 65; Pulse 83; Resp 15; Pulse Ox 96% ; jl7 20:00 BP 106 / 71; Pulse 60; Resp 16; Pulse Ox 99% on R/A; lp1 16:51 Body Mass Index 41.27 (105.69 kg, 160.02 cm) ab2 ED Course: 16:41 Patient arrived in ED. as 16:53 Mohinder Duque MD is Attending Physician. kdr 16:53 Triage completed. ab2 16:54 Arm band placed on right wrist. ab2 17:12 Roby Ruiz, RN is Primary Nurse. jl7 17:35 Initial lab(s) drawn, by md, sent to lab. Urine collected: clean catch specimen, jl7 cloudy. Inserted saline lock: 22 gauge in left antecubital area, using aseptic technique. Blood collected. 17:44 Patient has correct armband on for positive identification. Bed in low position. Call jl7 light in reach. Side rails up X 1. Pulse ox on. NIBP on. 18:26 CT Abd/Pelvis - IV Contrast Only In Process Unspecified. EDMS 20:07 Primary Nurse role handed off by Roby Ruiz, THERESA 9 20:09 Attending Physician role handed off by Mohinder Duque MD 7 20:09 Ezar Owen MD is Attending Physician. 7 20:28 Lulu Ambrocio MD is Referral Physician. mh7 20:39 Zuleima Drake, THERESA is Primary Nurse. lp1 20:39 No provider procedures requiring assistance completed. lp1 20:48 IV discontinued, intact, bleeding controlled, No redness/swelling at site. Pressure ag7 dressing applied. Administered Medications: 17:35 Drug: morphine 4 mg Route: IVP; Site: right antecubital; jl7 17:35 Drug: Zofran (Ondansetron) 4 mg Route: IVP; Site: right antecubital; jl7 Outcome: 20:28 Discharge ordered by . mh7 20:47 Discharged to home ambulatory. ag7 20:47 Condition: stable 20:47 Discharge instructions given to patient, Instructed on discharge instructions, follow up and referral plans. medication usage, Demonstrated understanding of instructions, follow-up care, medications, Prescriptions given X 1. 20:48 Patient left the ED. ag7 Signatures: Dispatcher [employer] EDMS Mohinder Duque MD MD kdr Martinez, Amelia as Pena, Laura, RN RN lp1 Dejan Souza RN RN jb4 Roby Ruiz RN RN jl7 Ezra Owen MD MD 7 Carlo, Samantha 9 Saroj Valentino 2 Elisabeth Rivero RN RN ag7 Corrections: (The following items were deleted from the chart) 20:28 19:00 Reassessment: Patient and/or family updated on plan of care and expected ag7 duration. Pain level reassessed. Patient is alert, oriented x 3, equal unlabored respirations, skin warm/dry/pink. Patient states symptoms have improved. jb4 20:28 19:00 Pain: Complains of pain in left lower quadrant Pain does not radiate. Pain ag7 currently is 8 out of 10 on a pain scale. Quality of pain is described as sharp, Pain began suddenly, Is continuous, Alleviated by nothing. jb4
--- NOTE | 2022-01-15 20:29 | EDPHYS ---
Physician Documentation [facility] Name: Suzy Hammer Age: 36 yrs Sex: Female : 1985 Arrival Date: 01/15/2022 Time: 16:41 Bed 6 Private MD: ED Physician Ezra Owen HPI: 01/15 18:27 This 36 yrs old Female presents to ER via Ambulatory with complaints of kdr Vaginal Bleeding. 18:28 Patient states that her period ended in the middle of December however her bleeding began kdr again about a week later. 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 The pain is in her epigastric to left upper quadrant area and down then into her left lower quadrant. She has not had anything like this previously. She does not appear toxic or acutely ill in bed. She did have recurrence of the pain after the physical exam. Pain described as sharp stabbing but transient. 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 - Social history:: Smoking status: Patient reports the use of cigarette tobacco products, denies chronic smoking, but will smoke occasionally. ROS: 18:45 Constitutional: Negative for fever, chills, and weight loss, Eyes: Negative for injury, kdr pain, redness, and discharge, ENT: Negative for injury, pain, and discharge, Neck: Negative for injury, pain, and swelling, Cardiovascular: Negative for chest pain, palpitations, and edema, Respiratory: Negative for shortness of breath, cough, wheezing, and pleuritic chest pain, Abdomen/GI: Negative for abdominal pain, nausea, vomiting, diarrhea, and constipation, Back: Negative for injury and pain, MS/Extremity: Negative for injury and deformity, Skin: Negative for injury, rash, and discoloration, Neuro: Negative for headache, weakness, numbness, tingling, and seizure activity. Psych: Negative for depression, anxiety, suicide ideation, homicidal ideation, and hallucinations, Allergy/Immunology: Negative for hives, rash, and allergies, Endocrine: Negative for neck swelling, polydipsia, polyuria, polyphagia, and marked weight changes, Hematologic/Lymphatic: Negative for swollen nodes, abnormal bleeding, and unusual bruising. 18:45 : Positive for vaginal bleeding, Negative for injury or acute deformity, urinary symptoms, hematuria, flank pain, burning with urination, vaginal discharge, vaginal itching. Exam: 18:45 Constitutional: This is a well developed, well nourished patient who is awake, alert, kdr and in no acute distress. Head/Face: Normocephalic, atraumatic. Eyes: Pupils equal round and reactive to light, extra-ocular motions intact. Lids and lashes normal. Conjunctiva and sclera are non-icteric and not injected. Cornea within normal limits. Periorbital areas with no swelling, redness, or edema. Neck: Trachea midline, no thyromegaly or masses palpated, and no cervical lymphadenopathy. Supple, full range of motion without nuchal rigidity, or vertebral point tenderness. No Meningismus. Chest/axilla: Normal chest wall appearance and motion. Nontender with no deformity. No lesions are appreciated. Cardiovascular: Regular rate and rhythm with a normal S1 and S2. No gallops, murmurs, or rubs. Normal PMI, no JVD. No pulse deficits. Respiratory: Lungs have equal breath sounds bilaterally, clear to auscultation and percussion. No rales, rhonchi or wheezes noted. No increased work of breathing, no retractions or nasal flaring. Back: No spinal tenderness. No costovertebral tenderness. Full range of motion. Skin: Warm, dry with normal turgor. Normal color with no rashes, no lesions, and no evidence of cellulitis. MS/ Extremity: Pulses equal, no cyanosis. Neurovascular intact. Full, normal range of motion. Neuro: Awake and alert, GCS 15, oriented to person, place, time, and situation. Cranial nerves II-XII grossly intact. Motor strength 5/5 in all extremities. Sensory grossly intact. Cerebellar exam normal. Normal gait. Psych: Awake, alert, with orientation to person, place and time. Behavior, mood, and affect are within normal limits. 18:45 Abdomen/GI: Inspection: obese Bowel sounds: active, all quadrants, Palpation: soft, mild abdominal tenderness, in the epigastric area, left upper quadrant and left lower quadrant. Vital Signs: 16:51 BP 132 / 95; Pulse 69; Resp 17; Temp 98.7; Pulse Ox 99% on R/A; Weight 105.69 kg; ab2 Height 5 ft. 3 in. (160.02 cm); Pain 8/10; 17:44 BP 118 / 87; Pulse 62; Resp 15; Pulse Ox 99% ; jl7 18:00 BP 126 / 65; Pulse 83; Resp 15; Pulse Ox 96% ; jl7 20:00 BP 106 / 71; Pulse 60; Resp 16; Pulse Ox 99% on R/A; lp1 16:51 Body Mass Index 41.27 (105.69 kg, 160.02 cm) ab2 MDM: 18:45 Data reviewed: vital signs, nurses notes, lab test result(s), radiologic studies. kdr Counseling: I had a detailed discussion with the patient and/or guardian regarding: the historical points, exam findings, and any diagnostic results supporting the discharge/admit diagnosis, lab results, radiology results, the need for outpatient follow up. 20:27 Differential diagnosis: appendicitis, bowel obstruction, diverticulitis, Ectopic mh7 , Endometriosis, gastritis, gastroesophageal reflux disease, non-specific abd pain, Pyelonephritis, urinary tract infection. Data interpreted: Pulse oximetry: on room air is 96 %. Interpretation: normal. Response to treatment: the patient's symptoms have resolved after treatment, the patient's blood pressure is in an acceptable range, mental status has returned to baseline, the patient no longer shows bradycardia, the patient is not short of breath, the patient is not tachycardic, the patient's pain is gone, the patient's temperature has normalized. 20:28 Patient medically screened. [facility] 01/15 16:54 Order name: Abo/rh Typing; Complete Time: 20:09 kdr 01/15 16:54 Order name: Basic Metabolic Panel; Complete Time: 17:59 kdr 01/15 16:54 Order name: CBC with Diff; Complete Time: 17:59 kdr 01/15 16:54 Order name: Quantitative Hcg; Complete Time: 17:59 kdr 01/15 17:34 Order name: Urine Dipstick-Ancillary; Complete Time: 17:59 EDMS 01/15 17:45 Order name: Urine Microscopic Only; Complete Time: 20:09 jl7 01/15 16:54 Order name: IV Saline Lock; Complete Time: 17:47 [facility] 01/15 16:54 Order name: Labs collected and sent; Complete Time: 17:47 kdr 01/15 16:54 Order name: NPO; Complete Time: 17:47 kdr 01/15 16:54 Order name: Urine Dipstick-Ancillary (obtain specimen); Complete Time: 17:47 kdr 01/15 18:01 Order name: CT Abd/Pelvis - IV Contrast Only; Complete Time: 20:09 kdr 01/15 18:06 Order name: Urine Culture EDMS Administered Medications: 17:35 Drug: morphine 4 mg Route: IVP; Site: right antecubital; jl7 17:35 Drug: Zofran (Ondansetron) 4 mg Route: IVP; Site: right antecubital; jl7 Disposition Summary: 01/15/22 20:28 Discharge Ordered Location: Home [facility] Problem: new [facility] Symptoms: have improved [facility] Condition: Stable [facility] Diagnosis - Abnormal uterine and vaginal bleeding, unspecified 7 - Other ovarian cysts 7 - UTI/ Urinary tract infection, site not specified [facility] Followup: [facility] - With: Private Physician - When: 1 - 2 days - Reason: Worsening of condition, Recheck today's complaints, Continuance of care, Re-evaluation by your physician Followup: [facility] - With: Lulu Ambrocio MD - When: 1 - 2 days - Reason: Worsening of condition, Recheck today's complaints Discharge Instructions: - Discharge Summary Sheet [facility] - Abnormal Uterine Bleeding mh7 - Urinary Tract Infection, Adult, [id number] [facility] - Ovarian Cyst, [id number] [facility] Forms: - Medication Reconciliation Form [facility] - Thank You Letter [facility] - Antibiotic Education [facility] - Prescription Opioid Use [facility] Prescriptions: - Cipro 500 mg Oral Tablet - take 1 tablet by ORAL route every 12 hours for 7 days; 14 tablet; Refills: 0, 7 Product Selection Permitted Signatures: Dispatcher [employer] EDMS Mohinder Duque MD MD kdr Leal, Jahala RN RN jl7 Ezra Owen MD MD 7 Saroj Valentino2
[2022-01-15 20:56] VITALS: TEMP 98.7
[2022-01-15 21:04] VITALS: BP 106/71; O2SAT 99
== END 2022-01-15 20:48 | disposition home or self-care (01) ==
LOC: ER 16:38
DX: N83.299 Other ovarian cyst, unspecified side (principal); N39.0 Urinary tract infection, site not specified; F17.210 Nicotine dependence, cigarettes, uncomplicated
CPT/HCPCS: 87088; 85025; 87086; 80048; 36415; 86900; 86901; 84702; 74177; 96375; 96374; 99284; Q9967; J2405; 81003; 81015

== ENCOUNTER 2022-05-06 07:53 | Emergency (ER) | payer OTHER ==
--- OUTSIDE RECORDS SUMMARY | 2022-05-06 08:07 | XMS REPORT | Continuity of Care Document ---
:1985 Author Organization [facility] t Address [address] [place] [address] Care Team Providers Name Role Phone ALEYDA VICTORIA Primary Care Physician Unavailable INGA PELAEZ Attending Clinician Unavailable Inga Pelaez MD Attending Clinician Doctor Unassigned, [place] Attending Clinician Unavailable Aleyda Lozada Attending Clinician INGA PELAEZ Admitting Clinician Unavailable Payers Payer Name Policy Type Policy Number Effective Date Expiration Date [facility] [id number] 2019 [facility] MEDICAID 00:00:00 Problems Condition Condition Condition Status Onset Resolution Last Treating Co mments Source Name Details Category Date Date Treatment Clinician Date Gastroesop Gastroesop Disease Active 2019-0 U nivers hageal hageal 9-03 ity of reflux reflux 00:00: [place] disease disease 00 Medical without without Branch esophagiti esophagiti s s Abdominal Abdominal Disease Active 2019-0 Uni vers pain, pain, 8-14 ity of generalize generalize 00:[place] 00 Medical Branch Intercosta Intercosta Disease Active 2019-0 U nivers l pain l pain 8-14 ity of 00:00: [place] 00 Medical Branch Class 3 Class 3 Disease Active 2019-0 Univers severe severe 8-14 ity of obesity obesity 00:00: [place] with body with body 00 [facility] herve mass index mass index Br anch (BMI) of (BMI) of 40.0 to 40.0 to 44.9 in 44.9 in adult, adult, unspecifie unspecifie d obesity d obesity type, type, unspecifie unspecifie d whether d whether serious serious comorbidit comorbidit y present y present Needs flu Needs flu Disease Active Uni vers shot shot 1-07 ity of 00:00: [place] 00 Medical Branch Morbid Morbid Disease Active Univers obesity obesity 2-10 ity of 00:00: [place] [address] Medical [place] Allergies, Adverse Reactions, Alerts Allergy Allergy Status Severity Reaction(s) Onset Inactive Treating Comm ents Source Name Type Date Date Clinician NO KNOWN Drug Active Univers ALLERGIE Class ity of S [facility] Social History Social Habit Start Date Stop Date Quantity Comments Source History [facility] o f Alcohol Std [place] Medical Drinks Branch History [facility] o f Alcohol Binge [place] Medic al Branch Exposure to 2022-01-18 2022-01-28 Not sure University of SARS-CoV-2 00:00:00 11:09:00 [facility] (event) Branch Cigarettes smoked 2022-01-27 2022-01-27 Univers ity of current (pack per 00:00:00 00:00:00 [facility]) - Reported Branch Cigarette 2022-01-27 2022-01-27 University of pack-years 00:00:00 00:00:00 [facility] Alcohol intake 2022-01-27 2022-01-27 Current drinker of Un iversity of 00:00:00 00:00:00 alcohol (finding) [facility] Tobacco use and 2022-01-27 2022-01-27 Never used Universit y of exposure 00:00:00 00:00:00 [facility] Alcohol Comment 2022-01-27 2022-01-27 occasionally Univers ity of 00:00:00 00:00:00 [facility] History of 2020-09-18 Cigarette Smoker Universi ty of tobacco use 00:00:00 [facility] History SDOH 2019-05-01 2019-05-01 3 University o f Alcohol Frequency 00:00:00 00:00:00 [facility] Sex Ass[birth year] At [birth year] Universit y of 00:00:00 00:00:00 [facility] Smoking Status Start Date Stop Date Source Former smoker 2022-01-27 00:00:00 2022-01-27 00:00:00 [facility] Medications Ordered Filled Start Stop Current Ordering Indication Dosage Frequency Signature Comments Components Source Medication Medication Date Date Medication? Clinician (SIG) Name Name metroNIDAZO Yes [id number] 500mg Take 1 Univers LE 500 mg 5-13 tablet by ity o f tablet 00:00: mouth [place] 00 every 12 Medical (twelve) Branch hours. metroNIDAZO 2021-0 Yes [id number] 500mg Take 1 Univers LE 500 mg 5-13 tablet by ity o f tablet 00:00: mouth [place] 00 every 12 Medical (twelve) Branch hours. metroNIDAZO 2021-0 Yes [id number] 500mg Take 1 Univers LE 500 mg 5-13 tablet by ity o f tablet 00:00: mouth [place] 00 every 12 Medical (twelve) Branch hours. nystatin Yes [id number] Apply to Univers 100,000 5-12 area(s) 2 ity of unit/gram 00:00: (two) [place] powder 00 times Medical daily. Use Branch for 2 weeks nystatin 2021-0 Yes [id number] Apply to Univers 100,000 5-12 area(s) 2 ity of unit/gram 00:00: (two) [place] powder 00 times Medical daily. Use Branch for 2 weeks nystatin 2021-0 Yes [id number] Apply to Univers 100,000 5-12 area(s) 2 ity of unit/gram 00:00: (two) [place] powder 00 times Medical daily. Use Branch for 2 weeks nystatin 2021-0 Yes [id number] Apply to Univers 100,000 5-12 area(s) 2 ity of unit/gram 00:00: (two) [place] powder 00 times Medical daily. Use Branch for 2 weeks nystatin 2021-0 Yes [id number] Apply to Univers 100,000 5-12 area(s) 2 ity of unit/gram 00:00: (two) [place] powder 00 times Medical daily. Use Branch for 2 weeks nystatin 2021-0 Yes [id number] Apply to Univers 100,000 5-12 area(s) 2 ity of unit/gram 00:00: (two) [place] powder 00 times Medical daily. Use Branch for 2 weeks phenazopyri 2020-09- No [id number] 200mg Take 1 Univers dine 200 mg 2-28 05-12 tablet by it y of tablet 00:00: 00:00 mouth 3 [place] 00 :00 (three) Medical times Branch daily. phenazopyri 2020-09- No [id number] 200mg Take 1 Univers dine 200 mg 2-28 05-12 tablet by it y of tablet 00:00: 00:00 mouth 3 [place] 00 :00 (three) Medical times Branch daily. pantoprazol 2021- No [id number] 40mg Take 1 Univers e 40 mg EC 6-17 05-12 tablet by ity of tablet 00:00: 00:00 mouth [place] 00 :00 daily. Medical Branch ondansetron 2021- No [id number] 4mg Take 1 Univers 4 mg 6-17 05-12 tablet by ity of disintegrat 00:00: 00:00 [place] tablet 00 :00 every 4 Medica l (four) Branch hours as needed for Nausea and Vomiting (N/V). Nitrofurant 2021- No [id number] 100mg Take 1 Univers oin&Nit. 6-17 05-12 capsule by ity of Macrocryst 00:00: 00:00 mouth 2 [place] as (MACROBID) 00 :00 (two) Medical 100 mg times Branch capsule daily. sucralfate 2021- No [id number] 1g Take 1 Univers 1 gram 6-17 05-12 tablet by ity of tablet 00:00: 00:00 mouth [place] 00 :00 before Medical meals and Branch at bedtime. pantoprazol 2021- No [id number] 40mg Take 1 Univers e 40 mg EC 6-17 05-12 tablet by ity of tablet 00:00: 00:00 mouth [place] 00 :00 daily. Medical Branch ondansetron 2021- No [id number] 4mg Take 1 Univers 4 mg 6-17 05-12 tablet by ity of disintegrat 00:00: 00:00 [place] tablet 00 :00 every 4 Medica l (four) Branch hours as needed for Nausea and Vomiting (N/V). Nitrofurant 2021- No [id number] 100mg Take 1 Univers oin&Nit. 03-04 05-12 capsule by ity of Macrocryst 00:00: 00:00 mouth 2 [place] (MACROBID) 00 :00 (two) Medical 100 mg times Branch capsule daily. sucralfate 2021- No [id number] 1g Take 1 Univers 1 gram 03-04 05-12 tablet by ity of tablet 00:00: 00:00 mouth [place] 00 :00 before Medical meals and Branch at bedtime. traMADOL 50 2021- No [id number] 50mg Take 1 Univers mg tablet 03-12 05-12 tablet by ity of 00:00: 00:00 mouth [place] 00 :00 every 6 Medical (six) Branch hours as needed for Pain (scale 4-6) or Pain (scale 7-10). traMADOL 50 2021- No [id number] 50mg Take 1 Univers mg tablet 03-12 05-12 tablet by ity of 00:00: 00:00 mouth [place] 00 :00 every 6 Medical (six) Branch hours as needed for Pain (scale 4-6) or Pain (scale 7-10). proMETHazin 2016-09 No 25mg Take 1 Uni vers e 25 mg 09-2612 tablet by ity of tablet 00:00: 00:00 mouth [place] 00 :00 every 6 Medical (six) Branch hours as needed for Nausea and Vomiting (N/V). proMETHazin 2016-09 No 25mg Take 1 Uni vers e 25 mg 09-26-12 tablet by ity of tablet 00:00: 00:00 mouth [place] 00 :00 every 6 Medical (six) Branch hours as needed for Nausea and Vomiting (N/V). Immunizations Ordered Filled Immunization Date Status Comments [facility] e Immunization Name Name Pneumococcal 2014-11-18 Completed University o f Polysaccharide, 00:00:00 [place] Med ical PPSV23 (PNEUMOVAX) Branch Influenza Virus 2014-11-18 Completed Universit y of Vaccine Quad IM 3+ 00:00:00 [facility] Branch Pneumococcal 2014-11-18 Completed University o f Polysaccharide, 00:00:00 [place] Med ical PPSV23 (PNEUMOVAX) Branch Influenza Virus 2014-11-18 Completed Universit y of Vaccine Quad IM 3+ 00:00:00 [facility] Pneumococcal 2014-11-18 Completed University o f Polysaccharide, 00:00:00 [place] Med ical PPSV23 (PNEUMOVAX) Branch Influenza Virus 2014-11-18 Completed Universit y of Vaccine Quad IM 3+ 00:00:00 [facility] Pneumococcal 2014-11-18 Completed University o f Polysaccharide, 00:00:00 [place] Med ical PPSV23 (PNEUMOVAX) Branch Influenza Virus 2014-11-18 Completed Universit y of Vaccine Quad IM 3+ 00:00:00 [facility] Pneumococcal 2014-11-18 Completed University o f Polysaccharide, 00:00:00 [place] Med ical PPSV23 (PNEUMOVAX) Branch Influenza Virus 2014-11-18 Completed Universit y of Vaccine Quad IM 3+ 00:00:00 [facility] Pneumococcal 2014-11-18 Completed University o f Polysaccharide, 00:00:00 [place] Med ical PPSV23 (PNEUMOVAX) [place] Influenza Virus 2014-11-18 Completed Universit y of Vaccine Quad IM 3+ 00:00:00 [facility] TDAP 2012-05-19 Completed University of 00:00:00 [facility] TDAP 2012-05-19 Completed University of 00:00:00 [facility] TDAP 2012-05-19 Completed University of 00:00:00 [facility] TDAP 2012-05-19 Completed University of 00:00:00 [facility] TDAP 2012-05-19 Completed University of 00:00:00 [facility] TDAP 2012-05-19 Completed University of 00:00:00 [facility] Rubella 2010-06-29 Completed University of 00:00:00 [facility] Rubella 2010-06-29 Completed University of 00:00:00 [facility] Rubella 2010-06-29 Completed University of 00:00:00 [facility] Rubella 2010-06-29 Completed University of 00:00:00 [facility] Rubella 2010-06-29 Completed University of 00:00:00 [facility] Rubella 2010-06-29 Completed University of 00:00:00 [facility] Vital Signs Vital Name Observation Time Observation Value Comments Source Systolic blood 2022-01-27 14:23:00 108 mm[Hg] Univer sity of pressure [facility] Diastolic blood 2022-01-27 14:23:00 71 mm[Hg] Unive rsity of pressure [facility] Heart rate 2022-01-27 14:23:00 86 /min [facility] Body temperature 2022-01-27 14:23:00 36.83 [place] Univ ersity [facility] Body height 2022-01-27 14:23:00 160 cm [facility] Body weight 2022-01-27 14:23:00 104.418 kg [facility] BMI 2022-01-27 14:23:00 40.78 kg/m2 [facility] Procedures Procedure Date / Time Performed Performing Clinician Sourc e ASSIGNMENT OF BENEFITS 2022-02-04 19:04:00 Doctor Unassflores, No [facility] Encounters Start End Encounter Admission Attending Care Care Encounter Source Date/Time Date/Time Type Type Clinicians Facility Department ID 2022-03-11 2022-03-11 Outpatient R [facility] [id number] Univers 15:45:00 15:45:00 [id number] ity [facility] 2022-02-04 2022-02-04 Outpatient R [facility] [id number] Univers 14:04:28 23:59:00 INGA ity [facility] 2022-02-04 2022-02-04 [facility] [id number] Univers 14:00:00 23:59:00 Encounter Inga FRANCO [id number] ity [facility] [id number] [facility] [id number] [facility] [address] [place] 2022-02-04 2022-02-04 Outpatient R [facility] [id number] Univers 00:00:00 00:00:00 INGA [id number] ity [facility] 2022-02-04 2022-02-04 Orders Doctor JOE [id number] Univers 00:00:00 00:00:00 Only Unassigned, TASHI [id number] ity of [place] [facility] [id number] [facility] [id number] [facility] 009 Branch 2022-01-28 2022-01-28 Telephone [facility] [id number] [facility] 00:00:00 00:00:00 Aleyda FRANCO [id number] i ty of [facility] [id number] [place] [id number] Ca dical NAL 134 Branch [facility] 2022-01-28 2022-01-28 Case [facility] [id number] Univers 00:00:00 00:00:00 Management Inga FRANCO [id number] ity of [facility] [id number] [place] [id number] Ca dical NAL 134 Branch [facility] 2022-01-27 2022-01-27 Office [facility] [id number] Univers 09:00:00 10:20:38 Visit Inga FRANCO [id number] ity of [facility] [id number] [place] [id number] Ca dical NAL 134 [facility] Results This patient has no known results.
[2022-05-06] MEDS ORDERED: KETOROLAC 30 MG/ML INJ ONE (08:47)
--- NOTE | 2022-05-06 09:21 | ER ---
Nurse's Notes [facility] Name: Suzy Hammer Age: 36 yrs Sex: Female : 1985 Arrival Date: 05/06/2022 Time: 07:56 Bed 12 Private MD: Diagnosis: Headache;SARS-associated coronavirus as the cause of diseases classified elsewhere Presentation: 05/06 08:14 Chief complaint: Patient states: Tested positive for COVID on Monday. Pt is here ss today because she has had a headache every day that is worse at night since she was diagnosed. Coronavirus screen: Client denies travel out of the [place] in the last 14 days. Ebola Screen: Patient denies exposure to infectious person. Patient denies travel to an Ebola-affected area in the 21 days before illness onset. Initial Sepsis Screen: Does the patient meet any 2 criteria? No. Patient's initial sepsis screen is negative. Does the patient have a suspected source of infection? No. Patient's initial sepsis screen is negative. Risk Assessment: Do you want to hurt yourself or someone else? Patient reports no desire to harm self or others. Onset of symptoms was May 04, 2022. 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 - Social history:: Smoking status: Patient denies any tobacco usage or history of. Patient uses street drugs, marijuana. Screenin:21 Abuse screen: Denies threats or abuse. Denies injuries from another. Nutritional ss screening: No deficits noted. Tuberculosis screening: Never had TB. Fall Risk None identified. Assessment: 08:21 General: Appears in no apparent distress. comfortable, Behavior is calm, cooperative, ss Reports chills for 1-2 days, feeling ill for 1-2 days, fatigue for 1-2 days. Neuro: Level of Consciousness is awake, alert, obeys commands, Oriented to person, place, time, situation, Speech is normal. Neuro: Reports headache in entire since positive home covid test two days ago. Cardiovascular: Capillary refill < 3 seconds is brisk in bilateral. Respiratory: Airway is patent Respiratory effort is even, unlabored, Respiratory pattern is regular, symmetrical. GI: Patient currently denies diarrhea, nausea, vomiting. : No signs and/or symptoms were reported regarding the genitourinary system. EENT: Nares are clear. Derm: Skin is intact, is healthy with good turgor, Skin is dry, Skin is pink, warm \T\ dry. normal. Musculoskeletal: Circulation, motion, and sensation intact. Range of motion: intact in all extremities, Swelling. 09:06 Reassessment: Patient appears in no apparent distress at this time. Patient is alert, ss oriented x 3, equal unlabored respirations, skin warm/dry/pink. Vital Signs: 08:14 BP 100 / 76; Pulse 96; Resp 15; Temp 99.1(O); Pulse Ox 100% on R/A; Weight 104.33 kg; ss Height 5 ft. 3 in. (160.02 cm); Pain 8/10; 08:14 Body Mass Index 40.74 (104.33 kg, 160.02 cm) ED Course: 07:56 Patient arrived in ED. am2 08:15 Omega James PA is PHCP. cp 08:16 Omega Valadez MD is Attending Physician. cp 08:16 Triage completed. ss 08:16 Arm band placed on right wrist. ss 08:20 Ania Lester, THERESA is Primary Nurse. ss 08:21 Patient has correct armband on for positive identification. Bed in low position. Call ss light in reach. 09:29 No provider procedures requiring assistance completed. Patient did not have IV access ss during this emergency room visit. Administered Medications: 08:41 Drug: Ketorolac 60 mg Route: IM; Site: right gluteus; ap3 09:30 Follow up: Response: No adverse reaction ss Medication: 08:21 VIS not applicable for this client. ss Outcome: 09:20 Discharge ordered by . cp 09:29 Discharged to home ambulatory. ss 09:29 Condition: good 09:29 Discharge instructions given to patient, Instructed on discharge instructions, follow up and referral plans. medication usage, Demonstrated understanding of instructions, follow-up care, medications, Prescriptions given X 2. 09:30 Patient left the ED. ss Signatures: Ania Lester RN RN ss Omega James PA PA cp Moreno, Amanda am2 Rae Fuentes RN RN ap3
--- NOTE | 2022-05-06 09:21 | EDPHYS ---
Physician Documentation [facility] Name: Suzy Hammer Age: 36 yrs Sex: Female : 1985 Arrival Date: 05/06/2022 Time: 07:56 Bed 12 Private MD: ED Physician Omega Valadez HPI: 05/06 08:30 This 36 yrs old Female presents to ER via Ambulatory with complaints of cp covid+, Headache. 08:30 The patient complains of pain to the top of head and forehead. cp 08:30 The patient describes the headache as aching. Onset: The symptoms/episode cp began/occurred gradually. Associated signs and symptoms: Pertinent negatives: altered mental status, dizziness, fever, neck stiffness, sinus congestion, sinus tenderness, vision changes, weakness. Severity of symptoms: in the emergency department the pain is unchanged, despite home interventions. 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 - Social history:: Smoking status: Patient denies any tobacco usage or history of. Patient uses street drugs, marijuana. ROS: 08:35 Constitutional: Positive for body aches, Negative for fever, poor PO intake. cp 08:35 Neck: Negative for pain with movement, pain at rest, stiffness. cp 08:35 Abdomen/GI: Negative for abdominal pain, nausea, vomiting, and diarrhea. Exam: 08:40 Constitutional: The patient appears in no acute distress, alert, awake, cp non-diaphoretic, non-toxic, well developed, well nourished, overweight 08:40 Head/Face: Normocephalic, atraumatic. cp 08:40 Eyes: Periorbital structures: appear normal, Pupils: equal, round, and reactive to light and accomodation, Extraocular movements: intact throughout, Conjunctiva: normal, no exudate, no injection, Sclera: no appreciated abnormality, Lids and lashes: appear normal, bilaterally, Visual rivera: are intact. 08:40 ENT: External ear(s): are unremarkable, Nose: is normal, Mouth: Lips: moist, Oral mucosa: pink and intact, moist, Posterior pharynx: Airway: no evidence of obstruction, patent. 08:40 Neck: ROM/movement: is normal, is supple, without pain, no range of motions limitations, no meningismus, no nuchal rigidity. 08:40 Chest/axilla: Inspection: normal. 08:40 Cardiovascular: Rate: normal, Rhythm: regular. 08:40 Respiratory: the patient does not display signs of respiratory distress, Respirations: normal, no use of accessory muscles, no retractions, labored breathing, is not present, Breath sounds: are clear throughout, no decreased breath sounds, no stridor, no wheezing. 08:40 Abdomen/GI: Inspection: abdomen appears normal, Palpation: abdomen is soft and non-tender, in all quadrants. 08:40 Back: pain, is absent, ROM is normal. 08:40 Neuro: Orientation: to person, place \T\ time. Mentation: is normal, Cerebellar function: is grossly normal, Motor: moves all fours, strength is normal, Sensation: is normal. Vital Signs: 08:14 BP 100 / 76; Pulse 96; Resp 15; Temp 99.1(O); Pulse Ox 100% on R/A; Weight 104.33 kg; ss Height 5 ft. 3 in. (160.02 cm); Pain 8/10; 08:14 Body Mass Index 40.74 (104.33 kg, 160.02 cm) ss MDM: 08:19 Patient medically screened. [facility] 09:17 Data reviewed: vital signs, nurses notes, and as a result, I will discharge patient. cp Administered Medications: 08:41 Drug: Ketorolac 60 mg Route: IM; Site: right gluteus; ap3 09:30 Follow up: Response: No adverse reaction ss Disposition Summary: 05/06/22 09:20 Discharge Ordered Location: Home cp Problem: new cp Symptoms: have improved cp Condition: Stable cp Diagnosis - Headache cp - SARS-associated coronavirus as the cause of diseases classified elsewhere cp Followup: cp - With: Private Physician - When: 1 - 2 days - Reason: Worsening of condition Discharge Instructions: - Discharge Summary Sheet cp - Aspirin and Your Heart cp - COVID-19 cp - Things to Know about the COVID-19 Pandemic - [facility] cp - 10 Things You Can Do to Manage Your COVID-19 Symptoms at Home - [facility] cp - COVID-19: Quarantine vs. Isolation - [facility] cp - Prevent the Spread of COVID-19 if You Are Sick - [facility] cp Forms: - Medication Reconciliation Form cp - Thank You Letter cp - Antibiotic Education cp - Prescription Opioid Use cp Prescriptions: - Fioricet 50-300-40 mg Oral capsule - take 1 capsule by ORAL route every 4 hours as needed; 20 capsule; Refills: 0, cp Product Selection Permitted - Ibuprofen 800 mg Oral Tablet - take 1 tablet by ORAL route every 8 hours As needed take with food; 30 tablet; cp Refills: 0, Product Selection Permitted Signatures: Omega Valadez MD MD cha Smirch, Shelby RN RN ss Omega James PA PA Rae Ahn RN RN ap3
[2022-05-06 09:37] VITALS: BP 100/76; TEMP 99.1; O2SAT 100
== END 2022-05-06 09:30 | disposition home or self-care (01) ==
LOC: ER 07:53
DX: R51.9 Headache, unspecified (principal); U07.1 COVID-19
CPT/HCPCS: 96372; 99283

== ENCOUNTER 2022-10-10 20:17 | Emergency (ER) | payer OTHER ==
--- OUTSIDE RECORDS SUMMARY | 2022-10-10 20:22 | XMS REPORT | Continuity of Care Document ---
:1985 Author Organization [facility] t Address [address] [place] [address] Care Team Providers Name Role Phone Pcp, Patient Does Not Have A Primary Care Physician +[id number] ELI VILLAREAL Attending Clinician Unavailable Eli Villareal MD Attending Clinician Pob, [facility] Main Attending Clinician Unavailable Doctor Unassigned, [place] Attending Clinician Unavailable Zahira Lozada Attending Clinician 2, [facility] Attending Clinician Unavailable Paola Santos MD Attending Clinician MCKENZIE DELACRUZ Attending Clinician Unavailable Mckenzie Delacruz DO Attending Clinician DIGNA PATEL Attending Clinician Unavailable Digna Patel DO Attending Clinician Uche Garcia MD Attending Clinician TONNY ARIAS Attending Clinician Unavailable 1, [facility] Attending Clinician Unavailable Balaji Lowery Attending Clinician ELI VILLAREAL Admitting Clinician Unavailable DIGNA PATEL Admitting Clinician Unavailable Payers Payer Name Policy Type Policy Number Effective Date Expiration Date [facility] [id number] 2019 CHOICE MEDICAID 00:00:00 Problems Condition Condition Condition Status Onset Resolution Last Treating Co mments Source Name Details Category Date Date Treatment Clinician Date Gastroesop Gastroesop Disease Active U nivers hageal hageal 9-03 ity of reflux reflux 00:00: [place] disease disease 00 Medical without without Branch esophagiti esophagiti s s Abdominal Abdominal Disease Active Uni vers pain, pain, 8-14 ity of generalize [place] Medical Branch Intercosta Intercosta Disease Active U nivers l pain l pain 8-14 ity of 00:00: [place] 00 Medical Branch Class 3 Class 3 Disease Active Univers severe severe 8-14 ity of obesity obesity 00:00: [place] with body with body 00 Medi herve mass index mass index Br anch (BMI) of (BMI) of 40.0 to 40.0 to 44.9 in 44.9 in adult, adult, unspecifie unspecifie d obesity d obesity type, type, unspecifie unspecifie d whether d whether serious serious comorbidit comorbidit y present y present Needs flu Needs flu Disease Active Uni vers shot shot 1-07 ity of 00:00: [place] 00 Medical Branch Morbid Morbid Disease Active Univers obesity obesity 2-10 ity of 00:00: [address] Allergies, Adverse Reactions, Alerts Allergy Allergy Status Severity Reaction(s) Onset Inactive Treating Comm ents Source Name Type Date Date Clinician NO KNOWN Drug Active Univers ALLERGIE Class ity of S [facility] Social History Social Habit Start Date Stop Date Quantity Comments Source History [facility] University o f Alcohol Std [place] Medical Drinks Branch History [facility] o f Alcohol Binge [facility] al Branch Cigarettes smoked 2022-08-03 2022-08-03 Univers ity of current (pack per 00:00:00 00:00:00 [facility]) - Reported Branch Cigarette 2022-08-03 2022-08-03 University of pack-years 00:00:00 00:00:00 [facility] Alcohol intake 2022-08-03 2022-08-03 Current drinker of Un iversity of 00:00:00 00:00:00 alcohol (finding) [facility] Tobacco use and 2022-08-03 2022-08-03 Smokeless tobacco Un iversity of exposure 00:00:00 00:00:00 non-user [facility] Exposure to 2022-01-18 2022-01-28 Not sure [facility] SARS-CoV-2 00:00:00 11:09:00 [facility] (event) Branch Alcohol Comment 2022-01-27 2022-01-27 occasionally Univers ity of 00:00:00 00:00:00 [facility] History of 2020-09-18 Cigarette Smoker Universi ty of tobacco use 00:00:00 [facility] History SDOH 2019-05-01 2019-05-01 3 University o f Alcohol Frequency 00:00:00 00:00:00 [facility] Sex Ass[birth year] At [birth year] [facility] 00:00:00 00:[facility]:00 Hospital Smoking Status Start Date Stop Date Source Tobacco smoking [facility] consumption unknown Smokes tobacco daily 2022-08-03 00:00:00 Univers ity of [facility] Former smoker 2022-01-27 00:00:00 2022-01-27 [place] o f [place] 00:00:00 [facility] Branch Medications Ordered Filled Start Stop Current Ordering Indication Dosage Frequency Signature Comments Components Source Medication Medication Date Date Medication? Clinician (SIG) Name Name metroNIDAZO 2021-09 Yes [id number] 500mg Take 1 Univers LE 500 mg 1-18 tablet by ity o f tablet 00:00: mouth [place] 00 every 12 Medical (twelve) Branch hours. metroNIDAZO 2021-09 Yes [id number] 500mg Take 1 Univers LE 500 mg 1-18 tablet by ity o f tablet 00:00: mouth [place] 00 every 12 Medical (twelve) Branch hours. metroNIDAZO 2021-09 Yes [id number] 500mg Take 1 Univers LE 500 mg 1-18 tablet by ity o f tablet 00:00: mouth [place] 00 every 12 Medical (twelve) Branch hours. nystatin 2021-09 Yes [id number] Apply to Univers 100,000 1-16 area(s) 2 ity of unit/gram 00:00: (two) [place] powder 00 times Medical daily. Use Branch for 2 weeks nystatin 2021-09 Yes [id number] Apply to Univers 100,000 1-16 area(s) 2 ity of unit/gram 00:00: (two) [place] powder 00 times Medical daily. Use Branch for 2 weeks nystatin 2021-09 Yes [id number] Apply to Univers 100,000 1-16 area(s) 2 ity of unit/gram 00:00: (two) [place] powder 00 times Medical daily. Use Branch for 2 weeks nystatin 2021-09 Yes [id number] Apply to Univers 100,000 1-16 area(s) 2 ity of unit/gram 00:00: (two) [place] powder 00 times Medical daily. Use Branch for 2 weeks nystatin 2021-09 Yes [id number] Apply to Univers 100,000 1-16 area(s) 2 ity of unit/gram 00:00: (two) [place] powder 00 times Medical daily. Use Branch for 2 weeks nystatin 2021-09 Yes [id number] Apply to Univers 100,000 1-16 area(s) 2 ity of unit/gram 00:00: (two) [place] powder 00 times Medical daily. Use Branch for 2 weeks metroNIDAZO 2021-0 Yes [id number] 500mg Take 1 Univers LE 500 mg 5-13 tablet by ity o f tablet 00:00: mouth [place] 00 every 12 Medical (twelve) Branch hours. metroNIDAZO 2021-0 Yes [id number] 500mg Take 1 Univers LE 500 mg 5-13 tablet by ity o f tablet 00:00: mouth [place] 00 every 12 Medical (twelve) Branch hours. metroNIDAZO 2021-0 Yes [id number] 500mg Take 1 Univers LE 500 mg 5-13 tablet by ity o f tablet 00:00: mouth [place] 00 every 12 Medical (twelve) Branch hours. metroNIDAZO 2022-0 2022- No [id number] 500mg Take 1 Univers LE 500 mg 5-13 11-16 tablet by ity of tablet 00:00: 00:00 mouth [place] 00 :00 every 12 Medical (twelve) Branch hours. metroNIDAZO 2022-0 2022- No [id number] 500mg Take 1 Univers LE 500 mg 5-13 11-16 tablet by ity of tablet 00:00: 00:00 mouth [place] 00 :00 every 12 Medical (twelve) Branch hours. nystatin 2021-0 Yes [id number] Apply to Univers 100,000 5-12 area(s) 2 ity of unit/gram 00:00: (two) [place] powder 00 times Medical daily. Use Branch for 2 weeks nystatin 2021-0 Yes [id number] Apply to Univers 100,000 5-12 area(s) 2 ity of unit/gram 00:00: (two) [place] powder 00 times Medical daily. Use Branch for 2 weeks nystatin 2021-0 Yes [id number] Apply to Univers 100,000 5-12 area(s) 2 ity of unit/gram 00:00: (two) [place] powder 00 times Medical daily. Use Branch for 2 weeks nystatin 2021-0 Yes [id number] Apply to Univers 100,000 5-12 area(s) 2 ity of unit/gram 00:00: (two) [place] powder 00 times Medical daily. Use Branch for 2 weeks nystatin 2021-0 Yes [id number] Apply to Univers 100,000 5-12 area(s) 2 ity of unit/gram 00:00: (two) [place] powder 00 times Medical daily. Use Branch for 2 weeks nystatin 2021-0 Yes [id number] Apply to Univers 100,000 5-12 area(s) 2 ity of unit/gram 00:00: (two) [place] powder 00 times Medical daily. Use Branch for 2 weeks nystatin 0 2- No [id number] Apply to Univers 100,000 5-12 11-16 area(s) 2 ity of unit/gram 00:00: 00:00 (two) [place] powder 00 :00 times Medical daily. Use Branch for 2 weeks nystatin 2- No [id number] Apply to Univers 100,000 5-12 11-16 area(s) 2 ity of unit/gram 00:00: 00:00 (two) [place] powder 00 :00 times Medical daily. Use Branch for 2 weeks phenazopyri 2020-09- No [id number] 200mg Take 1 Univers dine 200 mg 2-28 05-12 tablet by it y of tablet 00:00: 00:00 mouth 3 [place] 00 :00 (three) Medical times Branch daily. phenazopyri 2020-09- No [id number] 200mg Take 1 Univers dine 200 mg 2-28 05-12 tablet by it y of tablet 00:00: 00:00 mouth 3 [place] 00 :00 (three) Medical times Branch daily. pantoprazol 2021- No [id number] 40mg Take 1 Univers e 40 mg EC 6-17 05-12 tablet by ity of tablet 00:00: 00:00 mouth [place] 00 :00 daily. Medical Branch ondansetron 2021- No [id number] 4mg Take 1 Univers 4 mg 6-17 05-12 tablet by ity of disintegrat 00:00: 00:00 [place] tablet 00 :00 every 4 Medica l (four) Branch hours as needed for Nausea and Vomiting (N/V). Nitrofurant 2021- No [id number] 100mg Take 1 Univers oin&Nit. 6-17 05-12 capsule by ity of Macrocryst 00:00: 00:00 mouth 2 [place] as (MACROBID) 00 :00 (two) Medical 100 mg times Branch capsule daily. sucralfate 2021- No [id number] 1g Take 1 Univers 1 gram 6-17 05-12 tablet by ity of tablet 00:00: 00:00 mouth [place] 00 :00 before Medical meals and Branch at bedtime. pantoprazol 2021- No [id number] 40mg Take 1 Univers e 40 mg EC 6-17 05-12 tablet by ity of tablet 00:00: 00:00 mouth [place] 00 :00 daily. Medical Branch ondansetron 2021- No [id number] 4mg Take 1 Univers 4 mg 6-17 05-12 tablet by ity of disintegrat 00:00: 00:00 [place] tablet 00 :00 every 4 Medica l (four) Branch hours as needed for Nausea and Vomiting (N/V). Nitrofurant 2021- No [id number] 100mg Take 1 Univers oin&Nit. 6-17 05-12 capsule by ity of Macrocryst 00:00: 00:00 mouth 2 [place] as (MACROBID) 00 :00 (two) Medical 100 mg times Branch capsule daily. sucralfate 2021- No [id number] 1g Take 1 Univers 1 gram 6-17 05-12 tablet by ity of tablet 00:00: 00:00 mouth [place] 00 :00 before Medical meals and Branch at bedtime. traMADOL 50 2021- No [id number] 50mg Take 1 Univers mg tablet 03-1212 tablet by ity of 00:00: 00:00 mouth [place] 00 :00 every 6 Medical (six) Branch hours as needed for Pain (scale 4-6) or Pain (scale 7-10). traMADOL 50 2021- No [id number] 50mg Take 1 Univers mg tablet 03-1212 tablet by ity of 00:00: 00:00 mouth [place] 00 :00 every 6 Medical (six) Branch hours as needed for Pain (scale 4-6) or Pain (scale 7-10). No known No No known Metho di medications -[address] 13:55: [facility] l proMETHazin 2016-09- No 25mg Take 1 Uni vers e 25 mg 09-26 tablet by ity of tablet 00:00: 00:00 mouth [place] 00 :00 every 6 Medical (six) Branch hours as needed for Nausea and Vomiting (N/V). proMETHazin 2016-09- No 25mg Take 1 Uni vers e 25 mg 09-26 tablet by ity of tablet 00:00: 00:00 mouth [place] 00 :00 every 6 Medical (six) Branch hours as needed for Nausea and Vomiting (N/V). Immunizations Ordered Filled Immunization Date Status Comments [facility] Immunization Name Name Pneumococcal 2014-11-18 Completed University o f Polysaccharide, 00:00:00 [place] Med ical PPSV23 (PNEUMOVAX) Central Influenza Virus 2014-11-18 Completed Universit y of Vaccine Quad IM 3+ 00:00:00 [facility] Pneumococcal 2014-11-18 Completed University o f Polysaccharide, 00:00:00 [place] Med ical PPSV23 (PNEUMOVAX) Branch Influenza Virus 2014-11-18 Completed Universit y of Vaccine Quad IM 3+ 00:00:00 [facility] Pneumococcal 2014-11-18 Completed University o f Polysaccharide, 00:00:00 [place] Med ical PPSV23 (PNEUMOVAX) Branch Influenza Virus 2014-11-18 Completed Universit y of Vaccine Quad IM 3+ 00:00:00 [facility] Pneumococcal 2014-11-18 Completed University o f Polysaccharide, 00:00:00 [place] Med ical PPSV23 (PNEUMOVAX) Central Influenza Virus 2014-11-18 Completed Universit y of Vaccine Quad IM 3+ 00:00:00 [facility] Pneumococcal 2014-11-18 Completed University o f Polysaccharide, 00:00:00 [place] Med ical PPSV23 (PNEUMOVAX) Branch Influenza Virus 2014-11-18 Completed Universit y of Vaccine Quad IM 3+ 00:00:00 [facility] Pneumococcal 2014-11-18 Completed University o f Polysaccharide, 00:00:00 [place] Med ical PPSV23 (PNEUMOVAX) Branch Influenza Virus 2014-11-18 Completed Universit y of Vaccine Quad IM 3+ 00:00:00 [facility] Pneumococcal 2014-11-18 Completed University o f Polysaccharide, 00:00:00 [place] Med ical PPSV23 (PNEUMOVAX) Branch Influenza Virus 2014-11-18 Completed Universit y of Vaccine Quad IM 3+ 00:00:00 [facility] Pneumococcal 2014-11-18 Completed University o f Polysaccharide, 00:00:00 [place] Med ical PPSV23 (PNEUMOVAX) Branch Influenza Virus 2014-11-18 Completed Universit y of Vaccine Quad IM 3+ 00:00:00 [facility] Pneumococcal 2014-11-18 Completed University o f Polysaccharide, 00:00:00 [place] Med ical PPSV23 (PNEUMOVAX) Branch Influenza Virus 2014-11-18 Completed Universit y of Vaccine Quad IM 3+ 00:00:00 [facility] Pneumococcal 2014-11-18 Completed University o f Polysaccharide, 00:00:00 [place] Med ical PPSV23 (PNEUMOVAX) Branch Influenza Virus 2014-11-18 Completed Universit y of Vaccine Quad IM 3+ 00:00:00 [facility] Pneumococcal 2014-11-18 Completed University o f Polysaccharide, 00:00:00 [place] Med ical PPSV23 (PNEUMOVAX) Branch Influenza Virus 2014-11-18 Completed Universit y of Vaccine Quad IM 3+ 00:00:00 [facility] Pneumococcal 2014-11-18 Completed University o f Polysaccharide, 00:00:00 [place] Med ical PPSV23 (PNEUMOVAX) Branch Influenza Virus 2014-11-18 Completed Universit y of Vaccine Quad IM 3+ 00:00:00 [facility] TDAP 2012-05-19 Completed University of 00:00:00 [facility] TDAP 2012-05-19 Completed University of 00:00:00 [place] [facility] TDAP 2012-05-19 Completed University of 00:00:00 [place] [facility] TDAP 2012-05-19 Completed University of 00:00:00 [place] [facility] TDAP 2012-05-19 Completed University of 00:00:00 [place] [facility] TDAP 2012-05-19 Completed University of 00:00:00 [place] [facility] TDAP 2012-05-19 Completed University of 00:00:00 [place] [facility] TDAP 2012-05-19 Completed University of 00:00:00 [place] [facility] TDAP 2012-05-19 Completed University of 00:00:00 [place] [facility] TDAP 2012-05-19 Completed University of 00:00:00 [place] [facility] TDAP 2012-05-19 Completed University of 00:00:00 [place] [facility] TDAP 2012-05-19 Completed University of 00:00:00 [place] [facility] Rubella 2010-06-29 Completed University of 00:00:00 [place] [facility] Rubella 2010-06-29 Completed University of 00:00:00 [place] [facility] Rubella 2010-06-29 Completed University of 00:00:00 [place] [facility] Rubella 2010-06-29 Completed University of 00:00:00 [place] [facility] Rubella 2010-06-29 Completed University of 00:00:00 [place] [facility] Rubella 2010-06-29 Completed University of 00:00:00 [place] [facility] Rubella 2010-06-29 Completed University of 00:00:00 [place] [facility] Rubella 2010-06-29 Completed University of 00:00:00 [place] [facility] Rubella 2010-06-29 Completed University of 00:00:00 [place] [facility] Rubella 2010-06-29 Completed University of 00:00:00 [place] [facility] Rubella 2010-06-29 Completed University of 00:00:00 [place] [facility] Rubella 2010-06-29 Completed University of 00:00:00 [facility] Branch Vital Signs Vital Name Observation Time Observation Value Comments Source Systolic blood 2022-08-03 15:58:00 104 mm[Hg] Univer sity of pressure [facility] Diastolic blood 2022-08-03 15:58:00 67 mm[Hg] Unive rsity of pressure [facility] Heart rate 2022-08-03 15:58:00 102 /min Universi ty of [facility] Body temperature 2022-08-03 15:58:00 37 [facility] Respiratory rate 2022-08-03 15:58:00 18 /min [facility] Body height 2022-08-03 15:58:00 160 cm Universi [facility] Body weight 2022-08-03 15:58:00 99.655 kg [facility] BMI 2022-08-03 15:58:00 38.92 kg/m2 Univers ty [facility] Systolic blood 2022-01-27 14:23:00 108 mm[Hg] Univer sity of [facility] Diastolic blood 2022-01-27 14:23:00 71 mm[Hg] Unive rsity of [facility] Heart rate 2022-01-27 14:23:00 86 /min [facility] Body temperature 2022-01-27 14:23:00 36.83 [facility] Body height 2022-01-27 14:23:00 160 cm Universi [facility] Body weight 2022-01-27 14:23:00 104.418 kg [facility] BMI 2022-01-27 14:23:00 40.78 kg/m2 [facility] Procedures Procedure Date / Time Performed Performing Clinician [facility] e ASSIGNMENT OF BENEFITS 2022-02-04 19:04:00 Doctor Unassigned, No [facility] Encounters Start End Encounter Admission Attending Care Care Encounter Source Date/Time Date/Time Type Type Clinicians Facility Department ID 2021-07-19 Emergency [facility] [id number] Univers 01:54:26 ity of [facility] 2022-08-08 2022-08-08 Telephone Adum, [facility] [id number] Univers 00:00:00 00:00:00 Eli FRANCO 350.1.13.10 ity [facility] 4.2.7.2.686 Aleisha SANCHEZ [phone] [address] 2022-08-05 2022-08-05 Block Cleaner Killian, Lobo Lab Main [facility] [id number] [facility] 12:45:00 13:00:00 Visit Adum, Eli PUTNAMGUY 350.1.13.10 ity of [place].2.[place] [facility] [id number] Ct dical NAL 353 [facility] 2022-08-05 2022-08-05 Outpatient R [facility] [id number] Univers 12:45:00 12:45:[address] [facility] 2022-08-05 2022-08-05 Case [facility] [id number] Univers 00:00:00 00:00:00 Management Eli FRANCO 350.1.13.10 ity of [place] 4[place]2.7.2.686 [place] [facility] [id number] [facility] 134 [facility] 2022-08-03 2022-08-03 Outpatient R [facility] [id number] Univers 10:00:00 10:47:[address] [facility] 2022-08-03 2022-08-03 [facility] [id number] Univers 10:00:00 10:47:58 Visit Eli Olguin DEE 350.1.13.10 i ty of [facility].7.2.686 [facility] [phone] [facility] [address] [facility] 2022-02-04 2022-02-04 [facility] [id number] Univers 14:04:28 23:59:[address] [facility] 2022-02-04 2022-02-04 [facility] [id number] Univers 14:00:00 23:59:00 Encounter Eli Olguin SAL[place]AD[place] 350.1.13.10 ity of [place] 4[place]2.7.2.[place] [id number] [facility] [address] 2022-02-04 2022-02-04 Orders Doctor TATYANA 1.2.840.114 [id number] Univers 00:00:00 00:00:00 Only Unassigned, TASHI 350.1.13.10 ity of [place] [facility] 4.2.7.2.686 [place] as [id number] [address] 2022-01-28 2022-01-28 Telephone Fernando [facility] [id number] Univers 00:00:00 00:00:00 Zahira SALVADOR 350.1.13.10 i ty of [facility] 4.2.7.2.686 [place] [id number] Ct dical NAL 134 [facility] 2022-01-28 2022-01-28 Case Adum, [facility] [id number] Univers 00:00:00 00:00:00 Management Eli FRANCO 350.1.13.10 ity of [facility] 4.2.7.2.686 [place] [id number] Ct dical NAL 134 [facility] 2022-01-27 2022-01-27 Block Cleaner 2, Adc Lab [facility] [id number] Univers 10:45:00 11:00:00 Visit Paola Santos 350.1.13.10 ity of [facility] 4.2.7.2.686 [place] [id number] Ct dical NAL 353 [facility] 2022-01-27 2022-01-27 [facility] [id number] Univers 09:00:00 10:20:[address] [facility] 2022-01-27 2022-01-27 [facility] [id number] Univers 09:00:00 10:20:38 Visit Eli Clau FRANCO 350.1.13.10 ity of [facility] 4.2.7.2.686 [place] [id number] Ct dical NAL 134 [facility] 2022-01-27 2022-01-27 [facility] [id number] Univers 09:00:00 10:20:[address] [facility] 2022-01-27 2022-01-27 Orders Doctor JOE 1.2.840.114 [id number] Univers 00:00:00 00:00:00 Only Unassigned, TASHI 350.1.13.10 [facility] 4.2.7.2.686 [place] as [id number] [facility] [address] 2022-01-27 2022-01-27 [facility] 1.2.840.114 [id number] Univers 00:00:00 00:00:00 (Out) Eli Clau FRANCO 350.1.13.10 ity of [place] 4.2.7.2.686 [place] [id number] Ct dical [facility] 134 [facility] 2022-01-19 2022-01-19 Emergency X FABRIAN, [facility] ERT [id number] Univers 19:53:00 22:14:00 MCKENZIE [facility] 2022-01-19 2022-01-19 Emergency Faulconer, TRAUMA 1.2.840.114 [id number] Univers 19:53:00 22:14:00 [facility] 350.1.13.10 it y of [place]2.686 [place] [id number] [facility] [address] 2021-09-14 2021-09-14 Emergency [facility] [id number] Univers 11:56:00 14:24:[address] [facility] 2021-09-14 2021-09-14 [facility] [id number] Univers 11:56:00 14:24:00 Digna FRANCO 350.1.13.10 i ty of [place] 4.2.7.2.686 [place] [id number] [place] [id number] [place] 2021-03-04 2021-03-04 Emergency [facility] [id number] Univers 13:20:00 16:50:00 Uche Franco 350.1.13.10 i ty of [place] 4.2.7.2.686 [place] [id number] [address] 2020-09-28 2020-09-28 Outpatient Chucky ARIAS [facility] [id number] Univers 14:15:00 14:15:[address] [facility] 2020-09-14 2020-09-14 Outpatient R HUGO [facility] [id number] Univers 14:15:00 14:15:00 TONNY ity of [facility] 2020-09-03 2020-09-03 Orders Doctor TATYANA 1.2.840.114 [id number] Univers 00:00:00 00:00:00 Only Unassigned, TASHI 350.1.13.10 ity of [place] [facility] 4.2.7.2.686 Chance as [id number] [address] 2019-07-31 2019-07-31 Orders Doctor TATYANA 1.2.840.114 [id number] Univers 00:00:00 00:00:00 Only Unassigned, TASHI 350.1.13.10 ity of [place] [facility] 4.2.7.2.686 Chance as [id number] [address] 2019-05-21 2019-05-23 Office Fernando [facility] 1.2.840.114 [id number] Univers 13:35:02 12:08:47 Visit [facility] 350.1.13.10 it y of [place] 4.2.7.2.686 Chance as Professio [id number] [address] Office Building One 2019-05-22 2019-05-22 Block Cleaner 1, Adc Lab [facility] 1.2.840.114 [id number] Univers 10:35:34 10:50:34 Visit NataliiavickyZahira 350.1.13.10 ity of [place] 4.2.7.2.686 [place] [facility] [id number] [address] 2019-05-22 2019-05-22 Orders Doctor JOE 1.2.840.114 [id number] Univers 00:00:00 00:00:00 Only Unassigned, TASHI 350.1.13.10 ity of [place] [facility] 4.2.7.2.686 Chance as [id number] [address] 2019-05-21 2019-05-21 Telephone Woodrow [facility] [id number] Univers 00:00:00 00:00:00 Balaji Locke HUMAN SERVICES MANAGER 350.1.13.10 ity of [facility] 4.2.7.2.686 Chance as MATERNAL [id number] [facility] ical & CHILD [address] [place] [address] 2019-05-06 2019-05-06 Telephone Woodrow [facility] [id number] Univers 00:00:00 00:00:00 Balaji Locke HUMAN SERVICES MANAGER 350.1.13.10 ity of [facility] 4.2.7.2.686 Chance as MATERNAL [phone] [facility] & CHILD [address] [place] [address] 2019-05-01 2019-05-01 Office [place] [id number] Univers 10:30:08 11:09:37 Visit Balaji Locke HUMAN SERVICES MANAGER [id number] ity of [facility] [id number] Chance as MATERNAL [phone] [facility] & CHILD [address] [place] [address] 2019-05-01 2019-05-01 Orders Doctor JOE [id number] Univers 00:00:00 00:00:00 Only Unassigned, TASHI [id number] ity of [place] [facility] [id number] Chance as [phone] [place] [id number] Branch Results This patient has no known results.
[2022-10-10] MEDS ORDERED: ACETAMINOPHEN 500 MG TAB ONE (21:39)
[2022-10-10 21:46] LABS: Urine Blood 3+ (Negative); Urine Glucose Negative (Negative); Urine Protein 1+ (Negative); Urine Specific Gravity >=1.030 (1.005-1.030)
[2022-10-10 22:03] LABS: Urine Specific Gravity/Preg >1.030 (1.005-1.030)
[2022-10-10] MEDS ORDERED: dexAMETHasone 10 MG/ML VIAL ONE (22:17)
[2022-10-10] MEDS ORDERED: NA CHLORIDE 0.9% 1,000 ML ONE (22:17)
[2022-10-10] MEDS ORDERED: DIPHENHYDRAMINE 50 MG/ML VIAL ONE (22:17)
[2022-10-10] MEDS ORDERED: METOCLOPRAMIDE 10 MG/2mL INJ ONE (22:17)
--- NOTE | 2022-10-10 22:32 | RAD REPORT ---
EXAM DESCRIPTION: CT - Head Brain Wo Cont - 10/10/2022 9:47 pm CLINICAL HISTORY: headache COMPARISON: <Comparisons>CT head June 2019 TECHNIQUE: Axial 5 mm thick images of the head were obtained without IV contrast. All CT scans are performed using dose optimization technique as appropriate and may include automated exposure control or mA/KV adjustment according to patient size. FINDINGS: No intracranial hemorrhage, mass, edema or shift of mid-line structures. No acute infarcti on changes seen. No abnormal extra-axial fluid collections. Ventricles are normal. Mastoid air cells and visualized portions of the paranasal sinuses are clear. No acute bony findings. IMPRESSION: Negative non-contrast CT head examination.
[2022-10-10 22:40] LABS: Urine Bacteria 20-50 /HPF (<20); Urine Mucus 2+ /HPF (None Seen); Urine WBC Clump Rare /HPF (None Seen)
[2022-10-10 22:48] LABS: Absolute Lymphocytes (CBC) 2.6 K/uL (0.7-4.9); Hematocrit 33.2 % (36.0-45.0); MCV 69.8 fL (80-100); MPV 9.8 fL (7.6-11.3); RBC Red Blood Cell Count 4.76 M/uL (3.86-4.86)
[2022-10-10 23:13] LABS: Potassium 3.3 mmol/L (3.5-5.1)
[2022-10-10] MEDS ORDERED: CEFTRIAXONE 1000 MG/VIAL ONE (23:19)
[2022-10-10] MEDS ORDERED: KETOROLAC 30 MG/ML INJ ONE (23:19)
[2022-10-10 23:55] LABS: Blood Morphology Comment NOTED (NOT SEEN); Platelet Estimate ADEQ; White Blood Cell Scan OK (OK)
--- NOTE | 2022-10-11 00:08 | EDPHYS ---
Physician Documentation [facility] Name: Suzy Hammer Age: 37 yrs Sex: Female : 1985 Arrival Date: 10/10/2022 Time: 20:20 Bed 14 Private MD: ED Physician Moses Reyes HPI: 10/10 21:30 This 37 yrs old Female presents to ER via Ambulatory with complaints of cp Headache, Neck Pain, <24hrs Old. 21:30 The patient complains of pain to the left side of head. cp 21:30 The patient describes the headache as aching. Onset: The symptoms/episode cp began/occurred 3 day(s) ago. 21:30 Associated signs and symptoms: Pertinent positives: left side neck pain, diarrhea cp today, Pertinent negatives: altered mental status, fever, paresthesias, vomiting. Severity of symptoms: in the emergency department the pain is unchanged, despite home interventions. Headache History: Other Patient reports history of headaches but this headache is in different location and has been persistent. 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 - Social history:: Smoking status: Patient reports the use of cigarette tobacco products, Patient/guardian denies using tobacco, the patient reports quitting approximately 1 years ago, Patient uses alcohol, but reports only rare drinking. street drugs, marijuana, stop using marijuana on September 17, 2022, Patient/guardian denies using alcohol. ROS: 21:35 Constitutional: Negative for body aches, chills, fever, poor PO intake. cp 21:35 Eyes: Negative for injury, pain, redness, and discharge. cp 21:35 ENT: Negative for drainage from ear(s), ear pain, sore throat, difficulty swallowing, difficulty handling secretions. 21:35 Neck: Positive for pain with movement, pain at rest, tenderness. 21:35 Cardiovascular: Negative for chest pain, edema, palpitations. 21:35 Respiratory: Negative for cough, shortness of breath, wheezing. 21:35 Abdomen/GI: Negative for abdominal pain, vomiting, diarrhea, constipation. 21:35 Neuro: Positive for headache, Negative for altered mental status, numbness, weakness. 21:35 All other systems are negative. Exam: 21:40 Constitutional: The patient appears in no acute distress, alert, awake, non-toxic, well cp developed, well nourished, obese, uncomfortable. 21:40 Head/Face: Normocephalic, atraumatic. cp 21:40 Eyes: Periorbital structures: appear normal, Pupils: equal, round, and reactive to light and accomodation, Extraocular movements: intact throughout, Conjunctiva: normal, no exudate, no injection, Sclera: no appreciated abnormality, Lids and lashes: appear normal, bilaterally. 21:40 ENT: External ear(s): are unremarkable, Ear canal(s): are normal, clear, TM's: dullness, bilaterally, Nose: is normal, Mouth: Lips: moist, Oral mucosa: moist, Posterior pharynx: is normal, airway is patent, no erythema, no exudate, Voice: is normal. 21:40 Neck: ROM/movement: limited range of motion, is not appreciated, Meningeal signs: are not present, nuchal rigidity, is not appreciated, Lymph nodes: no appreciated lymphadenopathy. 21:40 Chest/axilla: Inspection: normal. 21:40 Cardiovascular: Rate: normal, Rhythm: regular. 21:40 Respiratory: the patient does not display signs of respiratory distress, Respirations: normal, no use of accessory muscles, no retractions, labored breathing, is not present, Breath sounds: are clear throughout, no decreased breath sounds, no stridor, no wheezing. 21:40 Abdomen/GI: Inspection: abdomen appears normal, Palpation: abdomen is soft and non-tender, in all quadrants. 21:40 Back: pain, is absent, ROM is normal. 21:40 Skin: no rash present. 21:40 Neuro: Orientation: to person, place \T\ time. Mentation: is normal, Cerebellar function: is grossly normal, Motor: moves all fours, strength is normal, Sensation: is normal. Vital Signs: 20:29 BP 109 / 78; Pulse 78; Resp 18; Temp 98.4; Pulse Ox 99% on R/A; Weight 102.06 kg; pf1 Height 5 ft. 3 in. (160.02 cm); Pain 8/10; 21:42 BP 114 / 68; Pulse 72; Resp 17 S; Pulse Ox 100% on R/A; as6 23:13 BP 113 / 69; Pulse 61; Resp 18 S; Pulse Ox 99% on R/A; as6 20:29 Body Mass Index 39.86 (102.06 kg, 160.02 cm) pf1 MDM: 20:42 Patient medically screened. cp 10/11 00:06 Data reviewed: vital signs, nurses notes, lab test result(s), radiologic studies, CT cp scan. 00:06 Differential diagnosis: intracerebral hemorrhage, meningitis, migraine, neoplasm, cp sinusitis. Consideration of Admission/Observation Escalation of care including admission/observation considered. I considered the following discharge prescriptions or medication management in the emergency department Medications were administered in the Emergency Department. See MAR. Test considered but Not performed: MRI: brain. Counseling: I had a detailed discussion with the patient and/or guardian regarding: the historical points, exam findings, and any diagnostic results supporting the discharge/admit diagnosis, lab results, radiology results, the need for outpatient follow up, a family practitioner, to return to the emergency department if symptoms worsen or persist or if there are any questions or concerns that arise at home. Response to treatment: the patient's symptoms have markedly improved after treatment, and as a result, I will discharge patient. 10/10 21:46 Order name: Urine --Ancillary (enter results); Complete Time: 22:38 mw2 10/10 21:46 Order name: Urine Dipstick-Ancillary; Complete Time: 21:51 EDMS 10/10 21:52 Order name: Urine Microscopic Only; Complete Time: 23:05 cp 10/10 21:52 Order name: Urine Culture cp 10/10 21:52 Order name: CBC with Diff; Complete Time: 00:01 cp 10/11 00:01 Interpretation: Normal except: HGB 10.6; HCT 33.2; MCV 69.8; MCH 22.3; MCHC 31.9; RDW cp 19.9. 10/10 21:52 Order name: BMP; Complete Time: 00:01 cp 10/10 21:24 Order name: CT Head Brain wo Cont; Complete Time: 22:38 cp 10/10 23:14 Order name: CBC Smear Scan; Complete Time: 00:01 EDMS 10/10 21:24 Order name: Urine Dipstick-Ancillary (obtain specimen); Complete Time: 21:44 cp 10/10 21:24 Order name: Urine Test (obtain specimen); Complete Time: 21:44 cp 10/10 21:52 Order name: IV; Complete Time: 22:41 cp Administered Medications: 10/10 21:42 Drug: Tylenol 1000 mg Route: PO; 10/11 00:24 Follow up: Response: No adverse reaction 10/10 22:42 Drug: NS 0.9% 1000 ml Route: IV; Rate: 1 bolus; Site: right antecubital; 10/11 00:24 Follow up: Response: No adverse reaction; IV Status: Completed infusion; IV Intake: as6 1000ml 10/10 22:42 Drug: Reglan (metoCLOPramide) 10 mg Route: IVP; Site: right antecubital; 10/11 00:24 Follow up: Response: No adverse reaction 10/10 22:42 Drug: Benadryl (diphenhydrAMINE) 25 mg Route: IVP; Site: right antecubital; 10/11 00:24 Follow up: Response: No adverse reaction 10/10 22:43 Drug: Decadron - Dexamethasone 10 mg Route: IVP; Site: right antecubital; 10/11 00:24 Follow up: Response: No adverse reaction 10/10 23:19 Drug: Ketorolac 15 mg Route: IVP; Site: right antecubital; 10/11 00:25 Follow up: Response: No adverse reaction 10/10 23:19 Drug: Rocephin (cefTRIAXone) 1 grams Route: IV; Rate: calculated rate; Site: right 6 antecubital; 10/11 00:25 Follow up: Response: No adverse reaction; IV Status: Completed infusion; IV Intake: [id number] 00:24 Drug: Potassium Effervescent Tablet 50 mEq Route: PO; 00:25 Follow up: Response: No adverse reaction Disposition: 23:51 Co-signature as Attending Physician, Moses Reyes MD. rn Disposition Summary: 10/11/22 00:07 Discharge Ordered Location: Home cp Problem: new cp Symptoms: have improved cp Condition: Stable cp Diagnosis - Headache cp - UTI/ Urinary tract infection, site not specified cp - Anemia, unspecified cp Followup: cp - With: Private Physician - When: 2 - 3 days - Reason: Recheck today's complaints Discharge Instructions: - Discharge Summary Sheet cp - Anemia cp - General Headache Without Cause cp - Urinary Tract Infection, Adult cp - Potassium Content of Foods cp Forms: - Medication Reconciliation Form cp - Thank You Letter cp - Antibiotic Education cp - Prescription Opioid Use cp Prescriptions: - Ibuprofen 800 mg Oral Tablet - take 1 tablet by ORAL route every 8 hours As needed take with food; 30 tablet; cp Refills: 0, Product Selection Permitted - Zofran 4 mg Oral Tablet - take 1 tablet by ORAL route every 12 hours As needed; 20 tablet; Refills: 0, cp Product Selection Permitted - Macrobid 100 mg Oral Capsule - take 1 capsule by ORAL route every 12 hours for 7 days; 14 capsule; Refills: 0, cp Product Selection Permitted - Potassium Chloride 10 mEq Oral capsule, extended release - take 1 tablet by ORAL route once daily for 3 days; 3 tablet; Refills: 0, cp Product Selection Permitted Signatures: Dispatcher [employer] Moses Mann MD MD rn Page, Corey, PA PA cp Reagan Talbot RN RN as6 Shantel victor RN RN pf1
--- NOTE | 2022-10-11 00:08 | ER ---
Nurse's Notes [facility] Name: Suzy Hammer Age: 37 yrs Sex: Female : 1985 Arrival Date: 10/10/2022 Time: 20:20 Bed 14 Private MD: Diagnosis: Headache;UTI/ Urinary tract infection, site not specified;Anemia, unspecified Presentation: 10/10 20:29 Chief complaint: Patient states: Intermittent left side headache pain of 8 with nausea pf1 and diarrhea x 2 episodes today,onset 0500 this AM. Patient stated headache is like previous headaches. Patient stated headaches respond well with medication. Pt stated took Advil 800 mg at 0600 this AM. Coronavirus screen: Vaccine status: Patient reports receiving the 1st dose of the Covid vaccine. Client denies travel out of the [place] in the last 14 days. Client presents with at least one sign or symptom that may indicate coronavirus-19. Standard/surgical mask placed on the client. Ebola Screen: Patient negative for fever greater than or equal to 101.5 degrees Fahrenheit, and additional compatible Ebola Virus Disease symptoms. Initial Sepsis Screen: Does the patient meet any 2 criteria? No. Patient's initial sepsis screen is negative. Does the patient have a suspected source of infection? No. Patient's initial sepsis screen is negative. Risk Assessment: Do you want to hurt yourself or someone else? Patient reports no desire to harm self or others. Onset of symptoms was October 10, 2022. 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 - Social history:: Smoking status: Patient reports the use of cigarette tobacco products, Patient/guardian denies using tobacco, the patient reports quitting approximately 1 years ago, Patient uses alcohol, but reports only rare drinking. street drugs, marijuana, stop using marijuana on September 17, 2022, Patient/guardian denies using alcohol. Screenin:35 [facility] ED Fall Risk Assessment (Adult) History of falling in the last 3 months, pf1 including since admission No falls in past 3 months (0 pts) Confusion or Disorientation No (0 pts) Intoxicated or Sedated No (0 pts) Impaired Gait No (0 pts) Mobility Assist Device Used No (0 pt) Altered Elimination No (0 pt) Score/Fall Risk Level 0 - 2 = Low Risk Oriented to surroundings, Maintained a safe environment, Educated pt \\T\\ family on fall prevention, incl call for assistance when getting out of bed, Assessed \\T\\ reinforced patient's understanding of fall precautions, Provided non-skid footwear, Hourly rounding (assess needs \\T\\ fall precautionary measures) done, Used ambulatory aids as needed (educated on \\T\\ assisted with), Used gait belt as appropriate. Abuse screen: Denies threats or abuse. Nutritional screening: No deficits noted. Tuberculosis screening: No symptoms or risk factors identified. Assessment: 21:42 General: Appears in no apparent distress. Behavior is calm, cooperative. Pain: as6 Complains of pain in head Quality of pain is described as aching, throbbing. Neuro: Level of Consciousness is awake, alert, obeys commands, Oriented to person, place, time, situation, Reports headache in left parietal area, frontal area. Cardiovascular: Capillary refill < 3 seconds Patient's skin is warm and dry. Respiratory: Respiratory effort is even, unlabored, Respiratory pattern is regular, symmetrical. GI: Reports nausea. 23:13 General: "I feel very anxious right now". as6 Vital Signs: 20:29 BP 109 / 78; Pulse 78; Resp 18; Temp 98.4; Pulse Ox 99% on R/A; Weight 102.06 kg; pf1 Height 5 ft. 3 in. (160.02 cm); Pain 8/10; 21:42 BP 114 / 68; Pulse 72; Resp 17 S; Pulse Ox 100% on R/A; as6 23:13 BP 113 / 69; Pulse 61; Resp 18 S; Pulse Ox 99% on R/A; as6 20:29 Body Mass Index 39.86 (102.06 kg, 160.02 cm) pf1 ED Course: 20:20 Patient arrived in ED. rg4 20:33 Triage completed. pf1 20:35 Patient has correct armband on for positive identification. pf1 20:39 Omega James PA is PHCP. cp 20:39 Moses Reyes MD is Attending Physician. cp 21:34 Reagan Talbot, THERESA is Primary Nurse. as6 21:43 Arm band placed on. as6 21:50 CT Head Brain wo Cont In Process Unspecified. EDMS 22:41 Inserted saline lock: 20 gauge in right antecubital area, using aseptic technique. as6 Blood collected. 22:42 BMP Sent. as 22:42 CBC with Diff Sent. as6 22:42 Urine Culture Sent. 10/11 00:25 No provider procedures requiring assistance completed. IV discontinued, intact, as bleeding controlled, No redness/swelling at site. Pressure dressing applied. Administered Medications: 10/10 21:42 Drug: Tylenol 1000 mg Route: PO; 10/11 00:24 Follow up: Response: No adverse reaction 10/10 22:42 Drug: NS 0.9% 1000 ml Route: IV; Rate: 1 bolus; Site: right antecubital; 10/11 00:24 Follow up: Response: No adverse reaction; IV Status: Completed infusion; IV Intake: as6 1000ml 10/10 22:42 Drug: Reglan (metoCLOPramide) 10 mg Route: IVP; Site: right antecubital; 10/11 00:24 Follow up: Response: No adverse reaction 10/10 22:42 Drug: Benadryl (diphenhydrAMINE) 25 mg Route: IVP; Site: right antecubital; 10/11 00:24 Follow up: Response: No adverse reaction 10/10 22:43 Drug: Decadron - Dexamethasone 10 mg Route: IVP; Site: right antecubital; 10/11 00:24 Follow up: Response: No adverse reaction 10/10 23:19 Drug: Ketorolac 15 mg Route: IVP; Site: right antecubital; 10/11 00:25 Follow up: Response: No adverse reaction 10/10 23:19 Drug: Rocephin (cefTRIAXone) 1 grams Route: IV; Rate: calculated rate; Site: right as6 antecubital; 10/11 00:25 Follow up: Response: No adverse reaction; IV Status: Completed infusion; IV Intake: [id number] 00:24 Drug: Potassium Effervescent Tablet 50 mEq Route: PO; as6 00:25 Follow up: Response: No adverse reaction as6 Medication: 10/10 21:43 VIS not applicable for this client. as6 Intake: 10/11 00:24 IV: 1000ml; Total: 1000ml. as6 00:25 IV: 10ml; Total: 1010ml. as6 Outcome: 00:07 Discharge ordered by . celestino 00:25 Discharged to home ambulatory, with significant other. as6 00:25 Condition: stable 00:25 Discharge instructions given to patient, Instructed on discharge instructions, follow up and referral plans. medication usage, Demonstrated understanding of instructions, follow-up care, medications, Prescriptions given X 4. 00:26 Patient left the ED. as6 Signatures: Dispatcher [employer] EDMS Omega James PA PA cp Garcia, Rubi rg4 Reagan Talbot RN RN as6 Shantel victor RN RN pf1
[2022-10-11] MEDS ORDERED: POTASSIUM 25 MEQ EFFERV TAB ONE (00:20)
[2022-10-11 01:56] VITALS: TEMP 98.4
[2022-10-11 02:04] VITALS: BP 113/69; O2SAT 99
== END 2022-10-11 00:26 | disposition home or self-care (01) ==
LOC: ER 20:17
DX: R51.9 Headache, unspecified (principal); N39.0 Urinary tract infection, site not specified; D64.9 Anemia, unspecified; F17.210 Nicotine dependence, cigarettes, uncomplicated
CPT/HCPCS: 96365; 96361; 87088; 85025; 87086; 80048; 36415; 81025; 70450; 96375; 99284; J2765; J1200; J1100; J7030; 81003; 81015; 87077; 87186

== ENCOUNTER 2024-03-18 07:06 | Emergency (ER) | payer OTHER ==
[2024-03-18] MEDS ORDERED: ASPIRIN 81 MG CHEWABLE TABLET ONE (07:21)
--- NOTE | 2024-03-18 07:55 | RAD REPORT ---
EXAM DESCRIPTION: RAD - Chest Single View - 03/18/2024 7:50 am CLINICAL HISTORY: RT SIDED CHEST PAIN COMPARISON: Chest Pa And Lat (2 Views) dated 08/13/2019; Chest Single View dated 06/28/2019; Chest S jackeline View dated 03/07/2019; Chest Single View dated 11/01/2018 FINDINGS: Lines: None. Lungs: No evidence of edema or pneumonia. Pleural: No significant pleural effusions or pneumothorax. Cardiac: The heart size is within normal limits. Mediastinum: Within normal limits. Bones: No acute fractures. Other: None IMPRESSION: No acute cardiopulmonary disease.
[2024-03-18 08:07] LABS: Absolute Eosinophils 0.1 K/uL (0-0.5); Absolute Lymphocytes (CBC) 1.6 K/uL (0.7-4.9); Absolute Monocytes 0.4 K/uL (0.1-1.3); Absolute Neutrophil 3.8 K/uL (1.8-8.0); Basophils % 0.2 % (0-1.3); Eosinophils % 2.3 % (0-4.4); Hematocrit 33.3 % (36.0-45.0); Hemoglobin 10.9 g/dL (12.0-15.0); Lymphocytes % 27.4 % (15.3-44.8); MCH 26.2 pg (27.0-35.0); MCHC 32.8 g/dL (32.0-36.0); MPV 9.9 fL (7.6-11.3); Monocytes % 6.6 % (3.3-12.3); Neutrophils % 63.5 % (41.7-73.7); Platelets 235 thou/uL (152-406); RBC Red Blood Cell Count 4.16 M/uL (3.86-4.86); Red Cell Distribution Width 16.4 % (12.1-15.2)
[2024-03-18 08:17] LABS: PT Prothrombin Time 11.2 SECONDS (9.4-12.5); Protime INR 1.02
[2024-03-18 08:21] LABS: ALT/SGPT 20 U/L (13-56); Albumin 3.3 g/dL (3.4-5.0); Alkaline Phosphatase 73 U/L (45-117); Anion Gap 8.3 mEq/L (5.0-15.0); BUN Blood Urea Nitrogen 12 mg/dL (7-18); Bicarbonate 25 mEq/L (21-32); Bilirubin Total 0.4 mg/dL (0.2-1.0); Globulin 3.3 g/dL (2.3-3.5); Glomerular Filtration Rate 115 ml/min (=/>90); Glucose Level 102 mg/dL (74-106); Magnesium 2.2 mg/dL (1.6-2.4); NT PRO-BNP 57 pg/mL (<125); Potassium 3.3 mEq/L (3.5-5.1); Protein, Total 6.6 g/dL (6.4-8.2); Sodium Level 140 mEq/L (136-145)
[2024-03-18 08:30] LABS: AST/SGOT < 10 U/L (15-37); Bilirubin Direct < 0.2 mg/dL (0-0.2); Bilirubin Indirect, Calculated 0.2 mg/dL (0.2-0.8); Troponin High Sensitivity < 3.0 pg/mL (<58.9)
--- NOTE | 2024-03-18 10:32 | RAD REPORT ---
EXAM DESCRIPTION: CT - Chest For Pe Angio - 03/18/2024 10:21 am CLINICAL HISTORY: Pain COMPARISON: Chest For Pe Angio dated 03/07/2019 TECHNIQUE: Dynamically enhanced axial 3 mm thick images of the chest were obtained during administra tion of <100> mL Isovue 370 IV contrast. Coronal and oblique reconstruction images were generated and reviewed. Exam utilizes a protocol for optimal evaluation of pulmonary arterial tree. Maximum intensity projections 3D imaging was utilized All CT scans are performed using dose optimization technique as appropriate and may include automated exposure control or mA/KV adjustment according to patient size. FINDINGS: Chest Wall: No suspicious thyroid nodules or pathologic lymphadenopathy. Lungs: No acute abnormality. Mild nonspecific bronchial wall thickening. Pleura: No significant effusions or pneumothorax. Mediastinum/sunil: No pathologic lymphadenopathy. Pulmonary arteries/Aorta: No filling defect identified. No aortic aneurysm. Heart: No significant pericardial effusion. Normal heart size. Upper abdomen: No acute abnormality. Bones: No acute abnormality. IMPRESSION: Negative for pulmonary embolism. No other acute findings in the chest.
--- NOTE | 2024-03-18 10:39 | ER ---
Nurse's Notes [facility] Name: Suzy Hammer Age: 38 yrs Sex: Female : 1985 Arrival Date: 03/18/2024 Time: 07:06 Bed 7 Private MD: Diagnosis: Chest pain, unspecified;Strain of muscle and tendon of front wall of thorax;Hypokalemia Presentation: 03/18 07:20 Chief complaint: Patient states: right sided chest pain x 1 month ago, worse during the aa5 night, pt states "It kept waking me up during the night so I got worried". Pt also reports pain is aggravated by taking a deep breath. 07:20 Coronavirus screen: At this time, the client does not indicate any symptoms associated aa5 with coronavirus-19. Ebola Screen: Patient denies travel to an Ebola-affected area in the 21 days before illness onset. Initial Sepsis Screen: Does the patient meet any 2 criteria? No. Patient's initial sepsis screen is negative. Does the patient have a suspected source of infection? No. Patient's initial sepsis screen is negative. Risk Assessment: Do you want to hurt yourself or someone else? Patient reports no desire to harm self or others. Onset of symptoms was February 2024. 07:20 Acuity: YULIANA 3 aa5 07:20 Method Of Arrival: Ambulatory aa5 Historical: - Allergies: 07:19 No Known Drug Allergies; ph - PMHx: 07:19 Anemia; headache; ph - PSHx: 07:19 section; Cholecystectomy; ph - Immunization history:: Adult Immunizations unknown. - Infectious Disease History:: Denies. - Social history:: Smoking status: Patient reports the use of cigarette tobacco products. Screenin:27 [facility] ED Fall Risk Assessment (Adult) History of falling in the last 3 months, ph including since admission No falls in past 3 months (0 pts) Confusion or Disorientation No (0 pts) Intoxicated or Sedated No (0 pts) Impaired Gait No (0 pts) Mobility Assist Device Used No (0 pt) Altered Elimination No (0 pt) Score/Fall Risk Level 0 - 2 = Low Risk Oriented to surroundings, Maintained a safe environment, Hourly rounding (assess needs \\T\\ fall precautionary measures) done. Abuse screen: Denies threats or abuse. Denies injuries from another. Nutritional screening: No deficits noted. Tuberculosis screening: No symptoms or risk factors identified. 07:29 [facility] ED Fall Risk Assessment (Adult) History of falling in the last 3 months, kc6 including since admission No falls in past 3 months (0 pts) Confusion or Disorientation No (0 pts) Intoxicated or Sedated No (0 pts) Impaired Gait No (0 pts) Mobility Assist Device Used No (0 pt) Altered Elimination No (0 pt) Score/Fall Risk Level 0 - 2 = Low Risk. Abuse screen: Denies threats or abuse. Denies injuries from another. Nutritional screening: No deficits noted. Tuberculosis screening: No symptoms or risk factors identified. Assessment: 07:26 General: Appears in no apparent distress. comfortable, Behavior is calm, cooperative, ph appropriate for age. Pain: Complains of pain in anterior aspect of right upper chest Pain does not radiate. Pain began approx 1 month. Neuro: Level of Consciousness is awake, alert, obeys commands, Oriented to person, place, time, situation. Cardiovascular: Reports chest pain, Chest pain is located in right anterior chest wall is aggravated by breathing. Respiratory: Airway is patent Respiratory effort is even, unlabored. Derm: Skin is pink, warm \\T\\ dry. 11:15 Reassessment: Patient appears in no apparent distress at this time. Patient and/or ph family updated on plan of care and expected duration. Pain level reassessed. Patient is alert, oriented x 3, equal unlabored respirations, skin warm/dry/pink. Vital Signs: 07:20 BP 116 / 69; Pulse 73; Resp 18 S; Temp 97.5(TE); Pulse Ox 100% on R/A; Weight 106.59 kg aa5 (R); Height 5 ft. 3 in. (R); 08:45 BP 108 / 72; Pulse 80; Resp 18; Pulse Ox 100% on R/A; ph 10:10 BP 98 / 76; Pulse 76; Resp 18; Pulse Ox 100% on R/A; ph 11:15 BP 106 / 72; Pulse 68; Resp 18; Temp 97.5; Pulse Ox 100% on R/A; ph 07:20 Body Mass Index 41.63 (106.59 kg, 160.02 cm) aa5 ED Course: 07:11 Patient arrived in ED. im 07:12 Omega Valadez MD is Attending Physician. estela 07:19 Olga Swartz, RN is Primary Nurse. ph 07:20 Patient has correct armband on for positive identification. Placed in gown. Bed in low ph position. Call light in reach. Side rails up X 1. Client placed on continuous cardiac and pulse oximetry monitoring. NIBP monitoring applied. classroom monitor on. Door closed. Noise minimized. Warm blanket given. 07:22 Triage completed. aa5 07:29 Arm band placed on. kc6 07:32 EKG done, by ED staff, reviewed by Omega Valadez MD. O2 via room air. ph 07:45 Initial lab(s) drawn, by ks, sent to lab. Missed attempt(s): 22 gauge in right ph antecubital area. Bleeding controlled, band aid applied, catheter tip intact. 09:11 Inserted saline lock: 22 gauge in left antecubital area, using aseptic technique. ph 10:[address] via wheelchair. ph 10:23 Chest For Pe Angio In Process Unspecified. EDMS 10:38 Ishmael Kellogg MD is Referral Physician. estela 10:57 Extrem Venous W Compress Jose In Process Unspecified. EDMS 11:15 No provider procedures requiring assistance completed. IV discontinued, intact, ph bleeding controlled, No redness/swelling at site. Pressure dressing applied. Administered Medications: 07:28 Drug: Aspirin PO 81 mg PO once Route: PO; kc6 11:20 Follow up: Response: No adverse reaction ph 10:55 Not Given (Other Intervention Used): ns 0.9% 500 ml IV at bolus once ph 11:03 Drug: Potassium PO Effervescent Tablet 25 mEq PO once; dissolve in 4 ounces of water or ph juice Route: PO; 11:19 Follow up: Response: No adverse reaction ph Medication: 07:19 VIS not applicable for this client. ph Outcome: 10:38 Discharge ordered by . estela 11:19 Discharged to home ambulatory, ph 11:19 Condition: good 11:19 Discharge instructions given to patient, Instructed on discharge instructions, follow up and referral plans. medication usage, Demonstrated understanding of instructions, follow-up care, medications, Prescriptions given X 2, 11:20 Patient left the ED. ph Signatures: Dispatcher [employer] EDTX Omega Valadez MD MD cha Calderon, Audri, RN RN aa5 Olga Swartz, RN RN ph Yaquelin Mauricio, RN RN kc6 Beckie Martinez
--- NOTE | 2024-03-18 10:39 | EDPHYS ---
Physician Documentation [facility] Name: Suzy Hammer Age: 38 yrs Sex: Female : 1985 Arrival Date: 03/18/2024 Time: 07:06 Bed 7 Private MD: ED Physician Omega Valadez HPI: 03/18 08:00 This 38 yrs old Female presents to ER via Ambulatory with complaints of Chest estela Pain. 08:00 The patient or guardian reports chest pain that is located primarily in the anterior estela chest wall. Historical: - Allergies: 07:19 No Known Drug Allergies; ph - PMHx: 07:19 Anemia; headache; ph - PSHx: 07:19 section; Cholecystectomy; ph - Immunization history:: Adult Immunizations unknown. - Infectious Disease History:: Denies. - Social history:: Smoking status: Patient reports the use of cigarette tobacco products. ROS: 08:01 Constitutional: Negative for fever, chills, and weight loss, Eyes: Negative for injury, estela pain, redness, and discharge, ENT: Negative for injury, pain, and discharge, Neck: Negative for injury, pain, and swelling, Cardiovascular: Negative for chest pain, palpitations, and edema, Respiratory: Negative for shortness of breath, cough, wheezing, and pleuritic chest pain, Abdomen/GI: Negative for abdominal pain, nausea, vomiting, diarrhea, and constipation, Back: Negative for injury and pain, : Negative for injury, bleeding, discharge, and swelling, MS/Extremity: Negative for injury and deformity, Skin: Negative for injury, rash, and discoloration, Neuro: Negative for headache, weakness, numbness, tingling, and seizure, Psych: Negative for depression, anxiety, suicide ideation, homicidal ideation, and hallucinations, Allergy/Immunology: Negative for hives, rash, and allergies, Endocrine: Negative for neck swelling, polydipsia, polyuria, polyphagia, and marked weight changes, Exam: 08:01 Constitutional: This is a well developed, well nourished patient who is awake, alert, estela and in no acute distress. Head/Face: Normocephalic, atraumatic. Eyes: Pupils equal round and reactive to light, extra-ocular motions intact. Lids and lashes normal. Conjunctiva and sclera are non-icteric and not injected. Cornea within normal limits. Periorbital areas with no swelling, redness, or edema. ENT: Nares patent. No nasal discharge, no septal abnormalities noted. Tympanic membranes are normal and external auditory canals are clear. Oropharynx with no redness, swelling, or masses, exudates, or evidence of obstruction, uvula midline. Mucous membranes moist. Neck: Trachea midline, no thyromegaly or masses palpated, and no cervical lymphadenopathy. Supple, full range of motion without nuchal rigidity, or vertebral point tenderness. No Meningismus. Cardiovascular: Regular rate and rhythm with a normal S1 and S2. No gallops, murmurs, or rubs. Normal PMI, no JVD. No pulse deficits. Respiratory: Lungs have equal breath sounds bilaterally, clear to auscultation and percussion. No rales, rhonchi or wheezes noted. No increased work of breathing, no retractions or nasal flaring. Abdomen/GI: Soft, non-tender, with normal bowel sounds. No distension or tympany. No guarding or rebound. No evidence of tenderness throughout. Back: No spinal tenderness. No costovertebral tenderness. Full range of motion. Skin: Warm, dry with normal turgor. Normal color with no rashes, no lesions, and no evidence of cellulitis. MS/ Extremity: Pulses equal, no cyanosis. Neurovascular intact. Full, normal range of motion. Neuro: Awake and alert, GCS 15, oriented to person, place, time, and situation. Cranial nerves II-XII grossly intact. Motor strength 5/5 in all extremities. Sensory grossly intact. Cerebellar exam normal. Normal gait. Psych: Awake, alert, with orientation to person, place and time. Behavior, mood, and affect are within normal limits. 08:01 Chest/axilla: Inspection: normal, no acute changes, Palpation: tenderness, that is mild, of the anterior aspect of right upper chest, 08:01 ECG was reviewed by the Attending Physician. 08:10 Musculoskeletal/extremity: DVT Exam: No signs of deep vein thrombosis. no pain, no estela swelling, no tenderness, negative Homans' sign noted on exam, no appreciated bluish discoloration, no erythema, no increased warmth, Vital Signs: 07:20 BP 116 / 69; Pulse 73; Resp 18 S; Temp 97.5(TE); Pulse Ox 100% on R/A; Weight 106.59 kg aa5 (R); Height 5 ft. 3 in. (R); 08:45 BP 108 / 72; Pulse 80; Resp 18; Pulse Ox 100% on R/A; ph 10:10 BP 98 / 76; Pulse 76; Resp 18; Pulse Ox 100% on R/A; ph 11:15 BP 106 / 72; Pulse 68; Resp 18; Temp 97.5; Pulse Ox 100% on R/A; ph 07:20 Body Mass Index 41.63 (106.59 kg, 160.02 cm) aa5 MDM: 07:12 Patient medically screened. estela 08:03 Differential diagnosis: abnormal EKG, acute myocardial infarction, acute pericarditis, estela anxiety, coronary artery disease chest wall pain, costochondritis, hiatal hernia, pericarditis, pleurisy, pulmonary embolus, stable angina, thoracic aortic disection, unstable angina. HEART Score: History: Slightly Suspicious (0), ECG: Normal (0), Age: < or = 45 years (0), Risk Factors: 1 or 2 risk factors (1), [+ Family HX] [Obesity] Troponin: < or = 1 x Normal Limit (0). TIFFANY Risk Score: TOTAL SCORE = 0. Data reviewed: vital signs, nurses notes, lab test result(s), EKG, radiologic studies, plain films. Consideration of Admission/Observation Escalation of care including admission/observation considered. I considered the following discharge prescriptions or medication management in the emergency department Medications were administered in the Emergency Department. See MAR. Independent interpretation of the following test(s) in the Emergency Department EKG: See my EKG interpretation above. Test considered but Not performed: CT: no ct chest. Historians other than the Patient: pt well informed. Care significantly affected by the following chronic conditions: anemia, headache. Counseling: I had a detailed discussion with the patient and/or guardian regarding the historical points, exam findings, and any diagnostic results supporting the discharge/admit diagnosis, lab results, radiology results, the need for outpatient follow up, for definitive care, a maxillofacial prosthetics dentist, a family practitioner. 03/18 08:11 Order name: CBC with Automated Diff; Complete Time: 08:12 EDMS 03/18 08:17 Order name: Protime (+INR); Complete Time: 08:40 EDMS 03/18 08:30 Order name: Basic Metabolic Panel; Complete Time: 08:40 EDMS 03/18 08:30 Order name: Liver (Hepatic) Function; Complete Time: 08:40 EDMS 03/18 08:30 Order name: Troponin High Sensitivity; Complete Time: 08:40 EDMS 03/18 08:30 Order name: NT PRO-BNP; Complete Time: 08:40 EDMS 03/18 08:30 Order name: Magnesium; Complete Time: 08:40 EDMS 03/18 08:43 Order name: D-Dimer; Complete Time: 08:53 EDMS 03/18 10:06 Order name: Basic Metabolic Panel EDMS 03/18 10:06 Order name: Liver (Hepatic) Function EDMS 03/18 10:06 Order name: Troponin High Sensitivity EDMS 03/18 10:06 Order name: NT PRO-BNP EDMS 03/18 10:06 Order name: Magnesium EDMS 03/18 10:06 Order name: CBC with Automated Diff EDMS 03/18 10:06 Order name: Protime (+INR) EDMS 03/18 10:06 Order name: D-Dimer EDMS 03/18 07:13 Order name: XRAY Chest (1 view) [facility] 03/18 07:56 Order name: RAD; Complete Time: 08:01 EDMS 03/18 10:06 Order name: Chest Single View EDMS 03/18 10:10 Order name: Chest For Pe Angio EDMS 03/18 10:10 Order name: Extrem Venous W Compress Jose EDMS 03/18 07:13 Order name: EKG; Complete Time: 10:03 [facility] 03/18 07:13 Order name: Cardiac monitoring; Complete Time: 07:28 [facility] 03/18 07:13 Order name: EKG - Nurse/Tech; Complete Time: 07:28 [facility] 03/18 07:13 Order name: IV Saline Lock; Complete Time: 07:40 [facility] 03/18 07:13 Order name: Labs collected and sent; Complete Time: 07:40 [facility] 03/18 07:13 Order name: O2 Per Protocol; Complete Time: 07:17 [facility] 03/18 07:13 Order name: O2 Sat Monitoring; Complete Time: 07:17 [facility] EC:01 Rate is 57 beats/min. Rhythm is regular. QRS [place] is Normal. [place] interval is normal. QT estela interval is normal. No Q waves. T waves are Normal. No ST changes noted. Clinical impression: Normal ECG, Sinus bradycardia, and No evidence of ischemia. Interpreted by me. Reviewed by me. Administered Medications: 07:28 Drug: Aspirin PO 81 mg PO once Route: PO; kc6 11:20 Follow up: Response: No adverse reaction ph 10:55 Not Given (Other Intervention Used): ns 0.9% 500 ml IV at bolus once ph 11:03 Drug: Potassium PO Effervescent Tablet 25 mEq PO once; dissolve in 4 ounces of water or ph juice Route: PO; 11:19 Follow up: Response: No adverse reaction ph Disposition Summary: 03/18/24 10:38 Discharge Ordered Notes: Location: Home estela Problem: new estela Symptoms: have improved estela Condition: Stable estela Diagnosis - Chest pain, unspecified estela - Strain of muscle and tendon of front wall of thorax estela - Hypokalemia estela Followup: estela - With: Private Physician - When: 2 - 3 days - Reason: Recheck today's complaints, Re-evaluation by your physician Followup: estela - With: Ishmael Kellogg MD - When: 2 - 3 days - Reason: Recheck today's complaints, Re-evaluation by your physician Discharge Instructions: - Discharge Summary Sheet estela - Nonspecific Chest Pain, Adult estela - Chest Wall Pain estela - Potassium Content of Foods estela - Nonspecific Chest Pain, Adult, [id number] estela - Aspirin and Your Heart estela - Hypokalemia estela Forms: - Medication Reconciliation Form estela - Antibiotic Education estela - Prescription Opioid Use estela - Patient Portal Instructions estela - Leadership Thank You Letter estela - Work release form ph Prescriptions: - Ibuprofen 600 mg Oral Tablet - take 1 tablet ORAL route every 6 hours As needed take with food; 30 tablet; estela Refills: 0, Product Selection Permitted - Medrol (Rudy) 4 mg Oral Tablets, Dose Pack - take 1 tablet ORAL route as directed - follow package instructions; 1 packet; estela Refills: 0, Product Selection Permitted Signatures: Dispatcher [employer] EDOmega Fisher MD MD cha Calderon, Audri, RN RN aa5 Olga Swartz RN RN Yaquelin Kendall RN RN kc6 Corrections: (The following items were deleted from the chart) 10:05 10:05 Extrem Venous W Compression Jose+US.RAD.BRZ ordered. EDMS EDMS 10:05 10:05 Chest For PE Angio+CT.RAD.BRZ ordered. EDMS EDMS
[2024-03-18] MEDS ORDERED: POTASSIUM 25 MEQ EFFERV TAB ONE (10:56)
--- NOTE | 2024-03-18 11:16 | RAD REPORT ---
EXAM DESCRIPTION: US - Extrem Venous W Compress Jose - 03/18/2024 10:55 am CLINICAL HISTORY: Pain COMPARISON: Extrem Venous W Compress Jose dated 03/07/2019 TECHNIQUE: Real-time sonographic evaluation of the lower extremity deep venous systems was performed using color Doppler, grayscale, and compression. FINDINGS: Bilateral lower extremities. Normal compressibility, flow augmentation, phasic flow and spontaneous flow is identified in both the left and right lower extremity deep venous systems. No intraluminal filling defects seen. IMPRESSION: No DVT in either lower extremity.
[2024-03-18 11:33] VITALS: BP 106/72; TEMP 97.5; O2SAT 100
--- NOTE | 2024-03-19 14:35 | EKG ---
Test Date: 2024-03-18 Test Time: 07:26:28 Jalousies Installer: ODALIS MEASUREMENT RESULTS: Intervals: Rate: 57 ME: 142 QRSD: 88 QT: 416 QTc: 404 [place]: P: 60 ME: 142 QRS: 56 T: 13 INTERPRETIVE STATEMENTS: Sinus bradycardia Otherwise normal ECG Compared to ECG 06/28/2019 21:51:05 Sinus rhythm no longer present Electronically Signed On 03-19-24 14:32:54 CDT by Ishmael Kellogg
== END 2024-03-18 11:20 | disposition home or self-care (01) ==
LOC: ER 07:06
DX: R07.89 Other chest pain (principal); S29.011A Strain of muscle and tendon of front wall of thorax, initial encounter; E87.6 Hypokalemia; F17.210 Nicotine dependence, cigarettes, uncomplicated
CPT/HCPCS: 93005; 85025; 80048; 36415; 83735; 85610; 85379; 80076; 84484; 83880; 71275; 71045; 93970; 99285; Q9967

== ENCOUNTER 2024-10-08 13:40 | Emergency (ER) | payer OTHER ==
[2024-10-08] MEDS ORDERED: ASPIRIN 81 MG CHEWABLE TABLET ONE (14:11)
[2024-10-08] MEDS ORDERED: FAMOTIDINE 20 MG/2 ML VIAL IV ONE (14:11)
[2024-10-08] MEDS ORDERED: NA CHLORIDE 0.9% 500 ML ONE (14:11)
[2024-10-08 14:14] LABS: Absolute Eosinophils 0.1 K/uL (0-0.5); Absolute Lymphocytes (CBC) 2.3 K/uL (0.7-4.9); Absolute Monocytes 0.4 K/uL (0.1-1.3); Absolute Neutrophil 4.8 K/uL (1.8-8.0); Basophils % 0.6 % (0-1.3); Eosinophils % 1.2 % (0-4.4); Hematocrit 33.2 % (36.0-45.0); Hemoglobin 11.4 g/dL (12.0-15.0); Lymphocytes % 29.4 % (15.3-44.8); MCH 26.5 pg (27.0-35.0); MCHC 34.4 g/dL (32.0-36.0); MCV 77.2 fL (80-100); MPV 9.9 fL (7.6-11.3); Monocytes % 5.6 % (3.3-12.3); Neutrophils % 63.2 % (41.7-73.7); Platelets 255 thou/uL (152-406); Red Cell Distribution Width 15.6 % (12.1-15.2)
[2024-10-08 14:21] LABS: D-Dimer 0.508 FEUug/mL (0-0.500); Protime INR 1.05
[2024-10-08 14:33] LABS: ALT/SGPT 23 U/L (13-56); AST/SGOT 14 U/L (15-37); Albumin 3.2 g/dL (3.4-5.0); Albumin/Globulin Ratio 0.9 (1.1-1.8); Alkaline Phosphatase 87 U/L (45-117); Anion Gap 9.6 mEq/L (5.0-15.0); BUN Blood Urea Nitrogen 9 mg/dL (7-18); Bicarbonate 26 mEq/L (21-32); Bilirubin Total 0.4 mg/dL (0.2-1.0); Globulin 3.6 g/dL (2.3-3.5); Glomerular Filtration Rate 94 ml/min (=/>90); Glucose Level 99 mg/dL (74-106); Lipase 27 U/L (13-75); NT PRO-BNP 42 pg/mL (<125); Potassium 3.6 mEq/L (3.5-5.1); Protein, Total 6.8 g/dL (6.4-8.2); Sodium Level 140 mEq/L (136-145)
[2024-10-08 14:34] LABS: Bilirubin Direct < 0.2 mg/dL (0-0.2); Bilirubin Indirect, Calculated 0.2 mg/dL (0.2-0.8); Troponin High Sensitivity < 3.0 pg/mL (<58.9)
--- NOTE | 2024-10-08 14:41 | RAD REPORT ---
EXAM: Chest Single View HISTORY: CHEST PAIN COMPARISON: None. FINDINGS: LUNGS/PLEURA: The lungs are clear. No pleural effusions or pneumothorax. No pulmonary edema. MEDIASTINUM: The mediastinal silhouette is within normal limits. CARDIAC: The cardiac silhouette is within normal limits. UPPER ABDOMEN: No significant abnormality. BONES: No acute abnormality. LINES/TUBES/OTHER: N/A IMPRESSION: No evidence of acute cardiopulmonary disease.
[2024-10-08] MEDS ORDERED: dexAMETHasone 10 MG/ML VIAL ONE (14:43)
[2024-10-08 15:28] LABS: Specific Gravity 1.019 (1.005-1.030); Urine Bacteria <20 /HPF (<20); Urine Bilirubin NEGATIVE (Negative); Urine Blood Negative (Negative); Urine Clarity Extremely Turbid (Clear); Urine Color Light-Yellow (Yellow); Urine Crystals Unidentified Few /HPF (None Seen); Urine Culture Reflex Order NOT NEEDED; Urine Glucose NEGATIVE (Negative); Urine Ketones NEGATIVE (Negative); Urine Microscopic Reflex YN ORDER UMIC; Urine Nitrite NEGATIVE (Negative); Urine Protein NEGATIVE (Negative); Urine RBC <5 /HPF (None Seen); Urine Urobilinogen Normal (Normal); Urine WBC <5 /HPF (<5); Urine Yeast (Budding) Trace /HPF (None Seen); Urine pH 7.5 (5.0-7.0)
--- NOTE | 2024-10-08 15:35 | RAD REPORT ---
EXAMINATION: US LOWER EXTREMITY VENOUS DOPPLER BILATERAL CLINICAL INDICATION: Female, 39 years old.Pain;Swelling TECHNIQUE: Complete bilateral duplex sonography of the lower extremity veins was performed. The exami nation included compression for vein patency, color Doppler imaging and flow augmentation in response to distal compression of the distal external iliac, common femoral, femoral, popliteal, andrea rick, tibial and great saphenous veins. [id number]. COMPARISON: No prior exams FINDINGS: Duplex sonography imaging demonstrates all deep examined to be fully compressible with spontaneous, p hasic and augmented flow bilaterally. IMPRESSION: No evidence of deep venous thrombosis seen in either lower extremity.
[2024-10-08 15:48] LABS: Specific Gravity 1.019 (1.005-1.030)
--- NOTE | 2024-10-08 16:20 | RAD REPORT ---
EXAMINATION: CT CERVICAL SPINE WITHOUT CONTRAST CLINICAL INDICATION: Female, 39 years old. Pain;Radiculopathy TECHNIQUE: Axial CT images through the cervical spine were obtained without intravenous contrast. Sag ittal and coronal reformatted images were created from the data set. One or more of the following dose reduction techniques were used: Automated exposure control, adjustment of the mA and/or kV accor ding to patient size, and/or iterative reconstruction. Unless otherwise specified, incidental findings do not require dedicated imaging follow-up. [id number]. COMPARISON: No prior exam. FINDINGS: ALIGNMENT: The cervical spine has normal alignment without scoliosis or spondylolisthesis. BONE: Vertebral body heights are maintained. No aggressive osseous lesions. DISCS: Disc heights are maintained. LEVELS: No significant spinal canal or neural foraminal stenosis. No visualized abnormality within th e spinal canal. SOFT TISSUE: No significant abnormalities in the soft tissue of the neck. The visualized lung apices are clear. IMPRESSION: No acute cervical spine abnormalities. No significant focal degenerative changes or findings to expla in radiculopathy. MRI may be able to better evaluate.
--- NOTE | 2024-10-08 16:21 | RAD REPORT ---
EXAMINATION: CTA CHEST PE CLINICAL INDICATION: Female, 39 years old. CHEST PAIN TECHNIQUE: This examination was performed according to an angiographic protocol with 3D post-processi ng. This involves 3D reconstructions, MIPs, volume rendered images and/or shaded surface rendering. One or more of the following dose reduction techniques were used: Automated exposure control, adjustm ent of the mA and/or kV according to patient size, and/or iterative reconstruction. Unless otherwise specified, incidental findings do not require dedicated imaging follow-up. [id number]. COMPARISON: 03/18/2024 FINDINGS: LOWER NECK: Visualized thyroid gland and soft tissues are normal. LUNGS AND AIRWAYS: Airways are clear. No evidence of airspace or interstitial process.No suspicious a nd/or stable pulmonary nodules. PLEURA: No pleural effusion. No pneumothorax. Hemidiaphragms are normally positioned. MEDIASTINUM AND LYMPH NODES: No mediastinal mass or fluid collection. Normal size mediastinal, hilar, and axillary lymph nodes. THORACIC AORTA: No thoracic aortic aneurysm. PULMONARY ARTERIES: Caliber is within normal limits. No pulmonary emboli identified. HEART: Normal heart size. No coronary calcifications.No significant pericardial effusion. OSSEOUS STRUCTURES AND CHEST WALL: UPPER ABDOMEN: No acute abnormalities. IMPRESSION: No evidence of pulmonary emboli to the subsegmental level. Lungs are clear.
--- NOTE | 2024-10-08 17:01 | EDPHYS ---
Physician Documentation [facility] Name: Suzy Hammer Age: 39 yrs Sex: Female : 1985 Arrival Date: 10/08/2024 Time: 13:40 Bed 15 Private MD: ED Physician Omega Valadez HPI: 10/08 14:39 This 39 yrs old Female presents to ER via Ambulatory with complaints of Chest estela Pain - Right side, Numbness Of Arm. 14:39 The patient or guardian reports chest pain that is located primarily in the anterior estela chest wall, right. The pain radiates to the right arm. Associated signs and symptoms: The patient has no apparent associated signs or symptoms. The chest pain is described as aching. Modifying factors: The symptoms are alleviated by remaining still, the symptoms are aggravated by movement. Severity of pain: At its worst the pain was mild moderate in the emergency department the pain is unchanged. The patient has not experienced similar symptoms in the past. 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 - Infectious Disease History:: Denies. - Family history:: not pertinent. - Social history:: Smoking status: Patient reports the use of cigarette tobacco products, denies chronic smoking, but will smoke occasionally. ROS: 14:39 Constitutional: Negative for fever, chills, and weight loss, Eyes: Negative for injury, estela pain, redness, and discharge, ENT: Negative for injury, pain, and discharge, Neck: Negative for injury, pain, and swelling, Respiratory: Negative for shortness of breath, cough, wheezing, and pleuritic chest pain, Abdomen/GI: Negative for abdominal pain, nausea, vomiting, diarrhea, and constipation, Back: Negative for injury and pain, : Negative for injury, bleeding, discharge, and swelling, Skin: Negative for injury, rash, and discoloration, Neuro: Negative for headache, weakness, numbness, tingling, and seizure, Psych: Negative for depression, anxiety, suicide ideation, homicidal ideation, and hallucinations, Allergy/Immunology: Negative for hives, rash, and allergies, Endocrine: Negative for neck swelling, polydipsia, polyuria, polyphagia, and marked weight changes, Hematologic/Lymphatic: Negative for swollen nodes, abnormal bleeding, and unusual bruising, 14:39 Cardiovascular: Positive for chest pain, of the anterior aspect of right upper chest and right breast, 14:39 MS/extremity: Positive for pain, of the right arm, Exam: 14:39 Constitutional: This is a well developed, well nourished patient who is awake, alert, estela and in no acute distress. Head/Face: Normocephalic, atraumatic. Eyes: Pupils equal round and reactive to light, extra-ocular motions intact. Lids and lashes normal. Conjunctiva and sclera are non-icteric and not injected. Cornea within normal limits. Periorbital areas with no swelling, redness, or edema. ENT: Nares patent. No nasal discharge, no septal abnormalities noted. Tympanic membranes are normal and external auditory canals are clear. Oropharynx with no redness, swelling, or masses, exudates, or evidence of obstruction, uvula midline. Mucous membranes moist. Neck: Trachea midline, no thyromegaly or masses palpated, and no cervical lymphadenopathy. Supple, full range of motion without nuchal rigidity, or vertebral point tenderness. No Meningismus. Cardiovascular: Regular rate and rhythm with a normal S1 and S2. No gallops, murmurs, or rubs. Normal PMI, no JVD. No pulse deficits. Respiratory: Lungs have equal breath sounds bilaterally, clear to auscultation and percussion. No rales, rhonchi or wheezes noted. No increased work of breathing, no retractions or nasal flaring. Abdomen/GI: Soft, non-tender, with normal bowel sounds. No distension or tympany. No guarding or rebound. No evidence of tenderness throughout. Back: No spinal tenderness. No costovertebral tenderness. Full range of motion. Skin: Warm, dry with normal turgor. Normal color with no rashes, no lesions, and no evidence of cellulitis. MS/ Extremity: Pulses equal, no cyanosis. Neurovascular intact. Full, normal range of motion., bilateral aka Neuro: Awake and alert, GCS 15, oriented to person, place, time, and situation. Cranial nerves II-XII grossly intact. Motor strength 5/5 in all extremities. Sensory grossly intact. Cerebellar exam normal. Normal gait. Psych: Awake, alert, with orientation to person, place and time. Behavior, mood, and affect are within normal limits. 14:39 Chest/axilla: Inspection: normal, Palpation: tenderness, that is mild, of the right clavicle, anterior aspect of right upper chest and right breast, Axilla: are normal, Breasts: are normal, Lymph nodes: lymphadenopathy is not appreciated, supraclavicular nodes, non-palpable, 14:39 ECG was reviewed by the Attending Physician. Vital Signs: 13:53 BP 122 / 74; Resp 14; Temp 98.3(O); Weight 108.86 kg; Height 5 ft. 3 in. ; Pain 7/10; ss 14:00 BP 105 / 58; Pulse 76; Resp 16; Pulse Ox 100% ; ss 15:00 BP 108 / 94; Pulse 91; Resp 16; Pulse Ox 100% ; ss 16:00 BP 105 / 58; Pulse 76; Resp 16; Pulse Ox 100% ; ss 16:00 BP 109 / 56; Pulse 76; Resp 16; Temp 98.4; Pulse Ox 99% ; ss 13:53 Body Mass Index 42.51 (108.86 kg, 160.02 cm) ss 13:53 Pain Scale: Adult ss MDM: 13:44 Medical Screening Exam initiated estela 14:45 Differential diagnosis: abnormal EKG, acute myocardial infarction, acute pericarditis, estela anxiety, coronary artery disease chest wall pain, Cholelithiasis esophagitis, herpes zoster, pancreatitis, peptic ulcer disease, pneumonia, pneumothorax, pulmonary embolus, stable angina, thoracic aortic disection, unstable angina. HEART Score: History: Slightly Suspicious (0), ECG: Normal (0), Age: < or = 45 years (0), Risk Factors: 1 or 2 risk factors (1), [+ Family HX] [Obesity] Troponin: < or = 1 x Normal Limit (0). TIFFANY Risk Score: TOTAL SCORE = 0. Data reviewed: vital signs, nurses notes, lab test result(s), EKG, radiologic studies, CT scan, plain films. Consideration of Admission/Observation Escalation of care including admission/observation considered. I considered the following discharge prescriptions or medication management in the emergency department Medications were administered in the Emergency Department. See MAR. Independent interpretation of the following test(s) in the Emergency Department EKG: See my EKG interpretation above. Test considered but Not performed: Ultrasound no gb usg. Historians other than the Patient: Spouse/Significant Other: spouse well informed. Care significantly affected by the following chronic conditions: anemia, [place]. 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 10/08 13:45 Order name: Basic Metabolic Panel; Complete Time: 14:34 estela 10/08 13:45 Order name: CBC with Diff; Complete Time: 14:34 10/08 13:45 Order name: LFT's; Complete Time: 14:34 10/08 13:45 Order name: Magnesium; Complete Time: 14:34 10/08 13:45 Order name: NT PRO-BNP; Complete Time: 14:34 10/08 13:45 Order name: PT-INR; Complete Time: 14:34 10/08 13:45 Order name: Troponin HS; Complete Time: 14:34 10/08 13:45 Order name: Lipase; Complete Time: 14:34 10/08 13:45 Order name: D-Dimer; Complete Time: 14:34 10/08 13:45 Order name: Urinalysis w/ reflexes; Complete Time: 15:37 10/08 13:45 Order name: PREGU; Complete Time: 16:16 10/08 13:45 Order name: XRAY Chest (1 view); Complete Time: 15:13 10/08 14:36 Order name: CT C Spine; Complete Time: 16:59 10/08 14:36 Order name: US Extremity Venous W Compression Jose; Complete Time: 15:37 10/08 14:36 Order name: CT Chest For PE Angio; Complete Time: 16:59 10/08 13:45 Order name: Cardiac monitoring; Complete Time: 14:18 10/08 13:45 Order name: EKG - Nurse/Tech; Complete Time: 14:17 10/08 13:45 Order name: IV Saline Lock; Complete Time: 14:17 10/08 13:45 Order name: Labs collected and sent; Complete Time: [facility] 10/08 13:45 Order name: O2 Per Protocol; Complete Time: 14:17 [facility] 10/08 13:45 Order name: O2 Sat Monitoring; Complete Time: 14:18 [facility] EC:39 Rate is 75 beats/min. Rhythm is regular. QRS [place] is Normal. [place] interval is normal. QRS estela interval is normal. QT interval is normal. No Q waves. T waves are Normal. Clinical impression: Normal ECG and No evidence of ischemia. Interpreted by me. Reviewed by me. Administered Medications: 14:17 Drug: Aspirin PO Chewable Tablet 324 mg PO once; 81 mg tablets x 4 Route: PO; ss 14:53 Follow up: Response: No adverse reaction ss 14:17 Drug: NS 0.9% IV 500 ml 500 ml IV at 1 bolus once; to be given as a bolus over 30 ss minutes Volume: 500 ml; Route: IV; Rate: 1 bolus; Site: right antecubital; 15:42 Follow up: Response: No adverse reaction; IV Status: Completed infusion; IV Intake: ss 500ml 14:17 Drug: Famotidine IVP 20 mg IVP once; dilute with 10 mL 0.9% NaCl; give over 2 minutes ss Route: IVP; Site: right antecubital; 14:53 Follow up: Response: No adverse reaction ss 14:53 Drug: Decadron - Dexamethasone IVP 10 mg IVP once Route: IVP; Site: right antecubital; ss 15:42 Follow up: Response: No adverse reaction ss Disposition Summary: 10/08/24 17:00 Discharge Ordered Notes: Location: Home(10/08/24 17:00) estela Problem: new(10/08/24 17:00) estela Symptoms: have improved(10/08/24 17:00) estela Condition: Stable(10/08/24 17:00) estela Diagnosis - Chest pain, unspecified(10/08/24 17:00) estela - Unspecified symptoms and signs involving the musculoskeletal system estela Followup: estela - With: Private Physician - When: 2 - 3 days - Reason: Recheck today's complaints, Continuance of care, Re-evaluation by your physician Followup: estela - With: Ishmael Kellogg MD - When: 2 - 3 days - Reason: Recheck today's complaints, Continuance of care, Re-evaluation by your physician [facility] - With: Gavin Washington, DO - When: 2 - 3 days - Reason: Recheck today's complaints, Re-evaluation by your physician Discharge Instructions: - Discharge Summary Sheet [facility] - Nonspecific Chest Pain, Adult estela - Chest Wall Pain estela - Musculoskeletal Pain estela - Chest Wall Pain, [id number] estela - Nonspecific Chest Pain, Adult, [id number] - Aspirin and Your Heart [facility] Forms: - Medication Reconciliation Form [facility] - Antibiotic Education [facility] - Prescription Opioid Use [facility] - Patient Portal Instructions [facility] - Leadership Thank You Letter [facility] Prescriptions: - dexamethasone 4 mg Oral tablet - take 1 tablet ORAL route once daily begin 10/09/24; 4 tablet; Refills: 0, [facility] Product Selection Permitted - Ibuprofen 600 mg Oral Tablet - take 1 tablet ORAL route every 6 hours As needed take with food; 30 tablet; [facility] Refills: 0, Product Selection Permitted - Pepcid 20 mg Oral tablet - take 1 tablet ORAL route every 12 hours for 21 days; 42 tablet; Refills: 0, [facility] Product Selection Permitted Signatures: Dispatcher [employer] EDMS Omega Valadez MD MD cha Blanchard, Shelby RN RN ss Corrections: (The following items were deleted from the chart) 13:46 13:46 BASIC METABOLIC PANEL+C.LAB.BRZ ordered. EDMS EDMS 13:46 13:46 CBC+H.LAB.BRZ ordered. EDMS EDMS 13:46 13:46 HEPATIC FUNCTION+C.LAB.BRZ ordered. EDMS EDMS 13:46 13:46 MAGNESIUM+C.LAB.BRZ ordered. EDMS EDMS 13:46 13:46 PROBNP+C.LAB.BRZ ordered. EDMS EDMS 13:46 13:46 PROTIME (+INR)+COAG.LAB.BRZ ordered. EDMS EDMS 13:46 13:46 Troponin High Sensitivity+C.LAB.BRZ ordered. EDMS EDMS 13:46 13:46 LIPASE+C.LAB.BRZ ordered. EDMS EDMS 13:46 13:46 D-DIMER+COAG.LAB.BRZ ordered. EDMS EDMS 13:46 13:46 Urinalysis+U.LAB.BRZ ordered. EDMS EDMS 13:46 13:46 Test, Urine+UC.LAB.BRZ ordered. EDMS EDMS 13:46 13:46 Chest Single View+RAD.RAD.BRZ ordered. EDMS EDMS 14:01 14:01 Observation estela estela 14: 14:01 Grisel Ganga counts include 234 beds at the [facility] 14: 14:01 Telemetry/MedSurg (observation) estela estela 14:01 14:01 Fair estela estela 14: 14:01 new counts include 234 beds at the [facility] 14: 14:01 have improved counts include 234 beds at the [facility] 14: 14:01 Standard counts include 234 beds at the [facility] 14: 14:01 counts include 234 beds at the [facility] 14: 14:01 Chest pain, unspecified counts include 234 beds at the [facility] 14: 14:01 Adverse effect of insulin and oral hypoglycemic [antidiabetic] drugs counts include 234 beds at the [facility] 14: 14:01 Essential (primary) hypertension counts include 234 beds at the [facility] 14:36 14:36 C Spine Wo Con+CT.RAD.BRZ ordered. EDMS EDMS 14:36 14:36 Extrem Venous W Compression Jose+US.RAD.BRZ ordered. EDMS EDMS 14:37 14:36 Chest For PE Angio+CT.RAD.BRZ ordered. EDMS EDMS
--- NOTE | 2024-10-08 17:01 | ER ---
Nurse's Notes [facility] Name: Suzy Hammer Age: 39 yrs Sex: Female : 1985 Arrival Date: 10/08/2024 Time: 13:40 Bed 15 Private MD: Diagnosis: Chest pain, unspecified;Unspecified symptoms and signs involving the musculoskeletal system Presentation: 10/08 13:53 Chief complaint: Patient states: R sided check/ shoulder discomfort that radiates down ss R arm/ elbow with numbness/tingling to 2nd, 3rd and 4th fingers since yesterday around 1500. Coronavirus screen: Client denies travel out of the [place] in the last 14 days. Ebola Screen: Patient denies exposure to infectious person. Patient denies travel to an Ebola-affected area in the 21 days before illness onset. Initial Sepsis Screen: Does the patient meet any 2 criteria? No. Patient's initial sepsis screen is negative. Does the patient have a suspected source of infection? No. Patient's initial sepsis screen is negative. Risk Assessment: Do you want to hurt yourself or someone else? Patient reports no desire to harm self or others. Onset of symptoms was October 07, 2024 at 15:00. 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 - Infectious Disease History:: Denies. - Family history:: not pertinent. - Social history:: Smoking status: Patient reports the use of cigarette tobacco products, denies chronic smoking, but will smoke occasionally. Screenin:46 [facility] ED Fall Risk Assessment (Adult) History of falling in the last 3 months, ss including since admission No falls in past 3 months (0 pts) Confusion or Disorientation No (0 pts) Intoxicated or Sedated No (0 pts) Impaired Gait No (0 pts) Mobility Assist Device Used No (0 pt) Altered Elimination No (0 pt) Score/Fall Risk Level 0 - 2 = Low Risk Maintained a safe environment, Provided non-skid footwear, Hourly rounding (assess needs \T\ fall precautionary measures) done. Abuse screen: Denies threats or abuse. Nutritional screening: No deficits noted. Tuberculosis screening: No symptoms or risk factors identified. Assessment: 15:43 General: Appears uncomfortable, obese, well groomed, well developed, Behavior is calm, ss cooperative, appropriate for age, Reports R sided check/ shoulder discomfort that radiates down R arm/ elbow with numbness/tingling to 2nd, 3rd and 4th fingers since yesterday around 1500. 15:46 Pain: Complains of pain in chest and right breast and anterior aspect of right upper ss chest Pain radiates to right clavicle and right arm Pain currently is 8 out of 10 on a pain scale. Quality of pain is described as sharp, shooting, numb, Pain began 1 day ago. Is continuous. Neuro: Level of Consciousness is awake, alert, obeys commands, Oriented to person, place, time, situation, Appropriate for age. Cardiovascular: Patient's skin is warm and dry. Respiratory: Airway is patent Respiratory effort is even, unlabored, Respiratory pattern is regular, symmetrical. GI: No signs and/or symptoms were reported involving the gastrointestinal system. : No signs and/or symptoms were reported regarding the genitourinary system. EENT: No signs and/or symptoms were reported regarding the EENT system. Derm: Skin is intact, is healthy with good turgor, Skin is pink, warm \T\ dry. Musculoskeletal: Reports pain in right clavicle and right arm and chest and right breast and anterior aspect of right upper chest. Vital Signs: 13:53 BP 122 / 74; Resp 14; Temp 98.3(O); Weight 108.86 kg; Height 5 ft. 3 in. ; Pain 7/10; ss 14:00 BP 105 / 58; Pulse 76; Resp 16; Pulse Ox 100% ; ss 15:00 BP 108 / 94; Pulse 91; Resp 16; Pulse Ox 100% ; ss 16:00 BP 105 / 58; Pulse 76; Resp 16; Pulse Ox 100% ; ss 16:00 BP 109 / 56; Pulse 76; Resp 16; Temp 98.4; Pulse Ox 99% ; ss 13:53 Body Mass Index 42.51 (108.86 kg, 160.02 cm) ss 13:53 Pain Scale: Adult ss ED Course: 13:42 Patient arrived in ED. ra3 13:44 Omega Valadez MD is Attending Physician. estela 13:48 Ania Moore, RN is Primary Nurse. ss 13:55 Triage completed. ss 13:55 Arm band placed on right wrist. 14:00 Ganga Recinos is Hospitalizing Provider. estela 14:18 Initial lab(s) drawn, by ED staff, sent to lab. EKG done, by ED staff, reviewed by ayo Valadez MD. Inserted saline lock: 20 gauge in right antecubital area, using aseptic technique. 14:38 Radiology exam delayed due to lab results not completed at this time. (BUN/Creatinine) wi test not completed at this time. 14:39 XRAY Chest (1 view) In Process Unspecified. EDMS 15:31 US Extremity Venous W Compression Jose In Process Unspecified. EDMS 15:46 Patient has correct armband on for positive identification. Bed in low position. Call ss light in reach. Side rails up X2. Provided Education on: POC. Verbalized understanding.. Client placed on continuous cardiac and pulse oximetry monitoring. NIBP monitoring applied. color television console monitor on. Pulse ox on. NIBP on. 15:46 No provider procedures requiring assistance completed. Patient maintains SpO2 ss saturation greater than 95% on room air. 16:08 CT C Spine In Process Unspecified. EDMS 16:09 CT Chest For PE Angio In Process Unspecified. EDMS 17:00 Ishmael Kellogg MD is Referral Physician. [facility] 17:00 Gavin Washington DO is Referral Physician. [facility] 17:22 IV discontinued, intact, bleeding controlled, No redness/swelling at site. Pressure ss dressing applied. Administered Medications: 14:17 Drug: Aspirin PO Chewable Tablet 324 mg PO once; 81 mg tablets x 4 Route: PO; ss 14:53 Follow up: Response: No adverse reaction 14:17 Drug: NS 0.9% IV 500 ml 500 ml IV at 1 bolus once; to be given as a bolus over 30 ss minutes Volume: 500 ml; Route: IV; Rate: 1 bolus; Site: right antecubital; 15:42 Follow up: Response: No adverse reaction; IV Status: Completed infusion; IV Intake: ss 500ml 14:17 Drug: Famotidine IVP 20 mg IVP once; dilute with 10 mL 0.9% NaCl; give over 2 minutes ss Route: IVP; Site: right antecubital; 14:53 Follow up: Response: No adverse reaction ss 14:53 Drug: Decadron - Dexamethasone IVP 10 mg IVP once Route: IVP; Site: right antecubital; ss 15:42 Follow up: Response: No adverse reaction ss Medication: 15:46 VIS not applicable for this client. ss Intake: 15:42 IV: 500ml; Total: 500ml. ss Outcome: 14:01 Decision to Hospitalize by Provider. [facility] 17:00 Discharge ordered by . [facility] 17:22 Discharged to home ambulatory, with significant other, 17:22 Condition: stable 17:22 Discharge instructions given to patient, significant other, Instructed on discharge instructions, follow up and referral plans. medication usage, Demonstrated understanding of instructions, follow-up care, medications, Prescriptions given X 3, 17:23 Patient left the ED. ss Signatures: Dispatcher [employer] EDWY Omega Valadez MD MD cha Blanchard, Shelby, RN RN Xander Campbell Ruby ra3 Corrections: (The following items were deleted from the chart) 15:42 13:53 Chief complaint: Patient states: R sided check/ shoulder discomfort that radiates ss down R arm/ elbow with numbness/tingling to 2nd, 3rd and 4th fingers since yesterday around 1500. ss 15:47 15:43 General: Appears uncomfortable, obese, well groomed, well developed, Behavior is ss calm, cooperative, appropriate for age, Reports ss
[2024-10-08 17:52] VITALS: BP 109/56; TEMP 98.4; O2SAT 99
--- NOTE | 2024-10-10 13:00 | EKG ---
Test Date: 2024-10-08 Test Time: 13:56:54 Blanker Press Operator: ANGEL MEASUREMENT RESULTS: Intervals: Rate: 75 CA: 138 QRSD: 96 QT: 402 QTc: 448 [place]: P: 62 CA: 138 QRS: 56 T: 42 INTERPRETIVE STATEMENTS: Normal sinus rhythm Normal ECG Compared to ECG 06/07/2024 14:35:34 No significant changes Electronically Signed On 10-10-24 12:58:34 CHORUS MASTER by Luis Carlos Gil
== END 2024-10-08 17:23 | disposition home or self-care (01) ==
LOC: ER 13:40
DX: R07.9 Chest pain, unspecified (principal); R29.91 Unspecified symptoms and signs involving the musculoskeletal system; F17.210 Nicotine dependence, cigarettes, uncomplicated
CPT/HCPCS: 96361; 85025; 81001; 80048; 36415; 83735; 81025; 85610; 85379; 80076; 84484; 83690; 83880; 72125; 71275; 71045; 93970; 96375; 96374; 99285; Q9967; J1100; J7040; 93005

== ENCOUNTER 2024-10-30 05:22 | Emergency (ER) | payer OTHER ==
--- NOTE | 2024-10-30 05:33 | EDPHYS ---
Physician Documentation [facility] Name: Suzy Hammer Age: 39 yrs Sex: Female : 1985 Arrival Date: 10/30/2024 Time: 05:22 Bed Waiting Private MD: ED Physician Zackery Clay HPI: 10/30 05:35 This 39 yrs old Female presents to ER via Ambulatory with complaints of RT ec2 HAND NUMBNESS FOR APPROX 4 WKS. 05:35 Patient arrives today for evaluation of right hand numbness for the past 4 weeks. ec2 Patient reports that she has been experiencing paresthesias in digits 1 through 4 for the past 4 weeks. Patient reports no hand injury or trauma. Reports that she has not had her neck pain. Reports is isolated above the hand. Denies any more proximal paresthesias.. 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 - Infectious Disease History:: Denies. - Social history:: Smoking status: Patient reports the use of cigarette tobacco products, smokes one-half pack cigarettes per day, Patient/guardian denies using alcohol, street drugs. ROS: 05:36 Constitutional: as per hpi ec2 Exam: 05:36 Constitutional: GEN: NAD Head: atraumatic Eyes: EOMI Ears: External ears are ec2 normal. CV: regular rate LUNGS: no respiratory distress ABD: non-distended SKIN: no evidence of rashes MSK: no evidence of trauma, negative Phalen, negative Tinel sign. Intact sensation in the bilateral upper extremities, no focal deficit appreciated. Vital Signs: 05:27 BP 130 / 71; Pulse 69; Resp 16 S; Temp 97.6(O); Pulse Ox 100% on R/A; Weight 108.86 kg lg3 (R); Height 5 ft. 4 in. (R); 05:27 Body Mass Index 41.20 (108.86 kg, 162.56 cm) lg3 MDM: 05:24 Medical Screening Exam initiated ec2 05:36 Data reviewed: vital signs, nurses notes. ED course: Patient arrives today for ec2 paresthesias of the right hand. Given the distribution of this, I suspect ulnar neuropathy. Additionally considered carpal tunnel however negative Tinel and negative Phalen sign. Will treat the patient with steroids, gabapentin and have her follow-up with primary care doctor. Return precautions given.. 05:37 ED course: Additionally consider stroke however given distribution, lower suspicion for ec2 this additionally patient without any significant risk factors. Patient without any other focal deficits indicate this.. Administered Medications: 05:48 Drug: predniSONE PO 40 mg PO once Route: PO; lg3 05:48 Follow up: Response: No adverse reaction; Medication administered at discharge. lg3 05:48 Drug: Ketorolac IM 30 mg IM once Route: IM; Site: right deltoid; lg3 05:48 Follow up: Response: No adverse reaction; Medication administered at discharge. lg3 05:48 Drug: Gabapentin PO 600 mg PO once Route: PO; lg3 05:48 Follow up: Response: No adverse reaction; Medication administered at discharge. lg3 Disposition Summary: 10/30/24 05:32 Discharge Ordered Notes: Location: Home ec2 Condition: Stable ec2 Diagnosis - Mononeuropathy, unspecified ec2 - Ulnar Neuropathy ec2 Followup: ec2 - With: Private Physician - When: - Reason: Re-evaluation by your physician Discharge Instructions: - Discharge Summary Sheet ec2 - Neuropathic Pain ec2 - Ulnar Nerve Contusion ec2 Forms: - Medication Reconciliation Form ec2 - Antibiotic Education ec2 - Prescription Opioid Use ec2 - Patient Portal Instructions ec2 - Leadership Thank You Letter ec2 Prescriptions: - gabapentin 600 mg Oral tablet - take 1 tablet ORAL route daily; 14 tablet; Refills: 0, Product Selection ec2 Permitted - Prednisone 20 mg Oral Tablet - take 2 tablets ORAL route once daily for 5 days; 10 tablet; Refills: 0, Product ec2 Selection Permitted Signatures: Opal Arce RN RN lg3 Zackery Clay MD MD ec2 Corrections: (The following items were deleted from the chart) 05:32 05:31 Home Meds: Vitamin Oral; lg3 lg3
--- NOTE | 2024-10-30 05:33 | ER ---
Nurse's Notes [facility] Name: Suzy Hammer Age: 39 yrs Sex: Female : 1985 Arrival Date: 10/30/2024 Time: 05:22 Bed Waiting Private MD: Diagnosis: Mononeuropathy, unspecified;Ulnar Neuropathy Presentation: 10/30 05:27 Chief complaint: Patient states: right middle finger numbness X4 weeks. Coronavirus lg3 screen: Client denies travel out of the [place] in the last 14 days. At this time, the client does not indicate any symptoms associated with coronavirus-19. Ebola Screen: No symptoms or risks identified at this time. Initial Sepsis Screen: Does the patient meet any 2 criteria? No. Patient's initial sepsis screen is negative. Does the patient have a suspected source of infection? No. Patient's initial sepsis screen is negative. Risk Assessment: Do you want to hurt yourself or someone else? Patient reports no desire to harm self or others. Onset of symptoms is unknown. 05:27 Method Of Arrival: Ambulatory lg3 05:27 Acuity: YULIANA 4 lg3 Triage Assessment: 05:31 General: Appears in no apparent distress. comfortable, Behavior is calm, cooperative. lg3 Pain: Denies pain. EENT: No deficits noted. No signs and/or symptoms were reported regarding the EENT system. Neuro: No deficits noted. Rod Agitation-Sedation Scale (RASS): 0 - Alert and Calm Level of Consciousness is awake, alert, obeys commands, Oriented to person, place, time, situation, Transcript Evaluator are equal bilaterally Reports numbness in right middle finger. Cardiovascular: No deficits noted. Denies chest pain, shortness of breath, Capillary refill < 3 seconds Clubbing of nail beds is absent JVD is absent Patient's skin is warm and dry. Respiratory: No deficits noted. Airway is patent Respiratory effort is even, unlabored, Respiratory pattern is regular, symmetrical. GI: No deficits noted. No signs and/or symptoms were reported involving the gastrointestinal system. : No signs and/or symptoms were reported regarding the genitourinary system. Derm: No deficits noted. No signs and/or symptoms reported regarding the dermatologic system. Skin is intact, is healthy with good turgor, Skin is dry, Skin is normal, Skin temperature is warm. Musculoskeletal: No deficits noted. No signs and/or symptoms reported regarding the musculoskeletal system. Circulation, motion, and sensation intact. Range of motion: intact in all extremities. 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 - Infectious Disease History:: Denies. - Social history:: Smoking status: Patient reports the use of cigarette tobacco products, smokes one-half pack cigarettes per day, Patient/guardian denies using alcohol, street drugs. Screenin:34 [facility] ED Fall Risk Assessment (Adult) History of falling in the last 3 months, lg3 including since admission No falls in past 3 months (0 pts) Confusion or Disorientation No (0 pts) Intoxicated or Sedated No (0 pts) Impaired Gait No (0 pts) Mobility Assist Device Used No (0 pt) Altered Elimination No (0 pt) Score/Fall Risk Level 0 - 2 = Low Risk Oriented to surroundings, Maintained a safe environment, Educated pt \T\ family on fall prevention, incl call for assistance when getting out of bed, Assessed \T\ reinforced patient's understanding of fall precautions. Abuse screen: Denies threats or abuse. Denies injuries from another. Nutritional screening: No deficits noted. Tuberculosis screening: No symptoms or risk factors identified. Assessment: 05:34 General: see triage assessment. lg3 Vital Signs: 05:27 BP 130 / 71; Pulse 69; Resp 16 S; Temp 97.6(O); Pulse Ox 100% on R/A; Weight 108.86 kg lg3 (R); Height 5 ft. 4 in. (R); 05:27 Body Mass Index 41.20 (108.86 kg, 162.56 cm) lg3 ED Course: 05:24 Patient arrived in ED. jj6 05:24 Zackery Clay MD is Attending Physician. ec2 05:31 Triage completed. lg3 05:31 Arm band placed on right wrist. lg3 05:34 Patient has correct armband on for positive identification. lg3 05:34 No provider procedures requiring assistance completed. Patient did not have IV access lg3 during this emergency room visit. 05:36 Opal Arce RN is Primary Nurse. lg3 Administered Medications: 05:48 Drug: predniSONE PO 40 mg PO once Route: PO; lg3 05:48 Follow up: Response: No adverse reaction; Medication administered at discharge. lg3 05:48 Drug: Ketorolac IM 30 mg IM once Route: IM; Site: right deltoid; lg3 05:48 Follow up: Response: No adverse reaction; Medication administered at discharge. lg3 05:48 Drug: Gabapentin PO 600 mg PO once Route: PO; lg3 05:48 Follow up: Response: No adverse reaction; Medication administered at discharge. lg3 Medication: 05:34 VIS not applicable for this client. lg3 Outcome: 05:32 Discharge ordered by . ec2 05:49 Discharged to home ambulatory, lg3 05:49 Condition: stable 05:49 Discharge instructions given to patient, Instructed on discharge instructions, follow up and referral plans. medication usage, Demonstrated understanding of instructions, follow-up care, medications, Prescriptions given X 2, 05:49 Patient left the ED. lg3 Signatures: Opal Arce RN RN lg3 Gela Daley jj6 Zackery Clay MD MD ec2 Corrections: (The following items were deleted from the chart) 05:32 05:31 Home Meds: Vitamin Oral; lg3 lg3
[2024-10-30] MEDS ORDERED: predniSONE 20 MG TAB ONE (05:38)
[2024-10-30] MEDS ORDERED: GABAPENTIN 300 MG CAP ONE (05:38)
[2024-10-30] MEDS ORDERED: KETOROLAC 30 MG/ML INJ ONE (05:38)
[2024-10-30 11:35] VITALS: BP 130/71; TEMP 97.6; O2SAT 100
== END 2024-10-30 05:49 | disposition home or self-care (01) ==
LOC: ER 05:22
DX: G58.9 Mononeuropathy, unspecified (principal); G56.21 Lesion of ulnar nerve, right upper limb; F17.210 Nicotine dependence, cigarettes, uncomplicated
CPT/HCPCS: J7512

== ENCOUNTER 2024-12-25 21:31 | Emergency (ER) | payer OTHER ==
[2024-12-25 22:06] LABS: Specific Gravity 1.026 (1.005-1.030); Urine Bilirubin NEGATIVE (Negative); Urine Blood Negative (Negative); Urine Clarity Clear (Clear); Urine Color Light-Yellow (Yellow); Urine Glucose NEGATIVE (Negative); Urine Ketones NEGATIVE (Negative); Urine Microscopic Reflex YN NO UMIC; Urine Nitrite NEGATIVE (Negative); Urine Protein NEGATIVE (Negative); Urine Urobilinogen Normal (Normal)
[2024-12-25 22:09] LABS: Specific Gravity 1.026 (1.005-1.030)
--- NOTE | 2024-12-25 22:34 | RAD REPORT ---
EXAMINATION: US Transvaginal OB CLINICAL INDICATION: Female 39 years old.[facility] MAIN Vaginal bleeding;Abd cramping, Bed Name: 16 TECHNIQUE: Real-time ultrasonography of the pelvis was performed transvaginally. Color and spectral D oppler evaluation of the ovaries was performed. COMPARISON: No prior exam. FINDINGS: UTERUS AND CERVIX: The uterus measures 11.3 cm in length. The uterus is retroverted. No focal myometr ial lesions. No masses seen The endometrium is prominent measuring 1.4 cm thickness. No gestational sac visualized. RIGHT OVARY: Normal The right ovary measures 2.9 x 2.4 x 1.7 cm. Normal color and spectral Doppler evaluation of the right ovary.. LEFT OVARY: Normal The left ovary measures 2.5 x 1.8 x 2.4 cm. Normal color and spectral Doppler evaluation of the left ovary.. FREE FLUID: No free fluid. IMPRESSION: No evidence of intrauterine or extrauterine . Serial beta hCG trending and consideration of follow-up ultrasound in 7-10 days with beta-hCG levels suggestive of are recommended.
[2024-12-25 23:26] LABS: Absolute Eosinophils 0.2 K/uL (0-0.5); Absolute Lymphocytes (CBC) 2.1 K/uL (0.7-4.9); Absolute Monocytes 0.6 K/uL (0.1-1.3); Absolute Neutrophil 4.8 K/uL (1.8-8.0); Basophils % 0.4 % (0-1.3); Hematocrit 32.7 % (36.0-45.0); Hemoglobin 10.7 g/dL (12.0-15.0); Lymphocytes % 27.2 % (15.3-44.8); MCH 25.2 pg (27.0-35.0); MCHC 32.6 g/dL (32.0-36.0); MCV 77.3 fL (80-100); MPV 10.4 fL (7.6-11.3); Monocytes % 8.1 % (3.3-12.3); Neutrophils % 62.3 % (41.7-73.7); Platelets 222 thou/uL (152-406); RBC Red Blood Cell Count 4.23 M/uL (3.86-4.86); Red Cell Distribution Width 17.2 % (12.1-15.2)
[2024-12-25 23:37] LABS: Anion Gap 9.4 mEq/L (5.0-15.0); Potassium 3.4 mEq/L (3.5-5.1)
--- NOTE | 2024-12-25 23:45 | EDPHYS ---
Physician Documentation [facility] Name: Suzy Hammer Age: 39 yrs Sex: Female : 1985 Arrival Date: 12/25/2024 Time: 21:31 Bed 16 Private MD: ED Physician Ulises Pastor HPI: 12/25 23:21 This 39 yrs old Female presents to ER via Ambulatory with complaints of kb Vaginal Bleeding, Pelvic Pain. 23:21 Patient is a 39-year-old female who presents for spotting that occurred earlier today kb and resolved but lower abdominal cramps that started this evening. States she has had faint positive UPT's at home so she believes she is . LMP 11/14/2024. A1. 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 - Infectious Disease History:: Denies. - Social history:: Smoking status: Patient reports the use of cigarette tobacco products, Patient uses alcohol, Patient/guardian denies using street drugs. ROS: 23:20 Constitutional: As per HPI kb Exam: 23:20 Constitutional: This is a well developed, well nourished patient who is awake, alert, kb and in no acute distress. Head/Face: Normocephalic, atraumatic. ENT: Moist Mucous membranes Cardiovascular: Regular rate Respiratory: Respirations even and unlabored. No increased work of breathing. Talking in full sentences Abdomen/GI: Soft, non-tender. No distention Skin: Warm, dry with normal turgor. Normal color. MS/ Extremity: Pulses equal, no cyanosis. Neurovascular intact. Full, normal range of motion. Neuro: Awake and alert, GCS 15, oriented to person, place, time, and situation. Vital Signs: 21:39 BP 105 / 77; Pulse 89; Resp 18; Temp 98.6; Pulse Ox 100% ; Weight 110.68 kg; Height 5 bm8 ft. 3 in. ; Pain 03/27; 12/26 00:01 BP 113 / 73; Pulse 77; Resp 16; Temp 98.5; Pulse Ox 100% ; Pain 0/10; mb12 12/25 21:39 Body Mass Index 43.22 (110.68 kg, 160.02 cm) bm8 12/25 21:39 Pain Scale: Adult bm8 12/26 00:01 Pain Scale: Adult mb12 MDM: 12/25 21:35 Medical Screening Exam initiated kb 23:43 Differential diagnosis: threatened Ab, urinary tract infection. Data reviewed: vital kb signs, nurses notes. Counseling: I had a detailed discussion with the patient and/or guardian regarding the historical points, exam findings, and any diagnostic results supporting the discharge/admit diagnosis, lab results, radiology results, the need for outpatient follow up, an OB/Gyne specialist, to return to the emergency department if symptoms worsen or persist or if there are any questions or concerns that arise at home. 12/25 21:42 Order name: Test, Urine; Complete Time: 22:10 kb 12/25 21:42 Order name: Urinalysis w/ reflexes; Complete Time: 22:07 kb 12/25 21:54 Order name: Abo/rh Typing kb 12/25 21:54 Order name: Basic Metabolic Panel; Complete Time: 23:38 kb 12/25 21:54 Order name: CBC with Diff; Complete Time: 23:30 kb 12/25 21:54 Order name: Quantitative Hcg; Complete Time: 23:38 kb 12/25 21:54 Order name: US Transvaginal Ob; Complete Time: 22:35 kb 12/25 21:54 Order name: IV Saline Lock; Complete Time: 23:24 kb 12/25 21:54 Order name: Labs collected and sent; Complete Time: 23:25 kb 12/25 21:54 Order name: NPO; Complete Time: 23:25 kb Administered Medications: No medications were administered Disposition: 12/26 20:04 Co-signature as Attending Physician, Ulises Pastor MD I agree with the assessment sp4 and plan of care. I reviewed the patient's care provided by the Advanced Practice Provider and agree with the diagnosis and treatment plan. Disposition Summary: 12/25/24 23:44 Discharge Ordered Notes: Location: Home kb Condition: Stable kb Diagnosis - Threatened kb Followup: kb - With: Emergency Department - When: As needed - Reason: Worsening of condition Followup: kb - With: Private Physician - When: 2 - 3 days - Reason: Recheck today's complaints, Continuance of care, Re-evaluation by your physician Discharge Instructions: - Discharge Summary Sheet kb - Threatened Miscarriage, [id number] kb - Vaginal Bleeding During , First Trimester, [id number] kb Forms: - Work release form kb - Family Work Release kb - Medication Reconciliation Form kb - Antibiotic Education kb - Prescription Opioid Use kb - Patient Portal Instructions kb - Leadership Thank You Letter kb Signatures: Dispatcher [employer] EDMS Yenny Antony, CEMENT CAR DUMPER-C CEMENT CAR DUMPER-CkUlises Manzanares MD MD sp4 Armando Stewart, RN RN bm8 Corrections: (The following items were deleted from the chart) 12/25 21:55 21:55 ABO/RH TYPING+BB.LAB.BRZ ordered. EDMS EDMS 21:55 21:55 BASIC METABOLIC PANEL+C.LAB.BRZ ordered. EDMS EDMS 21:55 21:55 CBC+H.LAB.BRZ ordered. EDMS EDMS 21:55 21:55 QUANTITATIVE HCG+C.LAB.BRZ ordered. EDMS EDMS
--- NOTE | 2024-12-25 23:45 | ER ---
Nurse's Notes [facility] Name: Suzy Hammer Age: 39 yrs Sex: Female : 1985 Arrival Date: 12/25/2024 Time: 21:31 Bed 16 Private MD: Diagnosis: Threatened Presentation: 12/25 21:39 Chief complaint: Patient states: I think I might possibly be but i started bm8 spotting this morning and am having period like cramping now. Coronavirus screen: Vaccine status: Patient reports receiving the 2nd dose of the covid vaccine. Ebola Screen: Patient negative for fever greater than or equal to 101.5 degrees Fahrenheit, and additional compatible Ebola Virus Disease symptoms Patient denies exposure to infectious person. Patient denies travel to an Ebola-affected area in the 21 days before illness onset. No symptoms or risks identified at this time. Initial Sepsis Screen: Does the patient meet any 2 criteria? No. Patient's initial sepsis screen is negative. Does the patient have a suspected source of infection? No. Patient's initial sepsis screen is negative. Risk Assessment: Do you want to hurt yourself or someone else? Patient reports no desire to harm self or others. Onset of symptoms was December 25, 2024 at 08:00. 21:39 Method Of Arrival: Ambulatory bm8 21:39 Acuity: YULIANA 3 bm8 Triage Assessment: 21:41 General: Appears in no apparent distress. comfortable, Behavior is calm, cooperative, bm8 appropriate for age. Pain: Complains of pain in pelvis Pain currently is 7 out of 10 on a pain scale. EENT: No deficits noted. No signs and/or symptoms were reported regarding the EENT system. Neuro: No deficits noted. Cardiovascular: No deficits noted. Respiratory: No deficits noted. GI: No deficits noted. : Reports vaginal bleeding that is brown. Derm: No signs and/or symptoms reported regarding the dermatologic system. Musculoskeletal: No signs and/or symptoms reported regarding the musculoskeletal system. 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 - Infectious Disease History:: Denies. - Social history:: Smoking status: Patient reports the use of cigarette tobacco products, Patient uses alcohol, Patient/guardian denies using street drugs. Screenin:23 [facility] ED Fall Risk Assessment (Adult) History of falling in the last 3 months, mb12 including since admission No falls in past 3 months (0 pts) Confusion or Disorientation No (0 pts) Intoxicated or Sedated No (0 pts) Impaired Gait No (0 pts) Mobility Assist Device Used No (0 pt) Altered Elimination No (0 pt) Score/Fall Risk Level 0 - 2 = Low Risk Oriented to surroundings, Maintained a safe environment, Educated pt \T\ family on fall prevention, incl call for assistance when getting out of bed, Assessed \T\ reinforced patient's understanding of fall precautions, Hourly rounding (assess needs \T\ fall precautionary measures) done. Abuse screen: Denies threats or abuse. Denies injuries from another. Nutritional screening: No deficits noted. Tuberculosis screening: No symptoms or risk factors identified. Assessment: 23:05 General: Appears in no apparent distress. Behavior is calm, cooperative, appropriate mb12 for age. Pain: Complains of pain in pelvis. Neuro: No deficits noted. Cardiovascular: No deficits noted. Respiratory: No deficits noted. GI: No deficits noted. :. Vital Signs: 21:39 BP 105 / 77; Pulse 89; Resp 18; Temp 98.6; Pulse Ox 100% ; Weight 110.68 kg; Height 5 bm8 ft. 3 in. ; Pain 7/10; 12/26 00:01 BP 113 / 73; Pulse 77; Resp 16; Temp 98.5; Pulse Ox 100% ; Pain 0/10; mb12 12/25 21:39 Body Mass Index 43.22 (110.68 kg, 160.02 cm) bm8 12/25 21:39 Pain Scale: Adult bm8 12/26 00:01 Pain Scale: Adult mb12 ED Course: 12/25 21:33 Patient arrived in ED. jj6 21:35 Yenny Antony FNP-C is PHCP. kb 21:35 Ulises Pastor MD is Attending Physician. kb 21:40 Triage completed. bm8 21:41 Arm band placed on right wrist. bm8 22:20 US Transvaginal Ob In Process Unspecified. EDMS 22:33 PAM CANO, RN is Primary Nurse. dd2 23:23 Patient has correct armband on for positive identification. Placed in gown. Bed in low mb12 position. Call light in reach. Side rails up X 1. Adult w/ patient. Client placed on continuous cardiac and pulse oximetry monitoring. NIBP monitoring applied. dam tender assistant on. 23:24 Inserted saline lock: 20 gauge in left antecubital area, using aseptic technique. Blood mb12 collected. Flushed with 10 mL NS. 23:57 No provider procedures requiring assistance completed. IV discontinued, intact, mb12 bleeding controlled, No redness/swelling at site. Administered Medications: No medications were administered Outcome: 23:44 Discharge ordered by . pb 12/26 00:02 Discharged to home ambulatory, mb12 Condition: stable Discharge instructions given to patient, family, Instructed on discharge instructions, follow up and referral plans. Demonstrated understanding of instructions, follow-up care, medications, 00:03 Patient left the ED. mb12 Signatures: Dispatcher [employer] EDCA Yenny Antony, COMPOUND FINISHER-C COMPOUND FINISHER-Gela Lerner jj6 Armando Stewart, RN RN bm8 PAM CANO, RN RN dd2 Cody Willson mb12
[2024-12-26 00:48] VITALS: O2SAT 100
[2024-12-26 00:50] VITALS: BP 113/73; TEMP 98.5
== END 2024-12-26 00:03 | disposition home or self-care (01) ==
LOC: ER 21:31
DX: O20.0 Threatened abortion (principal)
CPT/HCPCS: 36415; 76817; 80048; 81003; 81025; 84702; 85025; 86900; 86901; 99284